=== PATIENT | female | born 1995 | race Caucasian/White ===

== ENCOUNTER 2017-05-08 15:54 | Observation (INO) | payer BC, OTHER ==
[2017-05-08] MEDS ORDERED: ONDANSETRON 4 MG/2 ML VIAL IVP STA (16:32)
[2017-05-08] MEDS ORDERED: SODIUM CHLORIDE 0.9% 1,000 ML IV ONE (16:32)
--- NOTE | 2017-05-08 16:36 | ED ---
General Adult HPI - General Chief complaint: Abdominal Pain Stated complaint: Abd pain Time Seen by Provider: 05/08/17 16:20 Source: patient, family, RN notes reviewed Mode of arrival: ambulatory Limitations: no limitations - History of Present Illness Initial comments: Chief complaint and history of present illness this is a 22-year-old female with complaint of upper and lower back pain and left lower abdominal pain. Ongoing for approximate 5 days. Nausea no vomiting no fever. The patient has not received a flu shot. Eating increases discomfort. - Related Data Previous Rx's Medication Instructions Recorded Ondansetron Odt [Zofran Odt] 4 mg PO Q8HR PRN #10 tab 05/08/17 Sulfamethox-Tmp 800-160Mg [Bactrim 1 each PO Q12HR #20 tab 05/08/17 DS 800-160 mg] Allergies Allergy/AdvReac Type Severity Reaction Status Date / Time No Known Allergies Allergy Verified 05/08/17 16:39 Review of Systems ROS Statement: Those systems with pertinent positive or pertinent negative responses have been documented in the HPI. review of systems. No headache or visual acuity changes no sore throat. No stiff neck. She complains discomfort to her upper back and shortness of breath. Nausea but no vomiting. Left lower lateral abdominal discomfort. Denies vaginal discharge. No flank pain. No significant change in urinary habits. No rashes no neuro deficits. All systems are reviewed. Past medical problems none. Surgeries none. Family history no cancers. ALLERGIES none. Patient's nonsmoker, nondrinker. She works at [employer] and does some lifting. ROS Other: All systems not noted in ROS Statement are negative. Past Medical History Past Medical History: No Reported History History of Any Multi-Drug Resistant Organisms: None Reported Past Surgical History: No Surgical Hx Reported Past Psychological History: No Psychological Hx Reported Smoking Status: Never smoker Past Alcohol Use History: None Reported Past Drug Use History: None Reported General Exam - General Exam Comments Initial Comments: General: The patient is awake and alert, complains of 5 days of upper back lower back discomfort and left sided abdominal discomfort. Eye: Pupils are equal, round and reactive to light, extra-ocular movements are intact ; there is normal conjunctiva bilaterally. No signs of icterus. Ears, nose, mouth and throat: There are moist mucous membranes and no oral lesions. Neck: The neck is supple, there is no tenderness , no anterior cervical lymphadenopathy. Thyroid mildly enlarged on swallow test. Patient told discuss this with her family physician. Cardiovascular: There is a regular rate and rhythm. No murmur, rub or gallop is appreciated. Respiratory: Lungs are clear to auscultation, respirations are non-labored, breath sounds are equal. No wheezes, stridor, rales, or rhonchi. Gastrointestinal: Soft, non-distended, non-tender abdomen without masses or organomegaly noted. There is no rebound or guarding present. No CVA tenderness. Bowel sounds are unremarkable.patient states her discomfort is to the left lower to lateral abdomen. Back: There is no tenderness to palpation in the midline. There is no obvious deformity. No rashes noted. Musculoskeletal: Normal ROM, no tenderness, There is no pedal edema. There is no calf tenderness or swelling. Sensation intact. Pulses equal bilaterally 2+. Neurological: no neuro deficits Skin: Skin is warm and dry and no rashes or lesions are noted. Psychiatric: Cooperative, no complaint of depression or anxiety. Limitations: no limitations Course Vital Signs 05/08/17 16:05 Temperature 99.1 F Pulse Rate 102 H Respiratory 18 Rate Blood Pressure 129/82 O2 Sat by Pulse 98 Oximetry Medical Decision Making - Medical Decision Making medical decision making; this is a 22-year-old female scone the emergency room because of back pain for 5 days no fever. Nausea no vomiting. She states eating does increase nausea and pain. labs white count 9 hemoglobin 14 hematocrit 45, d-dimer 0.53, calcium 3.7, BUN 14 creatinine 0.8 with a GFR greater than 60. Glucose 84. Plasma lactic acid normal at 0.8. Influenza AB-. test negative. Amylase lipase normal. Urine shows greater than 180 reds and 180 whites. Patient had x-rays the first of which the chest x-ray done and I reviewed the x- ray no evidence of an acute pneumonic infiltrate. No evidence of pneumothorax. bony architecture within normal limits. Awaiting radiologist's final impression. X-ray of the abdomen was done nonspecific gas pattern. No evidence of free air. awaiting radiologist's final impression. I discussed the patient her urinalysis which shows evidence of urinary tract infection. The patient was placed on Bactrim DS one twice a day 10 days and the patient will be advised to get her urine rechecked in 3-4 days later to make sure infections gone. Patient notes any worsening of her condition she is to return emergency room. - Lab Data Result diagrams: 05/08/17 16:15 05/08/17 16:15 Lab Results 05/08/17 05/08/17 05/08/17 Range/Units 16:15 16:15 16:15 WBC 9.0 (3.8-10.6) k/uL RBC 5.08 (3.80-5.40) m/uL Hgb 14.7 (11.4-16.0) gm/dL Hct 45.1 (34.0-46.0) % MCV 88.7 (80.0-100.0) fL MCH 29.0 (25.0-35.0) pg MCHC 32.7 (31.0-37.0) g/dL RDW 13.6 (11.5-15.5) % Plt Count 297 (150-450) k/uL Neutrophils % 84 % Lymphocytes % 10 % Monocytes % 4 % Eosinophils % 1 % Basophils % 0 % Neutrophils # 7.6 (1.3-7.7) k/uL Lymphocytes # 0.9 L (1.0-4.8) k/uL Monocytes # 0.4 (0-1.0) k/uL Eosinophils # 0.1 (0-0.7) k/uL Basophils # 0.0 (0-0.2) k/uL D-Dimer (<0.60) mg/L FEU Sodium 138 (137-145) mmol/L Potassium 3.7 (3.5-5.1) mmol/L Chloride 102 (98-107) mmol/L Carbon Dioxide 26 (22-30) mmol/L Anion Gap 10 mmol/L BUN 14 (7-17) mg/dL Creatinine 0.80 (0.52-1.04) mg/dL Est GFR (MDRD) Af Amer >60 (>60 ml/min/1.73 sqM) Est GFR (MDRD) Non-Af >60 (>60 ml/min/1.73 sqM) Glucose 84 (74-99) mg/dL Plasma Lactic Acid Zeus (0.7-2.0) mmol/L Calcium 9.3 (8.4-10.2) mg/dL Total Bilirubin 0.8 (0.2-1.3) mg/dL AST 21 (14-36) U/L ALT 21 (9-52) U/L Alkaline Phosphatase 68 (38-126) U/L Total Protein 7.3 (6.3-8.2) g/dL Albumin 4.3 (3.5-5.0) g/dL Amylase 44 (30-110) U/L Lipase 33 (23-300) U/L Urine Color Urine Appearance (Clear) Urine pH (5.0-8.0) Ur Specific [place] (1.001-1.035) Urine Protein (Negative) Urine Glucose (UA) (Negative) Urine Ketones (Negative) Urine Blood (Negative) Urine Nitrite (Negative) Urine Bilirubin (Negative) Urine Urobilinogen (<2.0) mg/dL Ur Leukocyte Esterase (Negative) Urine RBC (0-5) /hpf Urine WBC (0-5) /hpf Ur Squamous Epith Cells (0-4) /hpf Urine Mucus (None) /hpf Urine HCG, Qual Not Detected (Not Detectd) Influenza Type A RNA (Not Detectd) Influenza Type B (PCR) (Not Detectd) 05/08/17 05/08/17 05/08/17 Range/Units 16:15 16:15 16:50 WBC (3.8-10.6) k/uL RBC (3.80-5.40) m/uL Hgb (11.4-16.0) gm/dL Hct (34.0-46.0) % MCV (80.0-100.0) fL MCH (25.0-35.0) pg MCHC (31.0-37.0) g/dL RDW (11.5-15.5) % Plt Count (150-450) k/uL Neutrophils % % Lymphocytes % % Monocytes % % Eosinophils % % Basophils % % Neutrophils # (1.3-7.7) k/uL Lymphocytes # (1.0-4.8) k/uL Monocytes # (0-1.0) k/uL Eosinophils # (0-0.7) k/uL Basophils # (0-0.2) k/uL D-Dimer 0.53 (<0.60) mg/L FEU Sodium (137-145) mmol/L Potassium (3.5-5.1) mmol/L Chloride (98-107) mmol/L Carbon Dioxide (22-30) mmol/L Anion Gap mmol/L BUN (7-17) mg/dL Creatinine (0.52-1.04) mg/dL Est GFR (MDRD) Af Amer (>60 ml/min/1.73 sqM) Est GFR (MDRD) Non-Af (>60 ml/min/1.73 sqM) Glucose (74-99) mg/dL Plasma Lactic Acid Zeus 0.8 (0.7-2.0) mmol/L Calcium (8.4-10.2) mg/dL Total Bilirubin (0.2-1.3) mg/dL AST (14-36) U/L ALT (9-52) U/L Alkaline Phosphatase (38-126) U/L Total Protein (6.3-8.2) g/dL Albumin (3.5-5.0) g/dL Amylase (30-110) U/L Lipase (23-300) U/L Urine Color Red Urine Appearance Cloudy H (Clear) Urine pH 5.5 (5.0-8.0) Ur Specific [place] 1.022 (1.001-1.035) Urine Protein 1+ H (Negative) Urine Glucose (UA) Negative (Negative) Urine Ketones Negative (Negative) Urine Blood Large H (Negative) Urine Nitrite Negative (Negative) Urine Bilirubin Negative (Negative) Urine Urobilinogen <2.0 (<2.0) mg/dL Ur Leukocyte Esterase Small H (Negative) Urine RBC >182 H (0-5) /hpf Urine WBC >182 H (0-5) /hpf Ur Squamous Epith Cells 6 H (0-4) /hpf Urine Mucus Occasional H (None) /hpf Urine HCG, Qual (Not Detectd) Influenza Type A RNA (Not Detectd) Influenza Type B (PCR) (Not Detectd) 05/08/17 Range/Units 16:50 WBC (3.8-10.6) k/uL RBC (3.80-5.40) m/uL Hgb (11.4-16.0) gm/dL Hct (34.0-46.0) % MCV (80.0-100.0) fL MCH (25.0-35.0) pg MCHC (31.0-37.0) g/dL RDW (11.5-15.5) % Plt Count (150-450) k/uL Neutrophils % % Lymphocytes % % Monocytes % % Eosinophils % % Basophils % % Neutrophils # (1.3-7.7) k/uL Lymphocytes # (1.0-4.8) k/uL Monocytes # (0-1.0) k/uL Eosinophils # (0-0.7) k/uL Basophils # (0-0.2) k/uL D-Dimer (<0.60) mg/L FEU Sodium (137-145) mmol/L Potassium (3.5-5.1) mmol/L Chloride (98-107) mmol/L Carbon Dioxide (22-30) mmol/L Anion Gap mmol/L BUN (7-17) mg/dL Creatinine (0.52-1.04) mg/dL Est GFR (MDRD) Af Amer (>60 ml/min/1.73 sqM) Est GFR (MDRD) Non-Af (>60 ml/min/1.73 sqM) Glucose (74-99) mg/dL Plasma Lactic Acid Zeus (0.7-2.0) mmol/L Calcium (8.4-10.2) mg/dL Total Bilirubin (0.2-1.3) mg/dL AST (14-36) U/L ALT (9-52) U/L Alkaline Phosphatase (38-126) U/L Total Protein (6.3-8.2) g/dL Albumin (3.5-5.0) g/dL Amylase (30-110) U/L Lipase (23-300) U/L Urine Color Urine Appearance (Clear) Urine pH (5.0-8.0) Ur Specific [place] (1.001-1.035) Urine Protein (Negative) Urine Glucose (UA) (Negative) Urine Ketones (Negative) Urine Blood (Negative) Urine Nitrite (Negative) Urine Bilirubin (Negative) Urine Urobilinogen (<2.0) mg/dL Ur Leukocyte Esterase (Negative) Urine RBC (0-5) /hpf Urine WBC (0-5) /hpf Ur Squamous Epith Cells (0-4) /hpf Urine Mucus (None) /hpf Urine HCG, Qual (Not Detectd) Influenza Type A RNA Not Detected (Not Detectd) Influenza Type B (PCR) Not Detected (Not Detectd) Disposition Clinical Impression: Urinary tract infection Disposition: HOME SELF-CARE Condition: Fair Instructions: Urinary Tract Infection in Women (ED) Additional Instructions: Increase fluids. Take Bactrim twice a day for 10 days, get urine rechecked several days later. Use Zofran for nausea. Increase fluid intake. Return emergency room if he have any difficulties. Prescriptions: Ondansetron Odt [Zofran Odt] 4 mg PO Q8HR PRN #10 tab PRN Reason: Nausea Sulfamethox-Tmp 800-160Mg [Bactrim DS 800-160 mg] 1 each PO Q12HR #20 tab Referrals: None,Stated [Primary Care Provider] - 1-2 days Time of Disposition: 18:05
[2017-05-08 16:47] LABS: Basophils % (A) 0 %; Eosinophils # (A) 0.1 k/uL (0-0.7); Eosinophils % (A) 1 %; HCT 45.1 % (34.0-46.0); HGB 14.7 gm/dL (11.4-16.0); Lymphocytes # (A) 0.9 k/uL (1.0-4.8); Lymphocytes % (A) 10 %; MCHC 32.7 g/dL (31.0-37.0); MCV 88.7 fL (80.0-100.0); Mean Platelet Volume 7.1; Monocytes # (A) 0.4 k/uL (0-1.0); Monocytes % (A) 4 %; Neutrophils # (A) 7.6 k/uL (1.3-7.7); Neutrophils % (A) 84 %; Platelet Count 297 k/uL (150-450); RBC 5.08 m/uL (3.80-5.40); RDW 13.6 % (11.5-15.5)
[2017-05-08 16:56] LABS: ALT 21 U/L (9-52); AST 21 U/L (14-36); Albumin 4.3 g/dL (3.5-5.0); Alkaline Phosphatase 68 U/L (38-126); Amylase 44 U/L (30-110); Anion Gap 10 mmol/L; Blood Urea Nitrogen 14 mg/dL (7-17); Calcium 9.3 mg/dL (8.4-10.2); Carbon Dioxide 26 mmol/L (22-30); Chloride 102 mmol/L (98-107); Glucose 84 mg/dL (74-99); Lipase 33 U/L (23-300); Sodium 138 mmol/L (137-145); Total Bilirubin 0.8 mg/dL (0.2-1.3); Total Protein 7.3 g/dL (6.3-8.2)
[2017-05-08 16:58] LABS: Appearance,Urine Cloudy (Clear); Bilirubin,Urine Negative (Negative); Blood,Urine Large (Negative); Color,Urine Red; Glucose,Urine (UA) Negative (Negative); Ketones,Urine Negative (Negative); Leukocyte Esterase,Urine Small (Negative); Mucus,Urine Occasional /hpf; Nitrite,Urine Negative (Negative); PH, Urine 5.5 (5.0-8.0); Protein,Urine 1+ (Negative); RBC,Urine >182 /hpf (0-5); Specific Gravity,Urine 1.022 (1.001-1.035); Squamous Epithelial Cell,Urine 6 /hpf (0-4); Urobilinogen,Urine <2.0 mg/dL (<2.0); WBC,Urine >182 /hpf (0-5)
[2017-05-08 17:07] LABS: Potassium 3.7 mmol/L (3.5-5.1)
[2017-05-08] MEDS ORDERED: ONDANSETRON 4 MG ODT STARTER PACK 2 TAB BTL PO STA (18:03)
[2017-05-08] MEDS ORDERED: SULFAMETH-TMP DS STARTER PACK 2 TAB BTL PO STA (18:03)
--- NOTE | 2017-05-08 18:05 | XR ---
EXAMINATION: XR chest 2V DATE AND TIME: 05/08/2017 5:21 PM ORDERING PROVIDER: Catracho Rodriguez MD CLINICAL INDICATION: Short of breath left-sided abdominal pain TECHNIQUE: PA and lateral COMPARISON: None. DESCRIPTION: The lungs are clear. The pleural spaces are negative. The cardiac silhouette is not enlarged. The mediastinal and pleural silhouettes are unremarkable. The skeletal structures are intact without focal findings. The soft tissues are unremarkable. IMPRESSION: NO ACUTE PROCESS.
--- NOTE | 2017-05-08 18:07 | XR ---
EXAMINATION TYPE: XR abdomen 3V DATE OF EXAM: 05/08/2017 COMPARISON: 12/07/2014 HISTORY: Left-sided abdominal pain and shortness of breath TECHNIQUE: 2 supine and 1 upright view FINDINGS: There is no pneumatosis and no pneumoperitoneum. No bowel obstruction. The skeletal structu res and soft tissues are unremarkable. IMPRESSION: No acute process.
[2017-05-08] MEDS ORDERED: NALOXONE 0.4 MG/ML 1 ML VIAL IV PRN (18:21)
[2017-05-08] MEDS ORDERED: ACETAMINOPHEN TAB 325 MG TAB PO PRN (18:21)
[2017-05-08] MEDS ORDERED: ONDANSETRON 4 MG/2 ML VIAL IVP PRN (18:21)
[2017-05-08] MEDS ORDERED: SODIUM CHLORIDE 0.9% 1,000 ML IV SCH (18:30)
[2017-05-08] MEDS: cefTRIAXone IN SWFI 1,000 MG/10 ML SYRINGE IVP SCH (19:03)
[2017-05-08] MEDS: SODIUM CHLORIDE 0.9% 1,000 ML IV SCH (19:03)
[2017-05-08] MEDS: FAMOTIDINE 20 MG TAB PO SCH (19:50)
[2017-05-08] MEDS: KETOROLAC 30 MG/ML 1 ML VIAL IVP SCH (20:11)
--- NOTE | 2017-05-08 20:58 | P.HPIM ---
History of Present Illness H&P Date: 05/08/17 Chief Complaint: right flank pain 22 year old female with no singificant past medical history ,, presented with 5 day history of lower back pain radiating to the right flank. She reports sudden onset pain 10/10 in severity, throbbing in nature, that improves with laying still, and worsens with movement , no other associated symptoms, she denies any dysuria, frequency , hematuria, nausea or vomiting, denies any fever or chills. SHe also noticed lower abd pain in the suprapubic region radiating to the right lower quadrant of the abdomen. denies any diarrhea or constipation. She denies any similar events in the past or any history of renal stones. she denies any history of UTI. SHe is sexually active but uses protection, test in the ED was negative. Patient initially was supposed to be sent home from the ED on bactrim, but upon reevaluation prior to discharge she was found in severe pain therefore she was admitted under observation for IV ABx. She denies any recent physical strain, like moving furniture or new workout regimen , she basically reports no changes in her routine life for the past few months, she works at [employer] Upon interviewing the patient , she still reports severe debilitating pain when she moves around, therefore she is trying to lay still . Patient also reported that her period has started today Review of Systems Constitutional: Patient denies fever, denies chills, denies night sweating, denies significant weight changes Eyes: Patient denies visual changes, denies eye pain ENT: Patient denies ear pain, denies rhinorrhea, denies sore throat Cardiovascular: Patient denies chest pain, denies exertional dyspnea, denies peripheral leg edema, denies orthopnea, denies paroxysmal nocturnal dyspnea Respiratory:Patient denies cough, denies wheezing, denies shortness of breath Gastrointestinal: Patient denies diarrhea, denies constipation, denies nausea , denies vomiting Genitourinary: Patient denies dysuria, denies hematuria, denies changes in urinary habits, denies genital lesions Musculoskeletal: Patient denies muscle pain, denies joint pain Psychiatric: Patient denies changes in mood or memory, denies suicidal ideation, denies anxiety Endocrine: Patient denies heat intolerance, denies cold intolerance, denies excessive thirst, denies polyuria Neurological: Patient denies focal neurologic deficits, denies weakness, denies numbness, denies tingling Hem/Lymphatic: Patient denies bleeding tendency, denies bruising, denies swollen lymph glands Allergic/Immun: Patient denies recent allergic reactions Skin: Patient denies rashes, denies pruritis, denies ulcers Past Medical History Past Medical History: No Reported History History of Any Multi-Drug Resistant Organisms: None Reported Past Surgical History: No Surgical Hx Reported Past Anesthesia/Blood Transfusion Reactions: No Reported Reaction Smoking Status: Never smoker - Past Family History Father History Unknown: Yes Mother Family Medical History: Fibromyalgia Additional Family Medical History / Comment(s): emphysema Medications and Allergies Home Medications and Allergies Comment(s): patient takes over the counter aleve occasionally for headaches Home Medications Medication Instructions Recorded Confirmed Type Ondansetron Odt [Zofran Odt] 4 mg PO Q8HR PRN #10 tab 05/08/17 Rx Sulfamethox-Tmp 800-160Mg [Bactrim 1 each PO Q12HR #20 tab 05/08/17 Rx DS 800-160 mg] Allergies Allergy/AdvReac Type Severity Reaction Status Date / Time No Known Allergies Allergy Verified 05/08/17 16:39 Physical Exam Vitals: Vital Signs Temp Pulse Pulse Resp BP BP Pulse Ox 05/08/17 19:42 98.7 F 98 18 115/58 98 05/08/17 18:18 98.7 F 90 16 125/76 98 05/08/17 16:05 99.1 F 102 H 18 129/82 98 Intake and Output 05/08/17 05/08/17 05/08/17 06:59 14:59 22:59 Intake Total 360 Balance 360 Intake: Oral 360 Other: Weight 56.1 kg Patient Weight 05/09/17 06:59 Weight 56.1 kg Constitutional: No acute distress, conversant, pleasant Eyes: Anicteric sclerae, moist conjunctiva, no lid-lag Pupils equal round reactive to light ENMT: NC/AT Oropharynx clear, no erythema, exudates Neck: Supple, FROM, no masses, or JVD No carotid bruits No thyromegaly Lungs: Clear to auscultation Clear to percussion Normal respiratory effort, no accessory muscle use Cardiovascular: Heart regular in rate and rhythm, No murmurs, gallops, or rubs No peripheral edema Abdominal: Soft,, tender to deep palpation over the suprapubic region, no guarding, rebound or rigidity tenderness to palpation of the left CVA Abdomen moving with respiration Normoactive bowel sounds No hepatomegaly, No splenomegaly No palpable mass No abdominal wall hernia noted Skin: Normal temperature, tone, texture, turgor No induration No subcutaneous nodules No rash, lesions No ulcers Extremities: No digital cyanosis No clubbing Pedal pulses intact and symmetrical Radial pulses intact and symmetrical No calf tenderness Psychiatric: Alert and oriented to person, place and time Appropriate affect fair judgement Neuro Muscles Strength 5/5 in all 4 extremities Sensation to light touch grossly present throughout Cranial nerves II-XII grossly intact No focal sensory deficits Lymphatics: no palpable cervical or supraclavicular , or inguinal lymph nodes Results CBC & Chem 7: 05/08/17 16:15 05/08/17 16:15 Labs: Abnormal Lab Results - Last 24 Hours (Table) 05/08/17 05/08/17 Range/Units 16:15 16:15 Lymphocytes # 0.9 L (1.0-4.8) k/uL Urine Appearance Cloudy H (Clear) Urine Protein 1+ H (Negative) Urine Blood Large H (Negative) Ur Leukocyte Esterase Small H (Negative) Urine RBC >182 H (0-5) /hpf Urine WBC >182 H (0-5) /hpf Ur Squamous Epith Cells 6 H (0-4) /hpf Urine Mucus Occasional H (None) /hpf Assessment and Plan Assessment: 22 year old female with no significant history , presented with symptoms of left flank pain, UA was positive, which raised suspicion for acute pyelonephritis (1) Acute pyelonephritis Narrative/Plan: rocephine IV urine culture pain control with toradol symptoms are not typical for kidney stones Current Visit: Yes Status: Acute Code(s): N10 - ACUTE PYELONEPHRITIS SNOMED Code(s): 31100494 (2) DVT prophylaxis Narrative/Plan: heparin sc Current Visit: Yes Status: Acute Code(s): QWK4272 - SNOMED Code(s): 289558879 Plan: Surrogate decision-maker: Colt (sumeet) CODE STATUS:full code DVT prophylaxis: heparin Discussed with: Patient, ER, RN Anticipated discharge: <48 hours observation status Anticipated discharge place: home A total of 42 minutes were spent on the care of this complex patient more than 50% of the time was spent in counseling and care coordination.
[2017-05-09] MEDS: KETOROLAC 30 MG/ML 1 ML VIAL IVP SCH ×4 (02:11→20:14)
[2017-05-09 06:57] LABS: Basophils % (A) 0 %; Eosinophils % (A) 1 %; HCT 41.4 % (34.0-46.0); HGB 13.8 gm/dL (11.4-16.0); Lymphocytes # (A) 0.9 k/uL (1.0-4.8); Lymphocytes % (A) 21 %; MCH 29.2 pg (25.0-35.0); MCHC 33.2 g/dL (31.0-37.0); MCV 87.9 fL (80.0-100.0); Mean Platelet Volume 6.7; Monocytes # (A) 0.3 k/uL (0-1.0); Monocytes % (A) 6 %; Neutrophils # (A) 2.9 k/uL (1.3-7.7); Neutrophils % (A) 69 %; Platelet Count 237 k/uL (150-450); RBC 4.72 m/uL (3.80-5.40); RDW 12.3 % (11.5-15.5); WBC 4.1 k/uL (3.8-10.6)
[2017-05-09 07:14] LABS: Anion Gap 8 mmol/L; Blood Urea Nitrogen 14 mg/dL (7-17); Calcium 8.4 mg/dL (8.4-10.2); Carbon Dioxide 23 mmol/L (22-30); Chloride 107 mmol/L (98-107); Glucose 84 mg/dL (74-99); Potassium 3.8 mmol/L (3.5-5.1); Sodium 138 mmol/L (137-145)
[2017-05-09] MEDS: SODIUM CHLORIDE 0.9% 1,000 ML IV SCH ×3 (09:17→18:30)
[2017-05-09] MEDS: FAMOTIDINE 20 MG TAB PO SCH ×2 (09:18→22:18)
--- NOTE | 2017-05-09 10:40 | P.PN ---
Subjective Progress Note Date: 05/09/17 Principal diagnosis: pyelonephritis 22 y/o female that comes with sxs of fever and flank pain. Today she continues to have pain /10, she denies chill, no dysuria. Objective - Vital Signs Vital signs: Vital Signs Temp 97.4 F L 05/09/17 08:05 Pulse 72 05/09/17 08:05 Resp 16 05/09/17 08:05 BP 114/74 05/09/17 08:05 Pulse Ox 98 05/09/17 08:05 Intake & Output 05/08/17 05/09/17 05/09/17 18:59 06:59 18:59 Intake Total 360 Balance 360 Weight 79.379 kg 56.1 kg Intake: Oral 360 Other: Voiding Method Toilet # Voids 2 - Exam gen:alert and oriented lungs:clear to auscultation heart:s1s2 abdomen:soft and depressible,non tender Lt cva tenderness ext:no edema - Labs CBC & Chem 7: 05/09/17 06:28 05/09/17 06:28 Labs: Abnormal Lab Results - Last 24 Hours (Table) 05/08/17 05/08/17 05/09/17 Range/Units 16:15 16:15 06:28 Lymphocytes # 0.9 L 0.9 L (1.0-4.8) k/uL Urine Appearance Cloudy H (Clear) Urine Protein 1+ H (Negative) Urine Blood Large H (Negative) Ur Leukocyte Esterase Small H (Negative) Urine RBC >182 H (0-5) /hpf Urine WBC >182 H (0-5) /hpf Ur Squamous Epith Cells 6 H (0-4) /hpf Urine Mucus Occasional H (None) /hpf Microbiology - Last 24 Hours (Table) 05/08/17 16:15 Urine Culture - Preliminary Urine,Voided Assessment and Plan (1) Acute pyelonephritis Narrative/Plan: Pain 7 out of 10 at this time UA showing hematuria We'll order CT abdomen and pelvis rule out stone Current Visit: Yes Status: Acute Code(s): N10 - ACUTE PYELONEPHRITIS SNOMED Code(s): 29076471 (2) DVT prophylaxis Current Visit: Yes Status: Acute Code(s): [id number] - SNOMED Code(s): 338882805
--- NOTE | 2017-05-09 11:22 | CT ---
EXAMINATION TYPE: CT abdomen pelvis wo con DATE OF EXAM: 05/09/2017 COMPARISON: NONE HISTORY: Lt flank pain CT DLP: 671.5 mGycm Automated exposure control for dose reduction was used. FINDINGS: Visualized portions of the lungs are clear. There is no pleural or pericardial fluid. The h eart is not enlarged. Within the abdomen, the liver and gallbladder are normal. The spleen is mildly prominent measuring 14 cm. Both adrenal glands are normal. There is no evidence of nephrolithiasis or hydronephrosis. Limited views of the pancreas are normal. There is no significant retroperitoneal, iliac or inguinal adenopathy. The bladder is unremarkable. The uterus is unremarkable. There is follicular change in both ovaries. There is mucosal thickening involving the descending and sigmoid colons. The appendix is normal. Small bowel loops are normal in caliber. No free air and no free fluid is seen. No osseous lesion is seen. IMPRESSION: 1. SPLENOMEGALY. 2. THICKENING OF THE SIGMOID AND DESCENDING COLONS. PLEASE CORRELATE FOR COLITIS. 3. NO EVIDENCE OF HYDRONEPHROSIS OR NEPHROLITHIASIS.
[2017-05-09] MEDS: cefTRIAXone IN SWFI 1,000 MG/10 ML SYRINGE IVP SCH (20:16)
[2017-05-10] MEDS: KETOROLAC 30 MG/ML 1 ML VIAL IVP SCH (01:37)
[2017-05-10 01:50] VITALS: PULSE 74
[2017-05-10 06:36] VITALS: BP 92/58; TEMP 97.9
[2017-05-10 06:38] LABS: HCT 41.6 % (34.0-46.0); HGB 13.4 gm/dL (11.4-16.0); MCH 29.3 pg (25.0-35.0); MCHC 32.1 g/dL (31.0-37.0); MCV 91.3 fL (80.0-100.0); Platelet Count 262 k/uL (150-450); RBC 4.56 m/uL (3.80-5.40); RDW 13.8 % (11.5-15.5); WBC 5.7 k/uL (3.8-10.6)
[2017-05-10 06:56] LABS: Anion Gap 6 mmol/L; Blood Urea Nitrogen 10 mg/dL (7-17); Calcium 8.2 mg/dL (8.4-10.2); Carbon Dioxide 24 mmol/L (22-30); Chloride 109 mmol/L (98-107); Glucose 86 mg/dL (74-99); Potassium 4.1 mmol/L (3.5-5.1); Sodium 139 mmol/L (137-145)
--- NOTE | 2017-05-10 08:38 | P.PN ---
Subjective Progress Note Date: 05/10/17 Principal diagnosis: Flank pain Flank pain better today. No hematuria no dysuria. No fever no chills Objective - Vital Signs Vital signs: Vital Signs Temp 97.9 F 05/10/17 04:00 Pulse 74 05/10/17 04:00 Resp 18 05/10/17 04:00 BP 92/58 05/10/17 04:00 Pulse Ox 96 05/10/17 04:00 Intake & Output 05/09/17 05/10/17 05/10/17 18:59 06:59 18:59 Intake Total 300 Balance 300 Intake: Oral 300 Other: Voiding Method Toilet # Voids 1 1 # Bowel Movements 0 0 - Exam gen:alert and oriented lungs:clear to auscultation heart:s1s2 abdomen:soft and depressible,non tender ext:no edema - Labs CBC & Chem 7: 05/10/17 06:20 05/10/17 06:20 Labs: Abnormal Lab Results - Last 24 Hours (Table) 05/10/17 Range/Units 06:20 Chloride 109 H (98-107) mmol/L Calcium 8.2 L (8.4-10.2) mg/dL Microbiology - Last 24 Hours (Table) 05/08/17 16:15 Urine Culture - Final Urine,Voided Assessment and Plan (1) Urinary tract infection Narrative/Plan: Continue Bactrim for 3 more days Current Visit: Yes Status: Acute Code(s): N39.0 - URINARY TRACT INFECTION, SITE NOT SPECIFIED SNOMED Code(s): 45688847 (2) Flank pain Narrative/Plan: No signs of pyelonephritis CT Current Visit: Yes Status: Acute Code(s): R10.9 - UNSPECIFIED ABDOMINAL PAIN SNOMED Code(s): 541049686 (3) DVT prophylaxis Current Visit: Yes Status: Acute Code(s): JON1789 - SNOMED Code(s): 601525994 Plan: Discharge home today Follow up with Dr. Bee
--- NOTE | 2017-05-10 08:44 | P.DS ---
Providers Date of admission: 05/08/17 18:21 Expected date of discharge: 05/10/17 Attending physician: Melva Curran MD Primary care physician: Stated None - Discharge Diagnosis(es) (1) Urinary tract infection Current Visit: Yes Status: Acute (2) Flank pain Current Visit: Yes Status: Acute (3) DVT prophylaxis Current Visit: Yes Status: Acute Hospital Course: This is a 22-year-old female that presented with symptoms of flank pain. Patient was evaluated in the ER showed some blood in the urine. CT of the abdomen was done was negative. Patient did have bacteria in the urine. At this point patient will be discharged home continue Bactrim for 3 more days then we'll need to follow-up with her primary care physician. Patient was given name of Dr. Alvarez follow-up with her. Condition at discharge stable Discharge time 32 minutes Patient Condition at Discharge: Stable Plan - Discharge Summary Discharge Rx Participant: No New Discharge Prescriptions: New Ondansetron Odt [Zofran Odt] 4 mg PO Q8HR PRN #10 tab PRN Reason: Nausea Sulfamethox-Tmp 800-160Mg [Bactrim DS 800-160 mg] 1 tab PO Q12HR #6 tab Discharge Medication List Ondansetron Odt [Zofran Odt] 4 mg PO Q8HR PRN #10 tab 05/08/17 [Rx] Sulfamethox-Tmp 800-160Mg [Bactrim DS 800-160 mg] 1 tab PO Q12HR #6 tab [Rx] Follow up Appointment(s)/Referral(s): Suzan Bee MD [STAFF PHYSICIAN] - 1 Week Patient Instructions/Handouts: Urinary Tract Infection in Women (ED) Activity/Diet/Wound Care/Special Instructions: Increase fluids. Take Bactrim twice a day for 10 days, get urine rechecked several days later. Use Zofran for nausea. Increase fluid intake. Return emergency room if he have any difficulties.
[2017-05-10 08:51] VITALS: RESP 16
== END 2017-05-10 09:26 | disposition home or self-care (01) ==
LOC: EC 15:54 → 3OBS 18:21 → 6PED 05-09 07:36
PROVIDERS: ADMIT Internal Medicine; ATTEND Internal Medicine
DX: N39.0 Urinary tract infection, site not specified (principal); Z82.5 Family history of asthma and other chronic lower respiratory diseases; Z82.69 Family history of other diseases of the musculoskeletal system and connective tissue
CPT/HCPCS: 96375 ×2; 96376 ×2; 96361; 96374; 99285; 36415; 85379; 80053; 80048 ×2; 82150; 83605; 83690; 85025 ×2; 85027; 81001; 81025; 87086; 87502; 71046; 74019; 74176; G0378 ×3; J2405 ×2; J0696 ×2; J1885 ×3

== ENCOUNTER 2017-08-10 16:39 | Emergency (ER) | payer BC, OTHER ==
--- NOTE | 2017-08-10 17:25 | ED ---
General Adult HPI - General Chief complaint: Extremity Injury, Lower Stated complaint: Knee injury-[facility] Time Seen by Provider: 08/10/17 17:16 Source: patient, RN notes reviewed Mode of arrival: wheelchair Limitations: no limitations - History of Present Illness Initial comments: Patient 22-year-old female presented to the emergency room today with a chief complaint of injury to the left knee that occurred approximately 2 and half hours ago. She does admit that she was at work when she ran into a piece of equipment when she was walking. She states she felt like something popped in the left knee. She states that since that time she had a difficult time ambulating and with flexion at the left knee due to pain. Patient states she did take some ibuprofen after the accident but states it is not made much of an improvement. She denies any other injury or complaint. Patient denies any recent fever, chills, shortness of breath, chest pain, back pain, abdominal pain , nausea or vomiting, numbness or tingling, headaches or visual changes, or any other complaints. - Related Data Home Medications Medication Instructions Recorded Confirmed No Known Home Medications [No 08/10/17 08/10/17 Known Home Medications] Allergies Allergy/AdvReac Type Severity Reaction Status Date / Time No Known Allergies Allergy Verified 08/10/17 18:05 Review of Systems ROS Statement: Those systems with pertinent positive or pertinent negative responses have been documented in the HPI. ROS Other: All systems not noted in ROS Statement are negative. Past Medical History Past Medical History: No Reported History History of Any Multi-Drug Resistant Organisms: None Reported Past Surgical History: No Surgical Hx Reported Past Anesthesia/Blood Transfusion Reactions: No Reported Reaction Past Psychological History: No Psychological Hx Reported Smoking Status: Never smoker Past Alcohol Use History: None Reported Past Drug Use History: None Reported - Past Family History Father History Unknown: Yes Mother Family Medical History: Fibromyalgia Additional Family Medical History / Comment(s): emphysema General Exam - General Exam Comments Initial Comments: General: The patient is awake and alert, in no distress, and does not appear acutely ill. Neck: The neck is supple, there is no tenderness or JVD. Cardiovascular: There is a regular rate and rhythm. No murmur, rub or gallop is appreciated. Respiratory: Lungs are clear to auscultation, respirations are non-labored, breath sounds are equal. No wheezes, stridor, rales, or rhonchi. Musculoskeletal: Normal appearance of the left knee no obvious deformity. Patient shows limited range of motion of flexion at the left knee due to pain. She is tender over the anterior aspect. Tender over the patella. No other bony tenderness on exam. Sensation intact. Neurological: A&O x 3. CN II-XII intact, There are no obvious motor or sensory deficits. Coordination appears grossly intact. Speech is normal. Skin: Skin is warm and dry and no rashes or lesions are noted. Psychiatric: Normal mood and affect. Limitations: no limitations Course Vital Signs 08/10/17 17:15 Temperature 98 F Pulse Rate 85 Respiratory 16 Rate Blood Pressure 130/77 O2 Sat by Pulse 99 Oximetry Medical Decision Making - Medical Decision Making Patient's x-rays reviewed are negative for any acute fracture dislocation. Patient will be placed in knee immobilizer given prescription for crutches and advised follow-up with employee health orthopedics for further evaluation. Advised ice elevate the affected area and continue with ibuprofen for pain. Disposition Clinical Impression: Knee injury Disposition: HOME SELF-CARE Condition: Good Instructions: Knee Pain (ED) Additional Instructions: Please line when up and moving around. Please do not sleep with it on. Please use crutches with weightbearing as tolerated and follow-up with employee health or orthopedics over the next 2 days. Please continue ibuprofen for pain. Please return to emergency room if the symptoms increase or worsen or for any other concerns. Is patient prescribed a controlled substance at d/c from ED?: No Referrals: None,Stated [Primary Care Provider] - 1-2 days Christopher Salazar MD [STAFF PHYSICIAN] - 1-2 days Time of Disposition: 18:21
[2017-08-10 17:29] VITALS: BP 130/77; PULSE 85; RESP 16; TEMP 98
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
== END 2017-08-10 18:50 | disposition home or self-care (01) ==
LOC: EC 16:39
DX: S89.92XA Unspecified injury of left lower leg, initial encounter (principal); Z02.9 Encounter for administrative examinations, unspecified; Y99.0 Civilian activity done for income or pay; Y93.01 Activity, walking, marching and hiking; W22.8XXA Striking against or struck by other objects, initial encounter
CPT/HCPCS: 73564; 99214; 99283; L1830 ×2

== ENCOUNTER 2017-09-20 18:44 | Emergency (ER) | payer BC, OTHER ==
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
[2017-09-20 19:25] LABS: Basophils # (A) 0.1 k/uL (0-0.2); Basophils % (A) 1 %; Eosinophils # (A) 0.2 k/uL (0-0.7); Eosinophils % (A) 2 %; HCT 42.5 % (34.0-46.0); HGB 14.5 gm/dL (11.4-16.0); Lymphocytes # (A) 2.5 k/uL (1.0-4.8); Lymphocytes % (A) 26 %; MCH 29.8 pg (25.0-35.0); MCHC 34.2 g/dL (31.0-37.0); MCV 87.1 fL (80.0-100.0); Mean Platelet Volume 6.5; Monocytes # (A) 0.4 k/uL (0-1.0); Monocytes % (A) 5 %; Neutrophils # (A) 6.4 k/uL (1.3-7.7); Neutrophils % (A) 66 %; Platelet Count 349 k/uL (150-450); RBC 4.88 m/uL (3.80-5.40); RDW 12.7 % (11.5-15.5); WBC 9.6 k/uL (3.8-10.6)
[2017-09-20 19:32] LABS: Partial Thromboplastin Time 25.7 sec (22.0-30.0); Prothrombin Time 10.1 sec (9.0-12.0)
[2017-09-20 19:34] LABS: ALT 25 U/L (9-52); AST 20 U/L (14-36); Albumin 4.3 g/dL (3.5-5.0); Alcohol <10 mg/dL; Alkaline Phosphatase 78 U/L (38-126); Anion Gap 14 mmol/L; Blood Urea Nitrogen 13 mg/dL (7-17); Calcium 9.4 mg/dL (8.4-10.2); Carbon Dioxide 24 mmol/L (22-30); Chloride 106 mmol/L (98-107); Glucose 91 mg/dL (74-99); Potassium 4.1 mmol/L (3.5-5.1); Sodium 144 mmol/L (137-145); Total Bilirubin 0.6 mg/dL (0.2-1.3); Total Protein 7.3 g/dL (6.3-8.2)
[2017-09-20 19:37] LABS: Creatine Kinase 71 U/L (30-135)
[2017-09-20 19:38] LABS: Alcohol <10 mg/dL; Amylase 51 U/L (30-110); Lipase 62 U/L (23-300)
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
[2017-09-20 19:50] LABS: Creatine Kinase MB 0.3 ng/mL (0.0-2.4); HCG,Quantitative Serum <2.4 mIU/mL; Troponin I <0.012 ng/mL (0.000-0.034)
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
[2017-09-20 20:55] LABS: Appearance,Urine Clear (Clear); Bacteria,Urine Rare /hpf; Bilirubin,Urine Negative (Negative); Blood,Urine Large (Negative); Color,Urine Yellow; Glucose,Urine (UA) Negative (Negative); Ketones,Urine Trace (Negative); Leukocyte Esterase,Urine Trace (Negative); Mucus,Urine Occasional /hpf; Nitrite,Urine Negative (Negative); PH, Urine 6.5 (5.0-8.0); Protein,Urine 1+ (Negative); RBC,Urine >182 /hpf (0-5); Specific Gravity,Urine 1.026 (1.001-1.035); Squamous Epithelial Cell,Urine 3 /hpf (0-4); WBC,Urine 9 /hpf (0-5)
[2017-09-20 21:03] LABS: Amphetamine Screen,Urine Not Detected (NotDetected); Barbiturate Screen,Urine Not Detected (NotDetected); Benzodiazepines Screen,Urine Not Detected (NotDetected); Cocaine Screen,Urine Not Detected (NotDetected); Methadone Screen, Urine Not Detected (NotDetected); Opiate Screen,Urine Not Detected (NotDetected); Oxycodone Screen, Urine Not Detected (NotDetected); Phencyclidine Screen,Urine Not Detected (NotDetected); Tricyclic Antidepressant,Urine Not Detected (NotDetected); Urn Cannabinoid Scrn Not Detected (NotDetected)
[2017-09-20 22:45] VITALS: BP 123/63; PULSE 72; RESP 17; TEMP 98.1
== END 2017-09-20 22:35 | disposition home or self-care (01) ==
LOC: EC 18:44
DX: S06.0X0A Concussion without loss of consciousness, initial encounter (principal); M54.2 Cervicalgia; V86.09XA Driver of other special all-terrain or other off-road motor vehicle injured in traffic accident, initial encounter; Y92.410 Unspecified street and highway as the place of occurrence of the external cause
CPT/HCPCS: 99285; 36415; 93005; 86900; 86901; 80053; 82150; 82550; 82553; 83605; 83690; 84484; 85025; 85610; 85730; 86850; 81001; 81025; 84702; 80306; 80320; 72170; 71045; 72125; 70450; L0120

== ENCOUNTER → 2017-12-03 | Outpatient (CLI) | payer BC ==
--- NOTE | 2017-12-03 09:54 | XR ---
EXAMINATION TYPE: XR foot complete LT DATE OF EXAM: 12/03/2017 COMPARISON: NONE HISTORY: Pain and swelling TECHNIQUE: Three views are submitted. FINDINGS: The osseous structures are intact. There is no acute fracture or dislocation. Joint spaces are p reserved. IMPRESSION: 1. No acute fracture or dislocation. If symptoms persist, follow-up exam in 7 to 10 days could be ob tained.
== END | disposition home or self-care (01) ==
LOC: RADXRMAIN 08:52
PROVIDERS: ATTEND Physician Assistant
DX: M79.672 Pain in left foot (principal)

== ENCOUNTER → 2017-12-04 | Outpatient (CLI) | payer BC ==
--- NOTE | 2017-12-04 13:15 | XR ---
Left ankle HISTORY: Pain 3 views of the left ankle There is soft tissue swelling present. Bone mineralization, joint spaces and alignment are maintained . No fracture or dislocation. IMPRESSION: Soft tissue swelling.
== END | disposition home or self-care (01) ==
LOC: RADXRMAIN 10:03
PROVIDERS: ATTEND Physician Assistant
DX: M79.89 Other specified soft tissue disorders (principal); M25.572 Pain in left ankle and joints of left foot

== ENCOUNTER 2018-10-29 19:14 | Emergency (ER) | payer BC, OTHER ==
[2018-10-29] MEDS ORDERED: METOCLOPRAMIDE 5 MG/ML 2 ML VIAL IVP STA (21:37)
[2018-10-29] MEDS ORDERED: DEXTROSE 5%-0.45% NACL 1,000 ML IV ONE (21:37)
[2018-10-29] MEDS ORDERED: ACETAMINOPHEN TAB 325 MG TAB PO STA (22:00)
--- NOTE | 2018-10-29 22:15 | ED ---
Nausea/Vomiting/Diarrhea HPI - General Chief complaint: Abdominal Pain Stated complaint: 11 weeks , vomiting, back pain Time Seen by Provider: 10/29/18 21:36 Source: patient, family Mode of arrival: EMS Limitations: no limitations - History of Present Illness Initial comments: This patient is 23-year-old woman who presents with complaint of having several days of epigastric discomfort and also multiple episodes of vomiting and continuous nausea. The patient relates this to being . She states she found out at the end of September that she was using a home test, and that she has had more or less continuous nausea since that time. She states she had been able to keep down some food and fluids until the last several days when she is not keeping much of anything down. She describes the epigastric feeling as a discomfort, that gets worse a little with eating. It is moderate intensity. No relieving factors. No change in urination or bowel movements. She states she has vomiting which tries to eat most things and sometimes with drinking fluids as well. No vaginal discharge or bleeding. Patient is MD complaint: nausea, vomiting, abdominal pain -: days(s) Description of Vomiting: food contents Associated Abdominal Pain: Yes Location: epigastric Radiation: none Severity: moderate Quality: dull Consistency: intermittent Improves with: none Worsens with: vomiting - Related Data Home Medications Medication Instructions Recorded Confirmed Acetaminophen [Tylenol] 325 mg PO DAILY PRN 10/29/18 10/29/18 Xtr-Dlca-Quiin Acid 1 cap PO DAILY 10/29/18 10/29/18 [-U Capsule (formulary)] Allergies Allergy/AdvReac Type Severity Reaction Status Date / Time No Known Allergies Allergy Verified 10/29/18 22:24 Review of Systems ROS Statement: Those systems with pertinent positive or pertinent negative responses have been documented in the HPI. ROS Other: All systems not noted in ROS Statement are negative. Constitutional: Denies: fever, chills Respiratory: Denies: cough, dyspnea Cardiovascular: Denies: chest pain, palpitations, edema Gastrointestinal: Reports: as per HPI, abdominal pain, nausea, vomiting. Denies: diarrhea, constipation, hematemesis, melena, hematochezia Genitourinary: Denies: dysuria, frequency, hematuria, discharge, abnormal menses Musculoskeletal: Denies: back pain Skin: Denies: rash Neurological: Denies: headache, weakness, numbness Past Medical History Past Medical History: No Reported History History of Any Multi-Drug Resistant Organisms: None Reported Past Surgical History: No Surgical Hx Reported Past Anesthesia/Blood Transfusion Reactions: No Reported Reaction Past Psychological History: No Psychological Hx Reported Smoking Status: Never smoker Past Alcohol Use History: None Reported Past Drug Use History: None Reported - Past Family History Father History Unknown: Yes Mother Family Medical History: Fibromyalgia Additional Family Medical History / Comment(s): emphysema General Exam Limitations: no limitations General appearance: alert, in no apparent distress Head exam: Present: atraumatic, normocephalic Eye exam: Present: normal appearance. Absent: scleral icterus, conjunctival injection ENT exam: Present: mucous membranes dry Respiratory exam: Present: normal lung sounds bilaterally. Absent: respiratory distress, wheezes, rales, rhonchi, stridor Cardiovascular Exam: Present: regular rate, normal rhythm, normal heart sounds. Absent: systolic murmur, diastolic murmur, rubs, gallop GI/Abdominal exam: Present: soft, normal bowel sounds. Absent: distended, tenderness, guarding, rebound, rigid, mass, hernia Extremities exam: Present: normal inspection, normal capillary refill. Absent: pedal edema, calf tenderness Back exam: Present: normal inspection. Absent: CVA tenderness (R), CVA tenderness (L) Neurological exam: Present: alert Skin exam: Present: warm, dry, intact, normal color. Absent: rash Course Vital Signs 10/29/18 10/30/18 20:06 01:17 Temperature 98.7 F 98.4 F Pulse Rate 80 62 Respiratory 18 16 Rate Blood Pressure 124/81 118/57 O2 Sat by Pulse 100 98 Oximetry Medical Decision Making - Lab Data Result diagrams: 10/29/18 22:45 10/29/18 22:45 Lab Results 10/29/18 10/29/18 10/29/18 Range/Units 22:26 22:45 22:45 WBC 10.0 (3.8-10.6) k/uL RBC 4.82 (3.80-5.40) m/uL Hgb 14.0 (11.4-16.0) gm/dL Hct 41.5 (34.0-46.0) % MCV 86.1 (80.0-100.0) fL MCH 29.0 (25.0-35.0) pg MCHC 33.7 (31.0-37.0) g/dL RDW 12.5 (11.5-15.5) % Plt Count 293 (150-450) k/uL Neutrophils % 70 % Lymphocytes % 25 % Monocytes % 3 % Eosinophils % 1 % Basophils % 0 % Neutrophils # 7.0 (1.3-7.7) k/uL Lymphocytes # 2.5 (1.0-4.8) k/uL Monocytes # 0.3 (0-1.0) k/uL Eosinophils # 0.1 (0-0.7) k/uL Basophils # 0.0 (0-0.2) k/uL Sodium 137 (137-145) mmol/L Potassium 3.8 (3.5-5.1) mmol/L Chloride 103 (98-107) mmol/L Carbon Dioxide 22 (22-30) mmol/L Anion Gap 12 mmol/L BUN 4 L (7-17) mg/dL Creatinine 0.49 L (0.52-1.04) mg/dL Est GFR (CKD-EPI)AfAm >90 (>60 ml/min/1.73 sqM) Est GFR (CKD-EPI)NonAf >90 (>60 ml/min/1.73 sqM) Glucose 73 L (74-99) mg/dL Calcium 10.0 (8.4-10.2) mg/dL Total Bilirubin 1.4 H (0.2-1.3) mg/dL AST 23 (14-36) U/L ALT 21 (9-52) U/L Alkaline Phosphatase 43 (38-126) U/L Total Protein 7.3 (6.3-8.2) g/dL Albumin 4.5 (3.5-5.0) g/dL Amylase 54 (30-110) U/L Lipase 34 (23-300) U/L HCG, Quant 98741.1 mIU/mL Urine Color Yellow Urine Appearance Cloudy H (Clear) Urine pH 5.5 (5.0-8.0) Ur Specific [place] 1.025 (1.001-1.035) Urine Protein Trace H (Negative) Urine Glucose (UA) Negative (Negative) Urine Ketones 2+ H (Negative) Urine Blood Negative (Negative) Urine Nitrite Negative (Negative) Urine Bilirubin Negative (Negative) Urine Urobilinogen 2.0 (<2.0) mg/dL Ur Leukocyte Esterase Moderate H (Negative) Urine RBC 5 (0-5) /hpf Urine WBC 5 (0-5) /hpf Ur Squamous Epith Cells 14 H (0-4) /hpf Urine Mucus Many H (None) /hpf Disposition Clinical Impression: Hyperemesis Disposition: HOME SELF-CARE Condition: Good Instructions (If sedation given, give patient instructions): Hyperemesis Gravi darum (ED) Is patient prescribed a controlled substance at d/c from ED?: No Referrals: None,Stated [Primary Care Provider] - 1-2 days
[2018-10-29 22:59] LABS: Basophils % (A) 0 %; Eosinophils # (A) 0.1 k/uL (0-0.7); Eosinophils % (A) 1 %; HCT 41.5 % (34.0-46.0); Lymphocytes # (A) 2.5 k/uL (1.0-4.8); Lymphocytes % (A) 25 %; MCHC 33.7 g/dL (31.0-37.0); MCV 86.1 fL (80.0-100.0); Mean Platelet Volume 6.7; Monocytes # (A) 0.3 k/uL (0-1.0); Monocytes % (A) 3 %; Neutrophils % (A) 70 %; Platelet Count 293 k/uL (150-450); RBC 4.82 m/uL (3.80-5.40); RDW 12.5 % (11.5-15.5)
[2018-10-29 23:10] LABS: ALT 21 U/L (9-52); AST 23 U/L (14-36); African American GFR (CKD) >90 (>60 ml/min/1.73 sqM); Albumin 4.5 g/dL (3.5-5.0); Alkaline Phosphatase 43 U/L (38-126); Amylase 54 U/L (30-110); Anion Gap 12 mmol/L; Blood Urea Nitrogen 4 mg/dL (7-17); Carbon Dioxide 22 mmol/L (22-30); Chloride 103 mmol/L (98-107); Glucose 73 mg/dL (74-99); Lipase 34 U/L (23-300); Potassium 3.8 mmol/L (3.5-5.1); Sodium 137 mmol/L (137-145); Total Bilirubin 1.4 mg/dL (0.2-1.3); Total Protein 7.3 g/dL (6.3-8.2)
[2018-10-30 00:09] LABS: HCG,Quantitative Serum 53271.1 mIU/mL
[2018-10-30 00:09] LABS: Appearance,Urine Cloudy (Clear); Bilirubin,Urine Negative (Negative); Blood,Urine Negative (Negative); Color,Urine Yellow; Glucose,Urine (UA) Negative (Negative); Ketones,Urine 2+ (Negative); Leukocyte Esterase,Urine Moderate (Negative); Mucus,Urine Many /hpf; Nitrite,Urine Negative (Negative); PH, Urine 5.5 (5.0-8.0); Protein,Urine Trace (Negative); RBC,Urine 5 /hpf (0-5); Specific Gravity,Urine 1.025 (1.001-1.035); Squamous Epithelial Cell,Urine 14 /hpf (0-4); WBC,Urine 5 /hpf (0-5)
[2018-10-30] MEDS ORDERED: DEXTROSE 5%-0.45% NACL 1,000 ML IV ONE (01:05)
[2018-10-30 03:51] VITALS: BP 96/55; PULSE 67; RESP 18; TEMP 98
== END 2018-10-30 03:54 | disposition home or self-care (01) ==
LOC: EC 19:14
DX: O21.0 Mild hyperemesis gravidarum (principal); Z3A.11 11 weeks gestation of pregnancy
CPT/HCPCS: 36415; 80053; 82150; 83690; 85025; 81001; 84702; 99284; 96374; 96361 ×4; J2765

== ENCOUNTER 2019-04-15 13:15 | Emergency (ER) | payer BC, OTHER ==
[2019-04-15 14:03] VITALS: RESP 18; TEMP 97.7
[2019-04-15] MEDS ORDERED: SODIUM CHLORIDE 0.9% 1,000 ML IV STA ×2 (14:52)
--- NOTE | 2019-04-15 15:31 | ED ---
Dizziness HPI - General Chief Complaint: Dizziness Stated Complaint: Near syncope Time Seen by Provider: 04/15/19 14:43 Source: patient, family, RN notes reviewed, old records reviewed Mode of arrival: ambulatory - History of Present Illness Initial Comments: 24-year-old female presents today for evaluation for dizziness and lightheadedness. She reports that she's been having these symptoms off and on for the past week. She states it occurred salicylates afterward. She reports that she followed with her CUSTOMER ENGAGEMENT MANAGER yesterday, started return. She is 36 weeks . She was told at that time is likely orthostatic blood pressure changes. States that she's been trying to stay hydrated. Patient states that she has had no chest pain, headaches or shortness of breath. She denies any abdominal pain or vaginal bleeding or discharge. - Related Data Home Medications Medication Instructions Recorded Confirmed Acetaminophen [Tylenol] 325 mg PO DAILY PRN 10/29/18 10/29/18 Vhz-Pijg-Inhgl Acid 1 cap PO DAILY 10/29/18 10/29/18 [-U Capsule (formulary)] Allergies Allergy/AdvReac Type Severity Reaction Status Date / Time No Known Allergies Allergy Verified 10/29/18 22:24 Review of Systems ROS Statement: Those systems with pertinent positive or pertinent negative responses have been documented in the HPI. ROS Other: All systems not noted in ROS Statement are negative. Past Medical History Past Medical History: No Reported History History of Any Multi-Drug Resistant Organisms: None Reported Past Surgical History: No Surgical Hx Reported Past Anesthesia/Blood Transfusion Reactions: No Reported Reaction Past Psychological History: No Psychological Hx Reported Smoking Status: Never smoker Past Alcohol Use History: None Reported Past Drug Use History: None Reported - Past Family History Father History Unknown: Yes Mother Family Medical History: Fibromyalgia Additional Family Medical History / Comment(s): emphysema General Exam - General Exam Comments Initial Comments: 24-year-old female. Alert and oriented 3. No distress.General: Well appearing, well nourished, in no distress. Oriented x 3, normal mood and affect . Ambulating without difficulty. Skin: Good turgor, no rash, unusual bruising or prominent lesions Hair: Normal texture and distribution. HEENT: Head: Normocephalic, atraumatic, no visible or palpable masses, depressions, or scaring. Eyes: Visual acuity intact, conjunctiva clear, sclera non-icteric, EOM intact, PERRL. Ears: EACs clear, TMs translucent & cone of light visualized. hearing intact. Nose: No external lesions, mucosa non-inflamed, septum and turbinates normal Mouth: Mucous membranes moist, no mucosal lesions. Teeth/Gums: No obvious caries or periodontal disease. No gingival inflammation or significant resorption. Pharynx: Mucosa non-inflamed, no tonsillar hypertrophy or exudate Neck: Supple, without lesions, bruits, or adenopathy, thyroid non-enlarged and non-tender Heart: No cardiomegaly or thrills; regular rate and rhythm, no murmur or gallop Lungs: Clear to auscultation and percussion Abdomen: Bowel sounds normal, no tenderness, organomegaly, masses, or hernia Back: Spine normal without deformity or tenderness, no CVA tenderness Extremities: No amputations or deformities, cyanosis, edema or varicosities, peripheral pulses intact Musculoskeletal: Normal gait and station. No misalignment, asymmetry, crepitation, defects, tenderness, masses, effusions, decreased range of motion, instability, atrophy or abnormal strength or tone in the head, neck, spine, ribs, pelvis or extremities. Neurologic: CN 2-12 normal. Sensation to pain, touch, and proprioception normal. DTRs normal in upper and lower extremities. No pathologic reflexes. Course Vital Signs 04/15/19 13:58 Temperature 97.7 F Pulse Rate 90 Respiratory 18 Rate Blood Pressure 121/81 O2 Sat by Pulse 99 Oximetry Medical Decision Making - Medical Decision Making 24-year-old female. Alert and oriented 3. Since today for concerns for dizziness. Patient has had no symptoms related to the dizziness vomiting headache or chest pain. Patient given IV fluids labwork obtained. Orthostatic blood pressures did show some changes, standing her blood pressure was 130/64. We'll laying down on . Heart rate jumped from 73 beats were minute while laying down to 93 bpm standing up. Discusses likely related to dehydration as well as she did have a mildly low blood sugar at 63. Discussed she needs to eat frequent sex was given 1 emergency department. Able to tolerate eating and drinking well. I discussed Patient to follow-up with her primary care doctor and CUSTOMER ENGAGEMENT MANAGER. Discussed resting and will write the Patient note for work. - Lab Data Result diagrams: 04/15/19 15:35 04/15/19 15:35 Lab Results 04/15/19 04/15/19 04/15/19 Range/Units 15:35 15:35 15:35 WBC 11.6 H (3.8-10.6) k/uL RBC 4.77 (3.80-5.40) m/uL Hgb 14.3 (11.4-16.0) gm/dL Hct 43.2 (34.0-46.0) % MCV 90.7 (80.0-100.0) fL MCH 30.0 (25.0-35.0) pg MCHC 33.1 (31.0-37.0) g/dL RDW 12.4 (11.5-15.5) % Plt Count 273 (150-450) k/uL Neutrophils % 74 % Lymphocytes % 19 % Monocytes % 4 % Eosinophils % 1 % Basophils % 0 % Neutrophils # 8.7 H (1.3-7.7) k/uL Lymphocytes # 2.2 (1.0-4.8) k/uL Monocytes # 0.5 (0-1.0) k/uL Eosinophils # 0.1 (0-0.7) k/uL Basophils # 0.0 (0-0.2) k/uL PT 9.4 (9.0-12.0) sec INR 0.9 (<1.2) Sodium 136 L (137-145) mmol/L Potassium 4.2 (3.5-5.1) mmol/L Chloride 102 (98-107) mmol/L Carbon Dioxide 25 (22-30) mmol/L Anion Gap 9 mmol/L BUN 5 L (7-17) mg/dL Creatinine 0.48 L (0.52-1.04) mg/dL Est GFR (CKD-EPI)AfAm >90 (>60 ml/min/1.73 sqM) Est GFR (CKD-EPI)NonAf >90 (>60 ml/min/1.73 sqM) Glucose 68 L (74-99) mg/dL Calcium 10.0 (8.4-10.2) mg/dL Magnesium 1.5 L (1.6-2.3) mg/dL Total Bilirubin 1.1 (0.2-1.3) mg/dL AST 23 (14-36) U/L ALT 10 (4-34) U/L Alkaline Phosphatase 173 H (38-126) U/L Total Protein 7.3 (6.3-8.2) g/dL Albumin 4.0 (3.5-5.0) g/dL Urine Color Urine Appearance (Clear) Urine pH (5.0-8.0) Ur Specific [place] (1.001-1.035) Urine Protein (Negative) Urine Glucose (UA) (Negative) Urine Ketones (Negative) Urine Blood (Negative) Urine Nitrite (Negative) Urine Bilirubin (Negative) Urine Urobilinogen (<2.0) mg/dL Ur Leukocyte Esterase (Negative) Urine RBC (0-5) /hpf Urine WBC (0-5) /hpf Ur Squamous Epith Cells (0-4) /hpf Urine Bacteria (None) /hpf Urine Mucus (None) /hpf Influenza Type A RNA (Not Detectd) Influenza Type B (PCR) (Not Detectd) 04/15/19 04/15/19 Range/Units 15:35 15:35 WBC (3.8-10.6) k/uL RBC (3.80-5.40) m/uL Hgb (11.4-16.0) gm/dL Hct (34.0-46.0) % MCV (80.0-100.0) fL MCH (25.0-35.0) pg MCHC (31.0-37.0) g/dL RDW (11.5-15.5) % Plt Count (150-450) k/uL Neutrophils % % Lymphocytes % % Monocytes % % Eosinophils % % Basophils % % Neutrophils # (1.3-7.7) k/uL Lymphocytes # (1.0-4.8) k/uL Monocytes # (0-1.0) k/uL Eosinophils # (0-0.7) k/uL Basophils # (0-0.2) k/uL PT (9.0-12.0) sec INR (<1.2) Sodium (137-145) mmol/L Potassium (3.5-5.1) mmol/L Chloride (98-107) mmol/L Carbon Dioxide (22-30) mmol/L Anion Gap mmol/L BUN (7-17) mg/dL Creatinine (0.52-1.04) mg/dL Est GFR (CKD-EPI)AfAm (>60 ml/min/1.73 sqM) Est GFR (CKD-EPI)NonAf (>60 ml/min/1.73 sqM) Glucose (74-99) mg/dL Calcium (8.4-10.2) mg/dL Magnesium (1.6-2.3) mg/dL Total Bilirubin (0.2-1.3) mg/dL AST (14-36) U/L ALT (4-34) U/L Alkaline Phosphatase (38-126) U/L Total Protein (6.3-8.2) g/dL Albumin (3.5-5.0) g/dL Urine Color Yellow Urine Appearance Cloudy H (Clear) Urine pH 6.0 (5.0-8.0) Ur Specific [place] 1.017 (1.001-1.035) Urine Protein Trace H (Negative) Urine Glucose (UA) Negative (Negative) Urine Ketones Negative (Negative) Urine Blood Negative (Negative) Urine Nitrite Negative (Negative) Urine Bilirubin Negative (Negative) Urine Urobilinogen 2.0 (<2.0) mg/dL Ur Leukocyte Esterase Moderate H (Negative) Urine RBC 2 (0-5) /hpf Urine WBC 3 (0-5) /hpf Ur Squamous Epith Cells 67 H (0-4) /hpf Urine Bacteria Occasional H (None) /hpf Urine Mucus Few H (None) /hpf Influenza Type A RNA Not Detected (Not Detectd) Influenza Type B (PCR) Not Detected (Not Detectd) 04/15/19 17:17 EKG performed at 1536 shows normal sinus rhythm and voltage for LVH may be a normal variant. T wave at O'Sri considering for ischemia. Ventricular rate 93 bpm. Intervals 112 ms. QRS ration 70 ms. QT QTc 350/420 ms. - Radiology Data Radiology results: report reviewed Disposition Clinical Impression: Orthostatic dizziness Disposition: HOME SELF-CARE Condition: Good Instructions (If sedation given, give patient instructions): Dizziness (ED) Additional Instructions: Patient advised to rest, remain hydrated. Drink plenty of fluids any frequent snacks. Follow-up with CUSTOMER ENGAGEMENT MANAGER and PCP. Is patient prescribed a controlled substance at d/c from ED?: No Referrals: None,Stated [Primary Care Provider] - 1-2 days Time of Disposition: 17:15
[2019-04-15 16:00] LABS: Basophils % (A) 0 %; Eosinophils # (A) 0.1 k/uL (0-0.7); Eosinophils % (A) 1 %; HCT 43.2 % (34.0-46.0); HGB 14.3 gm/dL (11.4-16.0); Lymphocytes # (A) 2.2 k/uL (1.0-4.8); Lymphocytes % (A) 19 %; MCHC 33.1 g/dL (31.0-37.0); MCV 90.7 fL (80.0-100.0); Mean Platelet Volume 8.7; Monocytes # (A) 0.5 k/uL (0-1.0); Monocytes % (A) 4 %; Neutrophils # (A) 8.7 k/uL (1.3-7.7); Neutrophils % (A) 74 %; Platelet Count 273 k/uL (150-450); RBC 4.77 m/uL (3.80-5.40); RDW 12.4 % (11.5-15.5); WBC 11.6 k/uL (3.8-10.6)
[2019-04-15 16:09] LABS: ALT 10 U/L (4-34); AST 23 U/L (14-36); African American GFR (CKD) >90 (>60 ml/min/1.73 sqM); Alkaline Phosphatase 173 U/L (38-126); Anion Gap 9 mmol/L; Blood Urea Nitrogen 5 mg/dL (7-17); Carbon Dioxide 25 mmol/L (22-30); Chloride 102 mmol/L (98-107); Glucose 68 mg/dL (74-99); Magnesium 1.5 mg/dL (1.6-2.3); Non-African American GFR(CKD) >90 (>60 ml/min/1.73 sqM); Potassium 4.2 mmol/L (3.5-5.1); Sodium 136 mmol/L (137-145); Total Bilirubin 1.1 mg/dL (0.2-1.3); Total Protein 7.3 g/dL (6.3-8.2)
[2019-04-15 16:10] LABS: Appearance,Urine Cloudy (Clear); Bacteria,Urine Occasional /hpf; Bilirubin,Urine Negative (Negative); Blood,Urine Negative (Negative); Color,Urine Yellow; Glucose,Urine (UA) Negative (Negative); Ketones,Urine Negative (Negative); Leukocyte Esterase,Urine Moderate (Negative); Mucus,Urine Few /hpf; Nitrite,Urine Negative (Negative); Protein,Urine Trace (Negative); RBC,Urine 2 /hpf (0-5); Specific Gravity,Urine 1.017 (1.001-1.035); Squamous Epithelial Cell,Urine 67 /hpf (0-4); WBC,Urine 3 /hpf (0-5)
[2019-04-15 16:16] LABS: INR 0.9 (<1.2); Prothrombin Time 9.4 sec (9.0-12.0)
--- NOTE | 2019-04-15 16:48 | US ---
EXAMINATION TYPE: US OB limited DATE OF EXAM: 04/15/2019 COMPARISON: NONE CLINICAL HISTORY: heart tones. Patient stated in EC for nausea, near syncope EXAM PERFORMED: Transabdominal (TA) GESTATIONAL AGE / DATING Physician Established: (35 weeks/5 days) EDC: 05/15/19 No growth performed on today?s study per ordering physician SURVEY PLACENTA: Anterior PREVIA: No Previa CERVICAL LENGTH (transabdominal: norm > 3.0cm): 3.05 cm PRESENTATION: cephalic LIE: Longitudinal HEART RATE: 132 bpm RHYTHM: Normal IMPRESSION: 1. Single intrauterine gestation in a cephalic presentation with cardiac activity measuring 132 bpm.
[2019-04-15 17:55] VITALS: BP 103/74; PULSE 76
== END 2019-04-15 18:01 | disposition home or self-care (01) ==
LOC: EC 13:15
DX: O26.893 Other specified pregnancy related conditions, third trimester (principal); R42 Dizziness and giddiness; Z3A.36 36 weeks gestation of pregnancy
CPT/HCPCS: 36415; 76815; 80053; 81001; 83735; 85025; 85610; 87502; 93005; 96360; 96361; 99285

== ENCOUNTER 2019-04-22 10:17 | Outpatient (CLI) | payer BC, OTHER ==
[2019-04-22] MEDS ORDERED: ONDANSETRON 4 MG/2 ML VIAL IVP STA (10:35)
[2019-04-22] MEDS ORDERED: LACTATED RINGERS 1,000 ML IV SCH (10:45)
[2019-04-22 11:44] LABS: Appearance,Urine Cloudy (Clear); Bacteria,Urine Rare /hpf; Bilirubin,Urine 1+ (Negative); Blood,Urine Negative (Negative); Color,Urine Orange; Glucose,Urine (UA) Trace (Negative); Ketones,Urine 4+ (Negative); Leukocyte Esterase,Urine Small (Negative); Mucus,Urine Many /hpf; Nitrite,Urine Negative (Negative); PH, Urine 5.5 (5.0-8.0); Protein,Urine 1+ (Negative); RBC,Urine 2 /hpf (0-5); Specific Gravity,Urine 1.036 (1.001-1.035); Squamous Epithelial Cell,Urine 29 /hpf (0-4); WBC,Urine 3 /hpf (0-5)
[2019-04-22 13:43] VITALS: BP 126/77; PULSE 100; RESP 16; TEMP 98.1
--- NOTE | 2019-04-25 09:59 | P.MSEPDOC ---
Presenting Problems - Arrival Data Date of Arrival on Unit: 04/22/19 Time of Arrival on Unit: 10:10 Mode of Transport: Ambulatory - Complaint OB-Reason for Admission/Chief Complaint: Acute Nausea/Vomiting Medical History - Information : 1 Para: 0 Term: 0 : 0 Abortions: Spontaneous or Elective: 0 Number of Living Children: 0 - Gestational Age Gestational Age by ANNIE (wks/days): 36 Weeks and 5 Days Review of Systems - Review of Systems Constitutional: No problems Breast: No problems ENT: No problems Cardiovascular: No problems Respiratory: No problems Gastrointestinal: Diarrhea Genitourinary: No problems Musculoskeletal: No problems Neurological: No problems Skin: No problems Vital Signs - Temperature Temperature: 98.1 F Temperature Source: Oral - Pulse Right Brachial Pulse Rate: 100 Pulse Assessment Method: Automatic Cuff - Respirations Respiratory Rate: 16 Oxygen Delivery Method: Room Air - Blood Pressure Right Arm Blood Pressure: 126/77 Blood Pressure Mean: 93 Blood Pressure Source: Automatic Cuff Medical Screen Scoring (Pre) - Cervical Exam Dilation: Exam Deferred Effacement: Exam Deferred Membranes: Intact - Uterine Contractions Frequency: N/A Duration: N/A Intensity: N/A - Maternal Vital Signs Maternal Temperature: N/A Maternal Blood Pressure: N/A Signs of Preeclampsia: N/A Maternal Respirations: N/A - Maternal Trauma Maternal Trauma: N/A - Assessment - Baby A Baseline FHR: 145 Heart Rate - NICHD Category: Category I (Normal) = 0 NST: Reactive Position: N/A Station: N/A - Total Score - Baby A Total Score - Baby A: 0 - Total Score - Baby B Total Score - Baby B: 0 - Total Score - Baby C Total Score - Baby C: 0 - Level of Risk - Baby A Level of Risk - Baby A: Low (0-5) - Level of Risk - Baby B Level of Risk - Baby B: Low (0-5) - Level of Risk - Baby C Level of Risk - Baby C: Low (0-5) Physician Notification (Pre) - Physician Notified Physician Notified Date: 04/22/19 Physician Notified Time: 11:50 New Order Received: Yes - Notification Comment Comment: d/c home Disposition - Disposition OB Disposition: Discharge to home Discharge Date: 04/22/19 Discharge Time: 11:55 I agree with the RN Medical Screening Exam: Yes Risk & Benefit of care provided described in d/c instruction: Yes Diagnosis: VOMITING OF , UNSPECIFIED
== END 2019-04-22 11:55 | disposition home or self-care (01) ==
LOC: FBPOP 10:17
PROVIDERS: ATTEND Obstetrics & Gynecology Obstetrics
DX: O21.2 Late vomiting of pregnancy (principal); Z3A.36 36 weeks gestation of pregnancy
CPT/HCPCS: 59025; 99214; 96360; 81001; J2405

== ENCOUNTER 2019-05-17 12:09 | Inpatient (IN) | payer BC, OTHER ==
[2019-05-17] MEDS ORDERED: METHYLERGONOVINE 0.2 MG/ML 1 ML AMP IM PRN (13:10)
[2019-05-17] MEDS ORDERED: CARBOPROST TROMETHAMINE 250 MCG/ML 1 ML AMP IM PRN (13:10)
[2019-05-17] MEDS ORDERED: LIDOCAINE 0.5% (PF) 5 MG/ML (50 ML SDV) SQ PRN (13:10)
[2019-05-17] MEDS ORDERED: TERBUTALINE 1 MG/ML VIAL SQ PRN (13:10)
[2019-05-17] MEDS ORDERED: OXYTOCIN 10 UNIT/ML 1 ML VIAL IM PRN (13:10)
--- NOTE | 2019-05-17 13:10 | P.HPOB ---
History of Present Illness H&P Date: 05/17/19 Chief Complaint: IUP at 40 and 2/sevenths weeks, labor This is a pleasant 24-year-old 1 para 0 at 40-2/7 weeks that presented to the office today for routine visit. Patient stated she had been dinora but they were not regular at this time. She denied vaginal bleeding or loss of fluid. She notes good movement. She has been receiving routine care since the first trimester which has been essentially uncomplicated. NST was performed and found to be nonreactive, reassuring with moderate variability. On bloodwork should a blood type of O+, rubella status immune, RPR is nonreactive, HIV negative, group beta strep was negative in addition. Review of Systems Constitutional: Denies chills, Denies fatigue, Denies fever Ears, nose, mouth and throat: Denies headache Cardiovascular: Reports leg edema Gastrointestinal: Denies constipation, Denies diarrhea, Denies nausea, Denies vomiting Genitourinary: Reports Past Medical History Past Medical History: No Reported History History of Any Multi-Drug Resistant Organisms: None Reported Past Surgical History: No Surgical Hx Reported Past Anesthesia/Blood Transfusion Reactions: No Reported Reaction Smoking Status: Never smoker - Past Family History Father History Unknown: Yes Mother Family Medical History: Fibromyalgia Additional Family Medical History / Comment(s): emphysema Medications and Allergies Home Medications Medication Instructions Recorded Confirmed Type Acetaminophen [Tylenol] 325 mg PO DAILY PRN 10/29/18 10/29/18 History Tty-Jqjw-Srwbb Acid 1 cap PO DAILY 10/29/18 10/29/18 History [-U Capsule (formulary)] Allergies Allergy/AdvReac Type Severity Reaction Status Date / Time No Known Allergies Allergy Verified 04/22/19 10:34 Exam Osteopathic Statement: *. No significant issues noted on an osteopathic structural exam other than those noted in the History and Physical/Consult. Targeted physical exam is performed and the state in general this is a well nourished well developed female in no acute distress, heart has regular rate and rhythm, breathing is noted to be nonlabored, abdomen is gravid and appropriate for gestational age, on cervical exam she is 3-4/70/-2 amniotomy is performed and clear fluid was obtained. Assessment and Plan (1) Term Current Visit: Yes Status: Acute Code(s): Z34.90 - ENCNTR FOR SUPRVSN OF NORMAL , UNSP, UNSP TRIMESTER SNOMED Code(s): 20218535 (2) Prolonged latent phase of labor Current Visit: Yes Status: Acute Code(s): O63.0 - PROLONGED FIRST STAGE (OF LABOR) SNOMED Code(s): 650074793 Plan: Patient is admitted to labor and delivery for augmentation of labor. Pitocin augmentation will be begun per hospital protocol. Patient is counseled on her options for analgesia, Stadol versus epidural. If she decides she would like an epidural and cervical change is noted anesthesia will be notified.
[2019-05-17] MEDS ORDERED: OXYTOCIN 30 UNITS/500 ML NS 30 UNIT in SALINE 1 500ML.BAG IV SCH (13:15)
[2019-05-17] MEDS: LACTATED RINGERS 1,000 ML IV SCH ×3 (13:42→20:15)
[2019-05-17 13:44] LABS: Basophils # (A) 0.1 k/uL (0-0.2); Basophils % (A) 1 %; Eosinophils # (A) 0.1 k/uL (0-0.7); Eosinophils % (A) 1 %; HCT 46.7 % (34.0-46.0); HGB 15.2 gm/dL (11.4-16.0); Lymphocytes % (A) 18 %; MCH 29.9 pg (25.0-35.0); MCHC 32.5 g/dL (31.0-37.0); MCV 91.8 fL (80.0-100.0); Mean Platelet Volume 8.4; Monocytes # (A) 0.4 k/uL (0-1.0); Monocytes % (A) 4 %; Neutrophils # (A) 8.4 k/uL (1.3-7.7); Neutrophils % (A) 76 %; Platelet Count 317 k/uL (150-450); RBC 5.09 m/uL (3.80-5.40)
[2019-05-17] MEDS ORDERED: SODIUM CHLORIDE 0.9% 100 ML BAG ONE (17:10)
[2019-05-17] MEDS ORDERED: ROPIVACAINE 5MG/ML 20ML VIAL ONE (17:10)
[2019-05-17] MEDS ORDERED: fentaNYL (PF) 50 MCG/ML 5 ML AMP ONE (17:10)
[2019-05-17] MEDS ORDERED: LANOLIN CREAM 5 GM TUBE TOPICAL PRN (21:55)
[2019-05-17] MEDS ORDERED: ZOLPIDEM 5 MG TAB PO PRN (21:55)
[2019-05-17] MEDS ORDERED: BENZOCAINE/MENTHOL SPRAY 1 GM/SPRAY AEROSOL TOPICAL PRN (21:55)
[2019-05-17] MEDS ORDERED: ACETAMINOPHEN TAB 325 MG TAB PO PRN (21:55)
[2019-05-17] MEDS ORDERED: WITCH HAZEL 1 EACH MED..PAD TOPICAL PRN (21:55)
[2019-05-17] MEDS ORDERED: HYDROcodone/APAP 5-325MG 1 EACH TAB PO PRN (21:55)
[2019-05-17] MEDS ORDERED: diphenhydrAMINE 50 MG/ML 1 ML VIAL IVP PRN ×2 (21:55)
[2019-05-17] MEDS ORDERED: diphenhydrAMINE 25 MG CAP PO PRN (21:55)
[2019-05-17] MEDS ORDERED: SIMETHICONE 80 MG CHEWABLE PO PRN (21:55)
[2019-05-17] MEDS ORDERED: HYDROCORTISONE 2.5% RECTAL CREAM 30 GM TUBE RECTAL PRN (21:55)
[2019-05-17] MEDS ORDERED: diphenhydrAMINE 50 MG CAP PO PRN (21:55)
[2019-05-17] MEDS ORDERED: OXYTOCIN 20 UNITS/1000 ML NS 1,000 ML IV SCH (22:00)
--- NOTE | 2019-05-17 22:00 | P.PROBDLV ---
Vaginal Delivery Note - . Vaginal Delivery Note: This is a 24-year-old 1 para 0 at 40-2/7 weeks that was sent from the office when she was noted to be 4 cm and having irregular contractions. Patient in addition had a nonreactive NST moderate variability no D cells but not deemed reactive. Patient was admitted Pitocin augmentation of labor was begun. Amniotomy was performed and clear fluid was obtained. Patient became uncomfortable and requested epidural placement. Epidural was placed by the anesthesia without difficulty. Patient progressed to complete began pushing and had a normal spontaneous vaginal delivery of a viable male with a loose nuchal cord that was delivered through at 2137, weight of 8 lbs. 4 oz. Apgars of 8 and 8 at one and 5 minutes respectively. After two-minute delayed the umbilical cord was doubly clamped and cut and the placenta was delivered spontaneously intact with three-vessel cord being noted. Inspection the patient's vaginal vault a secondary midline laceration was noted this was repaired in usual fashion with 3-0 Rapide. Afterwards hemostasis was appreciated. Dissection of the patient's vaginal vault revealed no other lacerations and the repaired laceration was noted to be hemostatic once again. The uterus is noted be firm and below the umbilicus. estimated blood loss 300 mL. Patient and infant tolerated delivery well and are resting comfortably.
[2019-05-17] MEDS: IBUPROFEN 600 MG TAB PO PRN (23:42)
[2019-05-18 07:02] LABS: Basophils % (A) 0 %; Eosinophils % (A) 0 %; HCT 37.2 % (34.0-46.0); HGB 12.4 gm/dL (11.4-16.0); Lymphocytes # (A) 2.5 k/uL (1.0-4.8); Lymphocytes % (A) 17 %; MCH 30.5 pg (25.0-35.0); MCHC 33.4 g/dL (31.0-37.0); MCV 91.1 fL (80.0-100.0); Mean Platelet Volume 8.5; Monocytes # (A) 0.7 k/uL (0-1.0); Monocytes % (A) 5 %; Neutrophils # (A) 11.1 k/uL (1.3-7.7); Neutrophils % (A) 76 %; Platelet Count 256 k/uL (150-450); RBC 4.08 m/uL (3.80-5.40); RDW 12.9 % (11.5-15.5); WBC 14.6 k/uL (3.8-10.6)
--- NOTE | 2019-05-18 07:07 | P.PNOBGVD ---
Subjective - Subjective Principal diagnosis: PPD 1 Interval history: Patient is doing well . She is ambulating and voiding without difficulty. She is bottle feeding. She states her lochia is moderate. She denies concerns. Patient reports: Reports appetite normal, Reports voiding normally, Reports pain well controlled, Reports ambulating normally [place]: doing well, bottle feeding Objective - Latest Vital Signs Latest vital signs: Vital Signs Temp Pulse Resp BP Pulse Ox 05/18/19 03:35 98.6 F 81 16 91/54 98 05/17/19 23:56 97.5 F L 104 H 16 132/57 05/17/19 23:26 97.5 F L 100 16 129/64 05/17/19 22:56 97.6 F 100 16 129/70 05/17/19 22:41 97.6 F 111 H 16 123/62 05/17/19 22:26 98.3 F 100 16 125/63 05/17/19 22:11 97.1 F L 97 16 131/72 05/17/19 21:56 97.7 F 111 H 16 148/68 05/17/19 13:06 97.9 F 90 16 132/75 100 Intake and Output 05/17/19 05/18/19 05/18/19 22:59 06:59 14:59 Other: # Voids 500 - Exam Extremities: Present: normal, edema Abdomen: Present: normal appearance, soft Uterus: Present: normal, firm - Labs Labs: Abnormal Lab Results - Last 24 Hours (Table) 05/17/19 05/18/19 Range/Units 13:10 06:20 WBC 11.0 H 14.6 H (3.8-10.6) k/uL Hct 46.7 H (34.0-46.0) % Neutrophils # 8.4 H 11.1 H (1.3-7.7) k/uL Assessment and Plan (1) Term Current Visit: Yes Status: Acute Code(s): Z34.90 - ENCNTR FOR SUPRVSN OF NORMAL , UNSP, UNSP TRIMESTER SNOMED Code(s): 51981719 (2) Prolonged latent phase of labor Current Visit: Yes Status: Acute Code(s): O63.0 - PROLONGED FIRST STAGE (OF LABOR) SNOMED Code(s): 153076660 (3) Status post vaginal delivery Current Visit: Yes Status: Acute Code(s): [id number] - SNOMED Code(s): 077177329 Plan: We'll continue routine care and anticipate discharge home tomorrow.
[2019-05-18] MEDS: IBUPROFEN 600 MG TAB PO PRN (08:22)
[2019-05-18] MEDS: SENNOSIDES-DOCUSATE SODIUM 1 EACH TAB PO SCH ×2 (08:22→08:35)
[2019-05-18] MEDS: PRENATAL VIT-IRON-FOLIC ACID 1 EACH CAP PO SCH (08:34)
[2019-05-19 02:22] VITALS: RESP 16
[2019-05-19] MEDS: PRENATAL VIT-IRON-FOLIC ACID 1 EACH CAP PO SCH (07:59)
[2019-05-19] MEDS: SENNOSIDES-DOCUSATE SODIUM 1 EACH TAB PO SCH (07:59)
--- NOTE | 2019-05-19 08:44 | P.DS ---
Providers Date of admission: 05/17/19 12:09 Expected date of discharge: 05/19/19 Attending physician: Antonette Arora Primary care physician: Stated None - Discharge Diagnosis(es) (1) Term Current Visit: Yes Status: Acute (2) Prolonged latent phase of labor Current Visit: Yes Status: Acute (3) Status post vaginal delivery Current Visit: Yes Status: Acute Hospital Course: This pleasant 24-year-old 1 para 0 at 40-2/7 weeks presented to labor and delivery for augmentation of labor on 05/17/2019. Patient presented for routine visit noting contractions. Patient was noted to be 4 cm dilated. Patient's care has been uncomplicated. For complete details on this patient please see the dictated history and physical. Patient was admitted to labor and delivery Pitocin augmentation of labor was begun. Amniotomy was performed in addition and clear fluid was obtained. Patient progressed through labor eventually becoming uncomfortable and requesting epidural placement. Epidural was placed without difficulty by the anesthesia department. Patient progressed to complete began pushing and had a normal spontaneous vaginal delivery of a viable female infant at 2137, weight of 8 lbs. 4 oz. with Apgars of 8 and 8 at one and 5 minutes respectively. Patient's course has been uneventful. On this day #2 she is ambulating and voiding without difficulty. She is breast-feeding without difficulty. She is tolerating a regular diet without nausea or vomiting. She does wish discharge home. Patient Condition at Discharge: Good Plan - Discharge Summary New Discharge Prescriptions: No Action Acetaminophen [Tylenol] 325 mg PO DAILY PRN PRN Reason: Headache Pcw-Elem-Ycmis Acid [-U Capsule (formulary)] 1 cap PO DAILY Discharge Medication List Acetaminophen [Tylenol] 325 mg PO DAILY PRN 10/29/18 [History] Npt-Zdjb-Tpovo Acid [-U Capsule (formulary)] 1 cap PO DAILY 10/29/18 [History] Follow up Appointment(s)/Referral(s): Antonette Arora DO [Doctor of Osteopathic Medicine] - 4 Weeks Patient Instructions/Handouts: Vaginal Delivery (DC), Vaginal Delivery (GEN) Discharge Disposition: HOME SELF-CARE
[2019-05-19 09:06] VITALS: BP 115/69; PULSE 83; TEMP 97.6
== END 2019-05-19 11:50 | disposition home or self-care (01) | DRG 807 ==
LOC: 4FBP 12:09
PROVIDERS: ADMIT Obstetrics & Gynecology Obstetrics; ATTEND Obstetrics & Gynecology Obstetrics
PROC: 10E0XZZ Delivery of Products of Conception, External Approach (ICD-10-PCS; principal; 2019-05-17)
PROC: 0KQM0ZZ Repair Perineum Muscle, Open Approach (ICD-10-PCS; 2019-05-17)
PROC: 10907ZC Drainage of Amniotic Fluid, Therapeutic from Products of Conception, Via Natural or Artificial Opening (ICD-10-PCS; 2019-05-17)
PROC: 3E0R3BZ Introduction of Anesthetic Agent into Spinal Canal, Percutaneous Approach (ICD-10-PCS; 2019-05-17)
DX: O63.0 Prolonged first stage (of labor) (principal); Z37.0 Single live birth; O69.81X0 Labor and delivery complicated by cord around neck, without compression, not applicable or unspecified; O70.1 Second degree perineal laceration during delivery; Z3A.40 40 weeks gestation of pregnancy; Z79.899 Other long term (current) drug therapy; Z82.69 Family history of other diseases of the musculoskeletal system and connective tissue; Z82.5 Family history of asthma and other chronic lower respiratory diseases
CPT/HCPCS: 85025; 86850; 86900; 86901

== ENCOUNTER 2019-08-15 04:06 | Observation (INO) | payer BC ==
[2019-08-15] MEDS ORDERED: HYDROmorphone 1 MG/ML 1 ML SYRINGE IVP STA ×2 (04:31→06:51)
[2019-08-15] MEDS ORDERED: SODIUM CHLORIDE 0.9% 500 ML 500 ML IV STA (04:31)
--- NOTE | 2019-08-15 04:33 | ED ---
Chest Pain HPI - General Source: patient Mode of arrival: ambulatory Limitations: no limitations - History of Present Illness MD Complaint: chest pain -: month(s) Pain Location: right chest Pain Radiation: back Severity: severe Quality: sharp Consistency: intermittent Improves With: movement Worsens With: nothing Treatments Prior to Arrival: none - Related Data On Oral Contraceptives: No <Alex Clements - Last Filed: 08/15/19 07:28> <Aureliano Hayden - Last Filed: 08/15/19 08:57> - General Chief Complaint: Chest Pain Stated Complaint: flank pain Time Seen by Provider: 08/15/19 04:23 - History of Present Illness Initial Comments: This patient is a 24-year-old woman who presents for right-sided pain at the costal margin. She states that it has been present going back almost couple of months intermittently now. She states that it will come on once every few days and last a few hours. The pain radiates to the back. It is a sharp sensation, tonight it is severe. She has not noted worsening or relieving factors, no coming symptoms. (Alex Clements) - Related Data Home Medications Medication Instructions Recorded Confirmed Acetaminophen [Tylenol] 325 mg PO Q6H PRN 10/29/18 08/15/19 Allergies Allergy/AdvReac Type Severity Reaction Status Date / Time No Known Allergies Allergy Verified 08/15/19 08:25 Review of Systems ROS Other: All systems not noted in ROS Statement are negative. Constitutional: Denies: fever Respiratory: Denies: cough, dyspnea Cardiovascular: Denies: chest pain, palpitations Gastrointestinal: Denies: abdominal pain, nausea, vomiting, diarrhea, constipation Genitourinary: Denies: dysuria, hematuria Musculoskeletal: Denies: back pain Skin: Denies: rash Neurological: Denies: headache <Alex Clements - Last Filed: 08/15/19 07:28> ROS Other: All systems not noted in ROS Statement are negative. <Aureliano Hayden - Last Filed: 08/15/19 08:57> ROS Statement: Those systems with pertinent positive or pertinent negative responses have been documented in the HPI. EKG Findings - EKG Results: EKG: interpreted by ERMD, sinus rhythm (Rate 77 bpm), normal axis, normal QRS, normal ST/T, no acute changes - Blocks, [place], Hypertrophy, ST Abn: Chamber hypertrophy or enlargement: only voltage criteria for left ventricular hypertrophy <Alex Clements - Last Filed: 08/15/19 07:28> Past Medical History Past Medical History: No Reported History History of Any Multi-Drug Resistant Organisms: None Reported Past Surgical History: No Surgical Hx Reported Past Anesthesia/Blood Transfusion Reactions: No Reported Reaction Past Psychological History: No Psychological Hx Reported Smoking Status: Never smoker Past Alcohol Use History: None Reported Past Drug Use History: None Reported - Past Family History Father History Unknown: Yes Mother Family Medical History: Fibromyalgia Additional Family Medical History / Comment(s): emphysema <Alex Clements - Last Filed: 08/15/19 07:28> General Exam Limitations: no limitations General appearance: alert, in no apparent distress Head exam: Present: atraumatic, normocephalic Eye exam: Present: normal appearance. Absent: scleral icterus, conjunctival injection Respiratory exam: Present: normal lung sounds bilaterally. Absent: respiratory distress, wheezes, rales, rhonchi, stridor Cardiovascular Exam: Present: regular rate, normal rhythm, normal heart sounds. Absent: systolic murmur, diastolic murmur, rubs, gallop GI/Abdominal exam: Present: soft, tenderness (Right upper quadrant), normal bowel sounds. Absent: distended, guarding, rebound, rigid, mass, pulsatile mass, hernia Extremities exam: Present: normal inspection, normal capillary refill. Absent: pedal edema, calf tenderness Back exam: Present: normal inspection. Absent: CVA tenderness (R), CVA tenderness (L) Neurological exam: Present: alert Skin exam: Present: warm, dry, intact, normal color. Absent: rash <Alex Clements - Last Filed: 08/15/19 07:28> Course Vital Signs 08/15/19 08/15/19 08/15/19 04:11 04:22 05:16 Temperature 97.3 F L Pulse Rate 92 66 Respiratory 18 16 16 Rate Blood Pressure 134/70 128/75 O2 Sat by Pulse 100 Oximetry 08/15/19 08/15/19 08/15/19 06:00 06:42 07:26 Temperature Pulse Rate 83 84 95 Respiratory 16 16 16 Rate Blood Pressure 124/75 124/74 128/56 O2 Sat by Pulse 100 98 98 Oximetry Chest Pain MDM <Aureliano Hayden - Last Filed: 08/15/19 08:57> - [facility] Patient still has a right upper quadrant pain and a positive Salazar sign on examination. CAT scan was negative for evidence of PE over the ultrasound did show evidence of cholelithiasis with common bile duct was within normal limits as was the gallbladder wall. I did discuss the case the patient and with Dr. Coats the patient will be admitted for evaluation of cholelithiasis and biliary colic. Early cholecystitis is suspected (Aureliano Hayden) Disposition <Alex Clements - Last Filed: 08/15/19 07:28> <Aureliano Hayden - Last Filed: 08/15/19 08:57> Clinical Impression: Cholelithiasis, Biliary colic symptom, Cholecystitis, acute with cholelithiasis Disposition: ADMITTED IP TO THIS [facility] Condition: Fair Referrals: None,Stated [Primary Care Provider] - 1-2 days
[2019-08-15 04:39] LABS: Basophils % (A) 0 %; Eosinophils # (A) 0.2 k/uL (0-0.7); Eosinophils % (A) 2 %; HCT 44.4 % (34.0-46.0); HGB 15.1 gm/dL (11.4-16.0); Lymphocytes # (A) 2.5 k/uL (1.0-4.8); Lymphocytes % (A) 31 %; Mean Platelet Volume 7.6; Monocytes # (A) 0.4 k/uL (0-1.0); Monocytes % (A) 5 %; Neutrophils # (A) 4.8 k/uL (1.3-7.7); Neutrophils % (A) 59 %; Platelet Count 328 k/uL (150-450); RBC 5.04 m/uL (3.80-5.40); WBC 8.1 k/uL (3.8-10.6)
[2019-08-15 04:48] LABS: Appearance,Urine Clear (Clear); Bilirubin,Urine Negative (Negative); Blood,Urine Negative (Negative); Color,Urine Yellow; Glucose,Urine (UA) Negative (Negative); Ketones,Urine Negative (Negative); Leukocyte Esterase,Urine Negative (Negative); Nitrite,Urine Negative (Negative); PH, Urine 5.5 (5.0-8.0); Protein,Urine Negative (Negative); Specific Gravity,Urine 1.026 (1.001-1.035); Urobilinogen,Urine <2.0 mg/dL (<2.0)
[2019-08-15 04:55] LABS: ALT 30 U/L (4-34); AST 27 U/L (14-36); African American GFR (CKD) >90 (>60 ml/min/1.73 sqM); Albumin 4.3 g/dL (3.5-5.0); Alkaline Phosphatase 93 U/L (38-126); Amylase 40 U/L (30-110); Anion Gap 9 mmol/L; Blood Urea Nitrogen 17 mg/dL (7-17); Calcium 9.7 mg/dL (8.4-10.2); Carbon Dioxide 23 mmol/L (22-30); Chloride 106 mmol/L (98-107); Glucose 103 mg/dL (74-99); Non-African American GFR(CKD) >90 (>60 ml/min/1.73 sqM); Potassium 4.2 mmol/L (3.5-5.1); Sodium 138 mmol/L (137-145); Total Protein 7.5 g/dL (6.3-8.2)
--- NOTE | 2019-08-15 07:20 | CT ---
EXAM: CT Angiography Chest With Intravenous Contrast CLINICAL HISTORY: ITS.REASON CT Reason: Pleuritic pain/elevated d-dimer TECHNIQUE: Axial computed tomographic angiography images of the chest with intravenous contrast. CTDI is 9 mGy and DLP is 350.4 mGy-cm. This CT exam was performed using one or more of the following dose reduction techniques: automated exposure control, adjustment of the mA and/or kV according to patient size, and/or use of iterative reconstruction technique. MIP reconstructed images were created and reviewed. COMPARISON: CT abdomen pelvis from 05/09/17 FINDINGS: Pulmonary arteries: Breathing motion artifact limits evaluation of the peripheral arteries. No pulmonary embolism visualized. Aorta: No acute findings. No thoracic aortic aneurysm. Lungs: Minimal dependent atelectasis, otherwise lungs clear. No mass. Pleural space: Unremarkable. No significant effusion. No pneumothorax. Heart: Unremarkable. No cardiomegaly. No significant pericardial effusion. No evidence of RV dysfunction. Bones/joints: No acute fracture. No dislocation. Soft tissues: Unremarkable. Lymph nodes: Unremarkable. No enlarged lymph nodes. Spleen: Mild splenomegaly, stable IMPRESSION: Breathing motion artifact limits evaluation of the peripheral arteries. No pulmonary embolism visualized.
--- NOTE | 2019-08-15 08:35 | US ---
EXAMINATION TYPE: US abdomen limited DATE OF EXAM: 08/15/2019 COMPARISON: CT 2018, US 2016 CLINICAL HISTORY: attention RUQ. Intermittent right flank and back pain x couple weeks, gotten worse recently EXAM MEASUREMENTS: Liver Length: 14.6 cm Gallbladder Wall: 0.2 cm CBD: 0.3 cm Right Kidney: 10.3 x 4.8 x 4.5 cm Pancreas: visualized portions wnl, limited by overlying midline bowel gas Liver: wnl Gallbladder: cholelithiasis, wall measures wnl Evidence for sonographic Salazar's sign: yes CBD: visualized portions wnl, limited by overlying bowel gas Right Kidney: wnl IMPRESSION: Cholelithiasis without other sonographic evidence of acute cholecystitis. However a posit fernando sonographic Salazar sign is noted by the director operating and correlation with serum laboratory values is recommended.
[2019-08-15] MEDS ORDERED: KETOROLAC 30 MG/ML 1 ML VIAL IVP STA (08:45)
[2019-08-15] MEDS ORDERED: NALOXONE 0.4 MG/ML 1 ML VIAL IV PRN (08:57)
[2019-08-15] MEDS ORDERED: ONDANSETRON 4 MG/2 ML VIAL IVP PRN (08:57)
[2019-08-15] MEDS ORDERED: PIPERACILLIN-TAZOBACTAM 3.375 GM in SODIUM CHLORIDE 0.9% 100 ML IVPB STA (09:01)
[2019-08-15] MEDS: SODIUM CHLORIDE 0.9% 1,000 ML IV SCH (09:09)
[2019-08-15] MEDS ORDERED: HYDROmorphone 0.5 MG/0.5 ML SYRINGE IVP PRN (12:23)
--- NOTE | 2019-08-15 12:25 | P.GSHP ---
History of Present Illness H&P Date: 08/15/19 Chief Complaint: abdominal pain CHIEF COMPLAINT: abdominal pain HISTORY OF PRESENT ILLNESS: 24 year old female who presented to the ER with a chief complaint of abdominal pain. Patient examined this morning at the bedside. She reports having pain intermittently for the last two weeks. Pain is in her back and right upper quadrant. Not affected by certain foods. Denies nausea or vomiting. Denies fever or chills. PAST MEDICAL HISTORY: See list. PAST SURGICAL HISTORY: See list. SOCIAL HISTORY: No illicit drug use. REVIEW OF SYSTEMS: CONSTITUTIONAL: Denies fever or chills. HEENT: Denies blurred vision, vision changes, or eye pain. Denies hemoptysis CARDIOVASCULAR: Denies chest pain or pressure. RESPIRATORY: No shortness of breath. GASTROINTESTINAL: Refer to HPI for pertinent findings HEMATOLOGIC: Denies bleeding disorders. GENITOURINARY: Denies any blood in urine. SKIN: Denies pruitis. Denies rash. PHYSICAL EXAM: VITAL SIGNS: Reviewed. GENERAL: Well-developed in no acute distress. HEENT: No sclera icterus. Extraocular movements grossly intact. Moist buccal mucosa. Head is atraumatic, normocephalic. ABDOMEN: Soft. Nondistended. Mild tenderness with palpation of right upper quadrant. NEUROLOGIC: Alert and oriented. Cranial nerves II through XII grossly intact. LABORATORY DATA: WBC 8.1. Hemoglobin 15.1. Platelet count 328. IMAGING: Abdominal ultrasound: Cholelithiasis. ASSESSMENT: 1. Abdominal pain 2. Cholelithiasis PLAN: Clear liquid diet. NPO at midnight Patient to undergo lap analy tomorrow with Dr. Coats Nurse practitioner note has been reviewed by physician. Signing provider agrees with the documented findings, assessment, and plan of care. Past Medical History Past Medical History: No Reported History History of Any Multi-Drug Resistant Organisms: None Reported Past Surgical History: No Surgical Hx Reported Past Anesthesia/Blood Transfusion Reactions: No Reported Reaction Past Psychological History: No Psychological Hx Reported Smoking Status: Never smoker Past Alcohol Use History: None Reported Past Drug Use History: None Reported - Past Family History Father History Unknown: Yes Mother Family Medical History: Fibromyalgia Additional Family Medical History / Comment(s): emphysema Medications and Allergies Home Medications Medication Instructions Recorded Confirmed Type Acetaminophen [Tylenol] 325 mg PO Q6H PRN 10/29/18 08/15/19 History Allergies Allergy/AdvReac Type Severity Reaction Status Date / Time No Known Allergies Allergy Verified 08/15/19 08:25 Surgical - Exam Vital Signs Temp Pulse Resp BP Pulse Ox 97.3 F L 92 18 134/70 100 08/15/19 04:11 08/15/19 04:11 08/15/19 04:11 08/15/19 04:11 08/15/19 04:11 Results - Labs 08/15/19 04:33 08/15/19 04:33 Abnormal Lab Results - Last 24 Hours (Table) 08/15/19 08/15/19 Range/Units 04:33 04:33 D-Dimer 1.03 H (<0.60) mg/L FEU Glucose 103 H (74-99) mg/dL Diabetes panel 08/15/19 Range/Units 04:33 Sodium 138 (137-145) mmol/L Potassium 4.2 (3.5-5.1) mmol/L Chloride 106 (98-107) mmol/L Carbon Dioxide 23 (22-30) mmol/L BUN 17 (7-17) mg/dL Creatinine 0.56 (0.52-1.04) mg/dL Glucose 103 H (74-99) mg/dL Calcium 9.7 (8.4-10.2) mg/dL AST 27 (14-36) U/L ALT 30 (4-34) U/L Alkaline Phosphatase 93 (38-126) U/L Total Protein 7.5 (6.3-8.2) g/dL Albumin 4.3 (3.5-5.0) g/dL Calcium panel 08/15/19 Range/Units 04:33 Calcium 9.7 (8.4-10.2) mg/dL Albumin 4.3 (3.5-5.0) g/dL Pituitary panel 08/15/19 Range/Units 04:33 Sodium 138 (137-145) mmol/L Potassium 4.2 (3.5-5.1) mmol/L Chloride 106 (98-107) mmol/L Carbon Dioxide 23 (22-30) mmol/L BUN 17 (7-17) mg/dL Creatinine 0.56 (0.52-1.04) mg/dL Glucose 103 H (74-99) mg/dL Calcium 9.7 (8.4-10.2) mg/dL Adrenal panel 08/15/19 Range/Units 04:33 Sodium 138 (137-145) mmol/L Potassium 4.2 (3.5-5.1) mmol/L Chloride 106 (98-107) mmol/L Carbon Dioxide 23 (22-30) mmol/L BUN 17 (7-17) mg/dL Creatinine 0.56 (0.52-1.04) mg/dL Glucose 103 H (74-99) mg/dL Calcium 9.7 (8.4-10.2) mg/dL Total Bilirubin 1.0 (0.2-1.3) mg/dL AST 27 (14-36) U/L ALT 30 (4-34) U/L Alkaline Phosphatase 93 (38-126) U/L Total Protein 7.5 (6.3-8.2) g/dL Albumin 4.3 (3.5-5.0) g/dL
[2019-08-15] MEDS ORDERED: TEMAZEPAM 15 MG CAP PO PRN (15:16)
[2019-08-15] MEDS ORDERED: ALPRAZolam 0.25 MG TAB PO PRN (15:16)
[2019-08-15] MEDS: KETOROLAC 30 MG/ML 1 ML VIAL IVP PRN ×2 (15:26→21:44)
[2019-08-15] MEDS: PIPERACILLIN-TAZOBACTAM 3.375 GM in SODIUM CHLORIDE 0.9% 100 ML IVPB SCH ×2 (15:29→23:18)
--- NOTE | 2019-08-15 17:17 | CONS ---
CONSULTATION DATE OF SERVICE: 08/15/2019. REASON FOR CONSULTATION: Advice regarding elevated D-dimer and other medical issues requested by Dr. Coats. HISTORY OF PRESENT ILLNESS: This is a 24-year-old woman with a past medical history of no significant medical issues, not being followed by any primary physician in the outpatient setting complaining of abdominal pain for the last several weeks. The pain is mostly in the right upper quadrant. It is also radiating to the back sometimes. The patient came to [facility] and the patient had a chest CTA which showed breathing motion artifact and no acute abnormality. The patient also had abdominal ultrasound which was suggestive of cholelithiasis. The patient admitted for further evaluation and treatment. There is no history of fever, rigors. No history of headache, loss of consciousness, or seizures. PAST MEDICAL HISTORY: No history of cardiovascular illness. MEDICATIONS: Tylenol. ALLERGIES: None. FAMILY HISTORY: History of fibromyalgia, emphysema. SOCIAL HISTORY: No history of smoking. No alcohol. REVIEW OF SYSTEMS: ENT: No diminished hearing or diminished vision. CARDIOVASCULAR: No angina. RESPIRATION: No cough, fever. GI: As mentioned earlier. : No dysuria. NERVOUS SYSTEM: No numbness or weakness. ALLERGY/IMMUNOLOGY: No asthma or hayfever. MUSCULOSKELETAL: As mentioned earlier. HEMATOLOGY/ONCOLOGY: No history of anemia. ENDOCRINE: No history of diabetes or hypothyroidism. CONSTITUTIONAL: As mentioned earlier. DERMATOLOGY: Negative. RHEUMATOLOGY: Negative. PSYCHIATRY: As mentioned earlier. PHYSICAL EXAMINATION: Alert and oriented x3. Pulse is 60, blood pressure 95/57, respiration 17, temperature 98.4, pulse ox 98% on room air. HEENT: Conjunctivae normal. NECK: No jugular venous distension. CARDIOVASCULAR SYSTEM: S1, S2, muffled. RESPIRATION: Breath sounds diminished at the bases, no rhonchi, no crackles. ABDOMEN: Soft, mild diffuse tenderness in the right upper quadrant. No mass palpable. LEGS: No edema, no swelling. NERVOUS SYSTEM: No focal deficits. LABS: CBC within normal. D-dimer is 1.013. Glucose 103. ASSESSMENT: 1. Abdominal pain with possible acute cholecystitis and cholelithiasis. 2. Increased D-dimer with no evidence of pulmonary embolism. 3. Increased random blood sugar glucose. 4. Obesity with body mass of 33.2. RECOMMENDATION: Recommend to continue current management and symptomatic treatment. The patient is clinically stable, cleared for surgery. Will follow the patient closely with incentive spirometry. DVT prophylaxis. Patient will be asked to follow with primary physician closely. Thank you Dr. Coats for letting us participate in the care of this patient. Patient started on broad-spectrum IV antibiotics, also. DILEEPL / OTONIELN: [id number] /
[2019-08-15] MEDS: HEPARIN SODIUM,PORCINE 5,000 UNIT/ML 1 ML VIAL SQ SCH (20:01)
[2019-08-16] MEDS ORDERED: DEXAMETHASONE SOD PHOSPHATE 10 MG/ML 1 ML VIAL IV ONE (01:33)
[2019-08-16] MEDS ORDERED: MIDAZOLAM 2 MG/2 ML VIAL IV PRN (01:33)
[2019-08-16] MEDS ORDERED: LACTATED RINGERS 1,000 ML IV SCH (01:33)
[2019-08-16] MEDS ORDERED: ONDANSETRON 4 MG/2 ML VIAL IVP ONE (01:33)
[2019-08-16] MEDS ORDERED: LIDOCAINE 1% (10MG/ML) FOR IV START INTRADERMA PRN (01:33)
[2019-08-16] MEDS: SODIUM CHLORIDE 0.9% 1,000 ML IV SCH ×3 (01:44→08:14)
[2019-08-16] MEDS ORDERED: IV FLUID CONTINUATION 1,000 ML IV ONE (07:20)
[2019-08-16] MEDS ORDERED: SUCCINYLCHOLINE CHLORIDE 100 MG/5 ML SYR IV ONE (07:35)
[2019-08-16] MEDS ORDERED: PROPOFOL 10 MG/ML 20 ML VIAL IV ONE (07:35)
[2019-08-16] MEDS ORDERED: fentaNYL (PF) 50 MCG/ML 2 ML AMP ONE (07:35)
[2019-08-16] MEDS ORDERED: NEOSTIGMINE 1 MG/ML 10 ML VIAL ONE (07:35)
[2019-08-16] MEDS ORDERED: MIDAZOLAM 2 MG/2 ML VIAL ONE (07:35)
[2019-08-16] MEDS ORDERED: GLYCOPYRROLATE 0.2 MG/ML 2 ML VIAL ONE (07:35)
[2019-08-16] MEDS ORDERED: KETOROLAC 30 MG/ML 1 ML VIAL ONE (07:35)
[2019-08-16] MEDS: HEPARIN SODIUM,PORCINE 5,000 UNIT/ML 1 ML VIAL SQ SCH (07:49)
[2019-08-16] MEDS: PIPERACILLIN-TAZOBACTAM 3.375 GM in SODIUM CHLORIDE 0.9% 100 ML IVPB SCH (08:10)
[2019-08-16] MEDS ORDERED: BUPIVACAIN-EPI 0.25%-1:200,000 30 ML VIAL SQ ONE (08:35)
[2019-08-16] MEDS ORDERED: PANTOPRAZOLE 40 MG/10 ML VIAL IVP SCH (09:00)
[2019-08-16] MEDS ORDERED: LACTATED RINGERS 1,000 ML IV ONE (09:15)
[2019-08-16 09:35] VITALS: TEMP 98.2
[2019-08-16] MEDS: HYDROmorphone 0.5 MG/0.5 ML SYRINGE IVP PRN ×2 (09:37→09:42)
--- NOTE | 2019-08-16 09:45 | P.OP ---
Date of Procedure: 08/16/19 Preoperative Diagnosis: Cholecystitis Postoperative Diagnosis: Cholecystitis Procedure(s) Performed: Laparoscopic cholecystectomy Anesthesia: LUIS ANGEL Surgeon: Aj Coats Estimated Blood Loss (ml): 5 Pathology: other (Gallbladder) Condition: stable Disposition: PACU Description of Procedure: The patient was placed on the operating table. The patient received a general endotracheal tube anesthesia. The patients abdomen was prepped and draped in the usual sterile fashion. Through an infraumbilical stab incision, the fascia of the anterior abdominal wall was grasped with a pair of Kochers and then the Veress needle was placed in the peritoneal cavity. Position of the Veress needle was confirmed with positive drop test. The abdomen was then insufflated. After adequate insufflation, the 10 mm trocar was placed in the peritoneal cavity. Following this the laparoscope was placed in the peritoneal cavity. The patient was placed in the head-up, right side up position and then a 5 mm trocar was placed in the right lateral and right subcostal position under direct visualization. A 8 mm trocar was placed in the epigastric position. The gallbladder was grasped in the fundus and infundibulum. Traction on the gallbladder was placed in the lateral and the cephalad positions. The triangle of Calot was visualized.. The cystic duct was bluntly dissected until the union of the cystic duct and common bile duct was seen. A critical view of safety was achieved. The cystic duct was then divided and sealed with the Harmonic scissors. A PDS Endoloop was then placed throughout the cystic duct stump. The cystic artery divided and sealed with the Harmonic scissors. The gallbladder was then removed from the liver bed using Harmonic scissors. The gallbladder was then extracted through the epigastric port site. Operative field was checked for any bleeding spots and Harmonic scissors was used to coagulate the liver bed. The abdomen was irrigated. The trocars were removed. The skin was closed using interrupted 3-0 Vicryl suture. Dermabond dressing were applied. The patient tolerated the procedure well.
[2019-08-16 10:01] VITALS: BP 118/58; PULSE 60; RESP 16
--- NOTE | 2019-08-16 11:20 | P.DS ---
Providers Date of admission: 08/15/19 09:06 Expected date of discharge: 08/16/19 Attending physician: Aj Coats Consults: 08/15/19 12:24 Consult Physician Routine Consulting Provider: Orlando Ramos Consult Reason/Comments: medical management Do you want consulting provider notified?: Yes Primary care physician: Stated None Hospital Course: 24 year old female who presented to the ER with a chief complaint of abdominal pain. She reports having pain intermittently for the last two weeks. Pain is in her back and right upper quadrant. Not affected by certain foods. Denies nausea or vomiting. Denies fever or chills. Patient underwent laparoscopic cholecystectomy with Dr. Coats on 08/16/2019. Patient is doing well postoperatively without any immediate complications. She was deemed stable for discharge home today per Dr. Coats. Please see EMR for further hospital course details. Discharge Diagnosis: 1. Abdominal pain 2. Cholelithiasis 3. Cholecystitis Nurse practitioner note has been reviewed by physician. Signing provider agrees with the documented findings, assessment, and plan of care. Patient Condition at Discharge: Stable Plan - Discharge Summary Discharge Rx Participant: Yes New Discharge Prescriptions: New Docusate [Colace] 100 mg PO BID #20 capsule HYDROcodone/APAP 5-325MG [Grant 5-325] 1 tab PO Q6HR PRN #10 tab PRN Reason: Pain No Action Acetaminophen [Tylenol] 325 mg PO Q6H PRN PRN Reason: Pain Discharge Medication List Acetaminophen [Tylenol] 325 mg PO Q6H PRN 10/29/18 [History] Docusate [Colace] 100 mg PO BID #20 capsule 08/16/19 [Rx] HYDROcodone/APAP 5-325MG [Grant 5-325] 1 tab PO Q6HR PRN #10 tab 08/16/19 [Rx] Follow up Appointment(s)/Referral(s): None,Stated [Primary Care Provider] - 1-2 days Aj Coats MD [STAFF PHYSICIAN] - 1 Week Activity/Diet/Wound Care/Special Instructions: No driving while taking Grant No lifting over 10 pounds You may shower. No soaking or tub baths Very light activity until you are reevaluated at your follow up appointment with your surgeon
--- NOTE | 2019-08-16 13:27 | P.PN ---
Subjective patient is admitted for cholecystitis underwent cholecystectomy, patient is clinically doing well is being discharged today. Constitutional: Denied any fatigue denied any fever. Cardio vascular: denied any chest pain, palpitations Gastrointestinal denied any nausea vomiting Pulmonary: Denied any shortness of breath cough Neurologic denied any new focal deficits All inpatient medications were reviewed and appropriate changes in these medications as dictated in the interval history and assessment and plan. Objective - Vital Signs Vital signs: Vital Signs Temp 98.2 F 08/16/19 09:21 Pulse 60 08/16/19 10:00 Resp 16 08/16/19 10:00 BP 118/58 08/16/19 10:00 Pulse Ox 94 L 08/16/19 10:00 Intake & Output 08/15/19 08/16/19 08/16/19 18:59 06:59 18:59 Intake Total 260 780 800 Output Total 5 Balance 260 780 795 Weight 90.718 kg Intake: IV 800 Intake, IV Titration 260 780 Amount Sodium Chloride 0.9% 1, 260 780 000 ml @ 130 mls/hr IV . [facility]M [facility] Rx#:[id number] Output: Estimated Blood Loss 5 Other: Voiding Method Toilet # Voids 1 1 - Exam PHYSICAL EXAMINATION: GENERAL: The patient is alert and oriented x3, not in any acute distress. obese HEENT: Pupils are round and equally reacting to light. EOMI. No scleral icterus. No conjunctival pallor. Normocephalic, atraumatic. No pharyngeal erythema. No thyromegaly. CARDIOVASCULAR: S1 and S2 present. No murmurs, rubs, or gallops. PULMONARY: Chest is clear to auscultation, no wheezing or crackles. ABDOMEN: Soft, nontender,surgical site areas appear to be clean MUSCULOSKELETAL: No joint swelling or deformity. EXTREMITIES: No cyanosis, clubbing, or pedal edema. NEUROLOGICAL: Gross neurological examination did not reveal any focal deficits. SKIN: No rashes. - Labs CBC & Chem 7: 08/15/19 04:33 08/15/19 04:33 Assessment and Plan Plan: -acute cholecystitis status post cholecystectomy patient is being discharged today. -Elevated d-dimer secondary to sepsis. No evidence of PE -obesity. Patient can be discharged from medical perspective
== END 2019-08-16 13:57 | disposition home or self-care (01) ==
LOC: EC 04:06 → 5NMEDONC 09:06
PROVIDERS: ADMIT Surgery; ATTEND Surgery
DX: K80.62 Calculus of gallbladder and bile duct with acute cholecystitis without obstruction (principal); R79.89 Other specified abnormal findings of blood chemistry; R73.09 Other abnormal glucose; E66.9 Obesity, unspecified; Z68.33 Body mass index [BMI] 33.0-33.9, adult; Z79.899 Other long term (current) drug therapy; Z82.5 Family history of asthma and other chronic lower respiratory diseases; Z82.69 Family history of other diseases of the musculoskeletal system and connective tissue; Z11.59 Encounter for screening for other viral diseases
CPT/HCPCS: 47562; 96376; 96365; 96375; 99285; 36415; 93005; 85379; 88304; 80053; 82150; 83690; 85025; 81003; 81025; 87635; 76705; 71275; G0378 ×2; J2543 ×2; J1644 ×2; J1100; J2405; J1885; J1170 ×2; C9113; Q9967

== ENCOUNTER 2020-08-03 19:55 | Outpatient (CLI) | payer BC, OTHER ==
[2020-08-03] MEDS ORDERED: LACTATED RINGERS 1,000 ML IV SCH (20:30)
[2020-08-03 20:50] LABS: Appearance,Urine Cloudy (Clear); Bilirubin,Urine Negative (Negative); Blood,Urine Negative (Negative); Color,Urine Yellow; Glucose,Urine (UA) Trace (Negative); Ketones,Urine Negative (Negative); Leukocyte Esterase,Urine Trace (Negative); Mucus,Urine Moderate /hpf; Nitrite,Urine Negative (Negative); Protein,Urine Trace (Negative); RBC,Urine 1 /hpf (0-5); Specific Gravity,Urine 1.029 (1.001-1.035); Squamous Epithelial Cell,Urine 10 /hpf (0-4); WBC,Urine 2 /hpf (0-5)
[2020-08-03 21:34] VITALS: BP 126/70; PULSE 93; RESP 15; TEMP 97.8
--- NOTE | 2020-09-03 07:42 | P.MSEPDOC ---
Presenting Problems - Arrival Data Date of Arrival on Unit: 08/03/20 Time of Arrival on Unit: 19:55 Mode of Transport: Ambulatory - Complaint OB-Reason for Admission/Chief Complaint: Pain Comment: Patient complains of suprapubic pain Medical History - Information : 2 Para: 1 Term: 1 : 0 Abortions: Spontaneous or Elective: 0 Number of Living Children: 1 - Gestational Age Gestational Age by ANNIE (wks/days): 32 Weeks and 1 Days Review of Systems - Review of Systems Constitutional: No problems Breast: No problems ENT: No problems Cardiovascular: No problems Respiratory: No problems Gastrointestinal: No problems Genitourinary: No problems Musculoskeletal: No problems Neurological: No problems Skin: No problems Vital Signs - Temperature Temperature: 97.8 F Temperature Source: Temporal Artery Scan - Pulse Pulse Oximetery Pulse Rate: 93 Pulse Assessment Method: Automatic Cuff - Respirations Respiratory Rate: 15 Oxygen Delivery Method: Room Air O2 Sat by Pulse Oximetry: 100 - Blood Pressure Right Arm Blood Pressure: 126/70 Blood Pressure Mean: 88 Blood Pressure Source: Automatic Cuff Medical Screen Scoring (Pre) - Cervical Exam Dilation: 0 cm = 0 Membranes: Intact - Uterine Contractions Frequency: N/A Duration: N/A Intensity: N/A - Maternal Vital Signs Maternal Temperature: N/A Maternal Blood Pressure: N/A Signs of Preeclampsia: N/A Maternal Respirations: N/A - Maternal Trauma Maternal Trauma: N/A - Assessment - Baby A Baseline FHR: 140 Heart Rate - NICHD Category: Category I (Normal) = 0 NST: Reactive Position: N/A Station: N/A - Total Score - Baby A Total Score - Baby A: 0 - Total Score - Baby B Total Score - Baby B: 0 - Total Score - Baby C Total Score - Baby C: 0 - Level of Risk - Baby A Level of Risk - Baby A: Low (0-5) - Level of Risk - Baby B Level of Risk - Baby B: Low (0-5) - Level of Risk - Baby C Level of Risk - Baby C: Low (0-5) Physician Notification (Pre) - Physician Notified Physician Notified Date: 08/03/20 Physician Notified Time: 20:19 New Order Received: Yes Medical Screen Scoring (Post) - Uterine Contractions Frequency: N/A Duration: N/A Intensity: N/A - Maternal Vital Signs Maternal Temperature: N/A Maternal Blood Pressure: N/A Signs of Preeclampsia: N/A Maternal Respirations: N/A - Maternal Trauma Maternal Trauma: N/A - Assessment - Baby A Heart Rate: 140 Heart Rate - NICHD Category: Category I (Normal) = 0 NST: Reactive Position: N/A Station: N/A - Total Score Total Score - Baby A: 0 Total Score - Baby B: 0 Total Score - Baby C: 0 - Post Treatment Level of Risk Post Treatment Level of Risk - Baby A: Low (0-5) Post Treatment Level of Risk - Baby B: Low (0-5) Post Treatment Level of Risk - Baby C: Low (0-5) Disposition - Disposition OB Disposition: Physician follow up in office, Discharge to home Discharge Date: 08/03/20 Discharge Time: 21:20 I agree with the RN Medical Screening Exam: Yes Case reviewed; plan agreed upon as documented in EMR&OBIX.: Yes Comments: Patient is neither seen nor examined by me Diagnosis: RELATED CONDITIONS, UNSPECIFIED, THIRD TRIMESTER
== END 2020-08-03 21:20 | disposition home or self-care (01) ==
LOC: FBPOP 19:55
PROVIDERS: ATTEND Obstetrics & Gynecology
DX: O26.93 Pregnancy related conditions, unspecified, third trimester (principal); Z3A.32 32 weeks gestation of pregnancy
CPT/HCPCS: 59025; 81001; 87086; 96360; 99214

== ENCOUNTER 2020-09-02 19:13 | Outpatient (CLI) | payer BC, OTHER ==
[2020-09-02 20:01] VITALS: BP 136/69; PULSE 90; RESP 16; TEMP 96.5
--- NOTE | 2020-10-03 15:16 | P.MSEPDOC ---
Presenting Problems - Arrival Data Date of Arrival on Unit: 09/02/20 Time of Arrival on Unit: 19:51 Mode of Transport: Ambulatory - Complaint OB-Reason for Admission/Chief Complaint: Possible Onset of Labor Comment: Patient presents to triage with complaints of back pain since yesterday that is constant in nature. States she has been having "strong" contractions since around 1800 this evening and noted an increase in mucus discharge. Patient states she did have intercourse today. Medical History - Information : 2 Para: 1 Term: 1 : 0 Abortions: Spontaneous or Elective: 0 Number of Living Children: 1 - Gestational Age Gestational Age by ANNIE (wks/days): 36 Weeks and 5 Days Review of Systems - Review of Systems Constitutional: No problems Breast: No problems ENT: No problems Cardiovascular: No problems Respiratory: No problems Gastrointestinal: No problems Genitourinary: No problems Musculoskeletal: No problems Neurological: No problems Skin: No problems Vital Signs - Temperature Temperature: 96.5 F Temperature Source: Temporal Artery Scan - Pulse Pulse Oximetery Pulse Rate: 90 Pulse Assessment Method: Pulse Oximetry - Respirations Respiratory Rate: 16 Oxygen Delivery Method: Room Air - Blood Pressure Sitting Blood Pressure: 136/69 Blood Pressure Mean: 91 Blood Pressure Source: Automatic Cuff Medical Screen Scoring - Assessment - Baby A Baseline FHR: 145 Physician Notification - Physician Notified Physician Notified Date: 09/02/20 Physician Notified Time: 19:35 Physician: Antonette Arora New Order Received: Yes - Notification Comment Comment: Orders given to give patient the choice to stay for one hour and be rechecked or to be discharged home now with instructions since she was the same dilation in the office last week. Physician states for patient to increase hydration and to remain on pelvic rest until regularly scheduled appt on 09/04 Disposition - Disposition OB Disposition: Discharge to home, Written follow up instructions reviewed Discharge Date: 09/02/20 Discharge Time: 19:51 I agree with the RN Medical Screening Exam: Yes Case reviewed; plan agreed upon as documented in EMR&OBIX.: Yes Diagnosis: FALSE LABOR BEFORE 37 COMPLETED WEEKS OF GEST, THIRD TRI
== END 2020-09-02 19:51 | disposition home or self-care (01) ==
LOC: FBPOP 19:13
PROVIDERS: ATTEND Obstetrics & Gynecology Obstetrics
DX: O47.03 False labor before 37 completed weeks of gestation, third trimester (principal); Z3A.36 36 weeks gestation of pregnancy
CPT/HCPCS: 59025; 99213

== ENCOUNTER 2020-09-20 06:02 | Inpatient (IN) | payer BC, OTHER ==
[2020-09-20] MEDS ORDERED: METHYLERGONOVINE 0.2 MG/ML 1 ML AMP IM PRN (06:12)
[2020-09-20] MEDS ORDERED: LIDOCAINE 0.5% (PF) 5 MG/ML (50 ML SDV) SQ PRN (06:12)
[2020-09-20] MEDS ORDERED: TERBUTALINE 1 MG/ML VIAL SQ PRN (06:12)
[2020-09-20] MEDS ORDERED: OXYTOCIN 10 UNIT/ML 1 ML VIAL IM PRN (06:12)
[2020-09-20] MEDS ORDERED: CARBOPROST TROMETHAMINE 250 MCG/ML 1 ML AMP IM PRN (06:12)
[2020-09-20] MEDS ORDERED: OXYTOCIN 30 UNITS/500 ML NS 30 UNIT in SALINE 1 500ML.BAG IV SCH (06:15)
[2020-09-20] MEDS ORDERED: AMPICILLIN 2,000 MG in SODIUM CHLORIDE 0.9% 100 ML IVPB STA (06:16)
[2020-09-20] MEDS: LACTATED RINGERS 1,000 ML IV SCH ×3 (06:24→15:42)
[2020-09-20 06:37] VITALS: RESP 16
[2020-09-20 06:41] LABS: Basophils % (A) 0 %; Eosinophils # (A) 0.1 k/uL (0-0.7); Eosinophils % (A) 1 %; HGB 14.9 gm/dL (11.4-16.0); Lymphocytes # (A) 2.9 k/uL (1.0-4.8); Lymphocytes % (A) 29 %; MCH 32.1 pg (25.0-35.0); MCHC 35.5 g/dL (31.0-37.0); MCV 90.5 fL (80.0-100.0); Mean Platelet Volume 7.9; Monocytes # (A) 0.4 k/uL (0-1.0); Monocytes % (A) 4 %; Neutrophils # (A) 6.7 k/uL (1.3-7.7); Neutrophils % (A) 65 %; Platelet Count 349 k/uL (150-450); RBC 4.64 m/uL (3.80-5.40); RDW 12.3 % (11.5-15.5); WBC 10.3 k/uL (3.8-10.6)
[2020-09-20] MEDS ORDERED: SODIUM CHLORIDE 0.9% 100 ML BAG ONE (10:06)
[2020-09-20] MEDS ORDERED: ROPIVACAINE 5MG/ML 20ML VIAL ONE (10:06)
[2020-09-20] MEDS ORDERED: fentaNYL (PF) 50 MCG/ML 5 ML AMP ONE (10:06)
[2020-09-20] MEDS: AMPICILLIN 1,000 MG in SODIUM CHLORIDE 0.9% 50 ML IVPB SCH ×2 (10:43→15:42)
[2020-09-20] MEDS ORDERED: ACETAMINOPHEN TAB 325 MG TAB PO STA (12:33)
[2020-09-20] MEDS ORDERED: diphenhydrAMINE 25 MG CAP PO PRN (15:43)
[2020-09-20] MEDS ORDERED: HYDROCORTISONE 2.5% RECTAL CREAM 30 GM TUBE RECTAL PRN (15:43)
[2020-09-20] MEDS ORDERED: LANOLIN CREAM 5 GM TUBE TOPICAL PRN (15:43)
[2020-09-20] MEDS ORDERED: diphenhydrAMINE 50 MG CAP PO PRN (15:43)
[2020-09-20] MEDS ORDERED: ZOLPIDEM 5 MG TAB PO PRN (15:43)
[2020-09-20] MEDS ORDERED: BENZOCAINE/MENTHOL SPRAY 1 GM/SPRAY AEROSOL TOPICAL PRN (15:43)
[2020-09-20] MEDS ORDERED: ACETAMINOPHEN TAB 325 MG TAB PO PRN (15:43)
[2020-09-20] MEDS ORDERED: SIMETHICONE 80 MG CHEWABLE PO PRN (15:43)
[2020-09-20] MEDS ORDERED: diphenhydrAMINE 50 MG/ML 1 ML VIAL IVP PRN ×2 (15:43)
[2020-09-20] MEDS: IBUPROFEN 600 MG TAB PO SCH ×2 (15:52→22:29)
--- NOTE | 2020-09-20 17:10 | P.PROBDLV ---
Vaginal Delivery Note - . Vaginal Delivery Note: This is a 25-year-old at 39-0/7 weeks that presented to labor and delivery for induction of labor. Patient was admitted to labor and delivery and Pitocin induction of labor was begun. Amniotomy was performed and clear fluid was obtained. Patient soon became uncomfortable and did request epidural placement. Epidural was placed without difficulty by the anesthesia department. Patient progressed to complete began pushing and had a normal spontaneous vaginal delivery of a viable male infant at 1527, weight of 8 pounds 6.2 ounces. Apgars of 9 and 9 were noted at one and 5 minutes respectfully. After two-minute delay the umbilical cord was doubly clamped and cut and the infant was handed off to the maternal abdomen. The placenta was then delivered spontaneously intact with a three-vessel cord being noted. On inspection the patient's vaginal vault a first-degree vaginal laceration was appreciated. This was repaired in the usual fashion with 3-0 Rapide. Hemostasis was appreciated after repair. The uterus was noted to be firm and below the umbilicus after delivery. Estimated blood loss 100 mL. Patient and tolerated delivery well and are resting comfortably . All counts were noted to be correct 2 at the end of the delivery.
--- NOTE | 2020-09-20 17:12 | P.HPOB ---
History of Present Illness H&P Date: 09/20/20 Chief Complaint: IUP at 39-0/7 weeks This is a 25 showed at 39-0/7 weeks that presents to labor and delivery for elective induction of labor. Patient has been receiving routine care which has been essentially uncomplicated. Patient notes good movement denies vaginal bleeding or loss of fluid. On bloodwork this patient has a blood type of O+, rubella status immune, B surface antigen negative, HIV negative, RPR is nonreactive. Group beta strep is noted to be positive. Review of Systems Constitutional: Denies chills, Denies fatigue, Denies fever Ears, nose, mouth and throat: Denies headache Cardiovascular: Reports leg edema Respiratory: Denies dyspnea Gastrointestinal: Denies constipation, Denies diarrhea, Denies nausea, Denies vomiting Genitourinary: Reports Past Medical History Past Medical History: No Reported History History of Any Multi-Drug Resistant Organisms: None Reported Past Surgical History: No Surgical Hx Reported Additional Past Surgical History / Comment(s): august 2019 gallbladder removed Past Anesthesia/Blood Transfusion Reactions: No Reported Reaction Past Psychological History: No Psychological Hx Reported Smoking Status: Never smoker Past Alcohol Use History: None Reported Past Drug Use History: None Reported - Past Family History Father History Unknown: Yes Mother Family Medical History: Fibromyalgia Additional Family Medical History / Comment(s): emphysema Medications and Allergies Home Medications Medication Instructions Recorded Confirmed Type Pnv,Calcium 72/Iron/Folic Acid 1 tab PO DAILY 08/03/20 09/20/20 History [ Plus Tablet] Allergies Allergy/AdvReac Type Severity Reaction Status Date / Time No Known Allergies Allergy Verified 09/02/20 19:15 Exam Osteopathic Statement: *. No significant issues noted on an osteopathic stru ctural exam other than those noted in the History and Physical/Consult. Vital Signs Temp Pulse Resp BP Pulse Ox 09/20/20 06:10 96.6 F L 86 16 130/65 97 Intake and Output 09/19/20 09/20/20 09/20/20 22:59 06:59 14:59 Other: Weight 98.883 kg Targeted physical exam is performed and state in general this a well-nourished well-developed female in no acute distress, breathing is noted to be nonlabored, heart has regular rhythm, abdomen is gravid and appropriate for gestational age. On cervical exam she is 3-450-2 station. Amniotomy is performed and copious clear fluid is appreciated. heart tones are noted to be category 1 and she is dinora every 4 minutes. Results Result Diagrams: 09/20/20 06:20 Assessment and Plan (1) Term Current Visit: No Status: Acute Code(s): Z34.90 - ENCNTR FOR SUPRVSN OF NORMAL , UNSP, UNSP TRIMESTER SNOMED Code(s): 62523322 (2) GBS (group B Streptococcus carrier), +RV culture, currently Current Visit: Yes Status: Acute Code(s): O99.820 - STREPTOCOCCUS B CARRIER STATE COMPLICATING SNOMED Code(s): 2385004369187 Plan: 35-year-old at 39 0/7 weeks is admitted for elective induction of labor. Pitocin induction of labor is begun per hospital protocol. IV ampicillin is begun for GBS prophylaxis. Options for analgesia are discussed including Stadol and epidural. Patient will consider. Anticipate spontaneous vaginal delivery later today.
[2020-09-20] MEDS: SENNOSIDES-DOCUSATE SODIUM 1 EACH TAB PO SCH (19:55)
[2020-09-21] MEDS: IBUPROFEN 600 MG TAB PO SCH ×2 (04:09→12:24)
[2020-09-21] MEDS: SENNOSIDES-DOCUSATE SODIUM 1 EACH TAB PO SCH (07:54)
[2020-09-21 08:25] VITALS: BP 94/59; PULSE 67; TEMP 97.9
--- NOTE | 2020-09-21 08:46 | P.DS ---
Providers Date of admission: 09/20/20 06:02 Expected date of discharge: 09/21/20 Attending physician: Antonette Arora Primary care physician: Stated None - Discharge Diagnosis(es) (1) Term Current Visit: No Status: Acute (2) GBS (group B Streptococcus carrier), +RV culture, currently Current Visit: Yes Status: Acute (3) Status post vaginal delivery Current Visit: No Status: Acute Hospital Course: This is a 25-year-old 2 now para 2 that presented to labor and delivery at 39-0/7 weeks for elective induction of labor. Patient had been receiving routine care which has been essentially uncomplicated. For full details on this patient please see the dictated history and physical. Patient was admitted and Pitocin induction of labor was begun per hospital protocol. Patient underwent amniotomy and clear fluid was obtained. Patient progressed through labor eventually requesting epidural. Epidural was placed without difficulty by the anesthesia department. Patient progressed to complete began pushing and had a normal spontaneous vaginal delivery of a viable male infant at 1527, weight of 8 pounds 6.2 ounces. Patient did sustain a first-degree vaginal laceration which was repaired in the usual fashion with 3-0 Rapide. Patient's course has been uneventful. On this day #1 she is ambulating and voiding without difficulty. She is tolerating a regular diet without nausea or vomiting. She states her pain is well-controlled. She does desire discharge home at 24 hours. Patient Condition at Discharge: Good Plan - Discharge Summary New Discharge Prescriptions: No Action Pnv,Calcium 72/Iron/Folic Acid [ Plus Tablet] 1 tab PO DAILY Discharge Medication List Pnv,Calcium 72/Iron/Folic Acid [ Plus Tablet] 1 tab PO DAILY 08/03/20 [History] Follow up Appointment(s)/Referral(s): Antonette Arora DO [Doctor of Osteopathic Medicine] - 4 Weeks Patient Instructions/Handouts: Vaginal Delivery (GEN), Vaginal Delivery (DC) Discharge Disposition: HOME SELF-CARE
== END 2020-09-21 16:15 | disposition home or self-care (01) | DRG 807 ==
LOC: 4FBP 06:02
PROVIDERS: ADMIT Obstetrics & Gynecology Obstetrics; ATTEND Obstetrics & Gynecology Obstetrics
PROC: 10E0XZZ Delivery of Products of Conception, External Approach (ICD-10-PCS; principal; 2020-09-20)
PROC: 0HQ9XZZ Repair Perineum Skin, External Approach (ICD-10-PCS; 2020-09-20)
DX: O99.824 Streptococcus B carrier state complicating childbirth (principal); Z37.0 Single live birth; O70.0 First degree perineal laceration during delivery; Z3A.39 39 weeks gestation of pregnancy; Z82.5 Family history of asthma and other chronic lower respiratory diseases
CPT/HCPCS: 85025; 86850; 86900; 86901

== ENCOUNTER 2022-02-28 09:17 | Outpatient (CLI) | payer BC ==
[2022-02-28 09:57] LABS: Appearance,Urine Cloudy (Clear); Bacteria,Urine Occasional /hpf; Bilirubin,Urine Negative (Negative); Blood,Urine Negative (Negative); Calcium Oxalate Crystals,Urine Occasional /hpf; Color,Urine Yellow; Glucose,Urine (UA) 2+ (Negative); Ketones,Urine Negative (Negative); Leukocyte Esterase,Urine Moderate (Negative); Mucus,Urine Many /hpf; Nitrite,Urine Negative (Negative); PH, Urine 5.5 (5.0-8.0); Protein,Urine Trace (Negative); Specific Gravity,Urine 1.023 (1.001-1.035); Squamous Epithelial Cell,Urine 6 /hpf (0-4); WBC,Urine 6 /hpf (0-5)
[2022-02-28 10:28] VITALS: BP 132/69; PULSE 90; RESP 17; TEMP 96
--- NOTE | 2022-04-02 19:35 | P.MSEPDOC ---
Presenting Problems - Arrival Data Date of Arrival on Unit: 02/28/22 Time of Arrival on Unit: 09:17 Mode of Transport: Ambulatory - Complaint OB-Reason for Admission/Chief Complaint: Acute Nausea/Vomiting, Headache Comment: pt presents to triage for headache for the last 5 days, and nausea that started 2 days ago, pt having some visual differences, but states she recently obtained new glasses Medical History - Information : 3 Para: 2 Term: 2 : 0 Abortions: Spontaneous or Elective: 0 Number of Living Children: 2 - Gestational Age Gestational Age by ANNIE (wks/days): 34 Weeks and 5 Days Review of Systems - Review of Systems Constitutional: No problems Breast: No problems ENT: No problems Cardiovascular: No problems Respiratory: No problems Gastrointestinal: No problems Genitourinary: No problems Musculoskeletal: No problems Neurological: No problems Skin: No problems Vital Signs - Temperature Temperature: 96.0 F Temperature Source: Axillary - Pulse Right Brachial Pulse Rate: 90 Pulse Assessment Method: Automatic Cuff - Respirations Respiratory Rate: 17 Oxygen Delivery Method: Room Air O2 Sat by Pulse Oximetry: 97 - Blood Pressure Right Arm Blood Pressure: 132/69 Blood Pressure Mean: 90 Blood Pressure Source: Automatic Cuff Medical Screen Scoring - Assessment - Baby A Baseline FHR: 135 Heart Rate - NICHD Category: Category I (Normal) NST: Reactive Physician Notification - Physician Notified Physician Notified Date: 02/28/22 Physician Notified Time: :41 Physician: Antonette Arora New Order Received: Yes - Notification Comment Comment: UA was sent, oral hydration given, nst reactive, bp's wnl, next appt in office is Mar 10, instructed to drink fluids until urine is clear and recommened 25 mg po benadryl to help with sleep as pt as not slept well in the last week Maternal Triage Index - Maternal Triage Index Presenting for scheduled procedure w/no complaint: No - Stat/Priority 1 Stat Priority 1: No - Urgent/Priority 2 Urgent Priority 2: Yes Provider Notified: Antonette Arora Provider Notified Time: 09:41 Criteria Met for Priority 2: pt presents to triage for headache for the last 5 days, and nausea that started 2 days ago, pt having some visual differences, but states she recently obtained new glasses Disposition - Disposition OB Disposition: Triage, Discharge to home, Written follow up instructions reviewed Discharge Date: 02/28/22 Discharge Time: 10:10 I agree with the RN Medical Screening Exam: Yes Case reviewed; plan agreed upon as documented in EMR&OBIX.: Yes Diagnosis: RELATED CONDITIONS, UNSPECIFIED, THIRD TRIMESTER
== END 2022-02-28 10:10 | disposition home or self-care (01) ==
LOC: FBPOP 09:17
PROVIDERS: ATTEND Obstetrics & Gynecology Obstetrics
DX: O26.893 Other specified pregnancy related conditions, third trimester (principal); Z3A.34 34 weeks gestation of pregnancy; R11.0 Nausea; R51.9 Headache, unspecified
CPT/HCPCS: 59025; 81001; 99213

== ENCOUNTER 2022-04-01 06:00 | Inpatient (IN) | payer BC, OTHER ==
[2022-04-02] MEDS ORDERED: LIDOCAINE 0.5% (PF) 5 MG/ML (50 ML SDV) SQ PRN (06:03)
[2022-04-02] MEDS ORDERED: TERBUTALINE 1 MG/ML VIAL SQ PRN (06:03)
[2022-04-02] MEDS: LACTATED RINGERS 1,000 ML IV SCH ×3 (06:14→13:01)
[2022-04-02] MEDS ORDERED: OXYTOCIN 30 UNITS/500 ML NS 30 UNIT in SALINE 1 500ML.BAG IV SCH ×2 (06:15→14:45)
[2022-04-02 06:53] LABS: Basophils % (A) 0 %; Eosinophils # (A) 0.1 k/uL (0-0.7); Eosinophils % (A) 1 %; HCT 41.3 % (34.0-46.0); HGB 13.9 gm/dL (11.4-16.0); Lymphocytes # (A) 2.3 k/uL (1.0-4.8); Lymphocytes % (A) 25 %; MCH 31.1 pg (25.0-35.0); MCHC 33.7 g/dL (31.0-37.0); MCV 92.4 fL (80.0-100.0); Mean Platelet Volume 8.6; Monocytes # (A) 0.3 k/uL (0-1.0); Monocytes % (A) 4 %; Neutrophils # (A) 6.3 k/uL (1.3-7.7); Neutrophils % (A) 68 %; Platelet Count 247 k/uL (150-450); RBC 4.47 m/uL (3.80-5.40); RDW 12.4 % (11.5-15.5); WBC 9.3 k/uL (3.8-10.6)
--- NOTE | 2022-04-02 09:00 | P.HPOB ---
History of Present Illness H&P Date: 04/02/22 Chief Complaint: IUP at 39-3/7 weeks This is a 26-year-old at 39-3/7 weeks, estimated due date of 1224 that presents for elective induction of labor. Patient has been receiving routine care which is been essentially uncomplicated. Today patient notes good movement and occasional contractions denies loss of fluid or vaginal bleeding. On bloodwork this patient is a blood type of O+, rubella status immune, hepatitis B surface antigen negative, HIV negative, RPR nonreactive, group beta strep cultures are negative. Review of Systems Constitutional: Denies chills, Denies fatigue, Denies fever Ears, nose, mouth and throat: Denies headache Cardiovascular: Reports leg edema Respiratory: Denies dyspnea Gastrointestinal: Denies constipation, Denies diarrhea, Denies nausea, Denies vomiting Genitourinary: Reports Past Medical History Past Medical History: No Reported History History of Any Multi-Drug Resistant Organisms: None Reported Past Surgical History: No Surgical Hx Reported Additional Past Surgical History / Comment(s): august 2019 gallbladder removed Past Anesthesia/Blood Transfusion Reactions: No Reported Reaction Past Psychological History: No Psychological Hx Reported Smoking Status: Never smoker Past Alcohol Use History: None Reported Past Drug Use History: None Reported - Past Family History Father History Unknown: Yes Mother Family Medical History: Fibromyalgia Additional Family Medical History / Comment(s): emphysema Medications and Allergies Home Medications Medication Instructions Recorded Confirmed Type Vit No.180/Iron/Folic 1 tab PO DAILY 08/03/20 04/02/22 History [ Plus Tablet] Allergies Allergy/AdvReac Type Severity Reaction Status Date / Time No Known Allergies Allergy Verified 04/02/22 06:02 Exam Osteopathic Statement: *. No significant issues noted on an osteopathic structural exam other than those noted in the History and Physical/Consult. 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 heart tones returned be category 1 contractions are not graphing well. Results Result Diagrams: 04/02/22 06:05 Assessment and Plan (1) Term Current Visit: No Status: Acute Code(s): Z34.90 - ENCNTR FOR SUPRVSN OF NORMAL , UNSP, UNSP TRIMESTER SNOMED Code(s): 11574595 Plan: 26-year-old at 39-3/7 weeks presents for elective induction of labor. P atient is admitted to labor and delivery and Pitocin induction of labor is begun. Amniotomy is performed. Options for pain management are discussed including Stadol, nitrous, epidural. Patient will consider, anticipate spontaneous vaginal delivery
[2022-04-02] MEDS ORDERED: SODIUM CHLORIDE 0.9% 100 ML BAG ONE (13:20)
[2022-04-02] MEDS ORDERED: ROPIVACAINE 5 MG/ML 20 ML AMPULE ONE (13:20)
[2022-04-02] MEDS ORDERED: fentaNYL (PF) 50 MCG/ML 5 ML AMP ONE (13:20)
--- NOTE | 2022-04-02 13:51 | P.ANPRN ---
Procedure Note - Anesthesia - Epidural/Spinal Epidural Time Out Performed: Yes Date of Procedure: 04/02/22 Procedure Start Time: 12:35 Procedure Stop Time: 12:58 Location of Patient: OB Indication: Requested by Surgeon Sedation Type: Sedate with meaningful contact maintained Preparation: Sterile Dressing Position: Sitting Catheter: Indwelling (epidural catheter 10 cm at skin) Needle Guage: Other (see comment) (20 G [place]) Injectate: 3 ml 1% lido with epi-negative Blood Aspirated: No Pain Paresthesia on Injection Noted: No Events: Uneventful and Well Tolerated (see note for ENCAPSULATOR bolus and infusion record)
[2022-04-02] MEDS ORDERED: diphenhydrAMINE 50 MG CAP PO PRN (14:41)
[2022-04-02] MEDS ORDERED: SIMETHICONE 80 MG CHEWABLE PO PRN (14:41)
[2022-04-02] MEDS ORDERED: ZOLPIDEM 5 MG TAB PO PRN (14:41)
[2022-04-02] MEDS ORDERED: ACETAMINOPHEN TAB 325 MG TAB PO PRN (14:41)
[2022-04-02] MEDS ORDERED: LANOLIN CREAM 5 GM TUBE TOPICAL PRN (14:41)
[2022-04-02] MEDS ORDERED: diphenhydrAMINE 50 MG/ML 1 ML VIAL IVP PRN ×2 (14:41)
[2022-04-02] MEDS ORDERED: BENZOCAINE/MENTHOL SPRAY 1 GM/SPRAY AEROSOL TOPICAL PRN (14:41)
[2022-04-02] MEDS ORDERED: HYDROCORTISONE 2.5% RECTAL CREAM 30 GM TUBE RECTAL PRN (14:41)
[2022-04-02] MEDS ORDERED: diphenhydrAMINE 25 MG CAP PO PRN (14:41)
--- NOTE | 2022-04-02 14:44 | P.PROBDLV ---
Vaginal Delivery Note - . Vaginal Delivery Note: Findings viable male delivered at 1428, weight of 7 lbs. 7 oz., Apgars of 9 and 9 at one and 5 minutes respectively. 26-year-old at 39-3/7 weeks that presented to labor and delivery for elective induction of labor. Patient is receiving routine care which essentially encompassed needed. Patient was admitted and Pitocin induction of labor was begun per hospital protocol. Patient underwent amniotomy and clear fluid was obtained. Patient progressed in labor eventually having uncomfortable and requesting epidural placement. Epidural was placed without difficulty by the anesthesia department. Patient made quick progress to complete and began pushing. Patient had a normal spontaneous vaginal delivery of a viable male infant at 1420, weight of 7 lbs. 7 oz. with a compound left hand. No nuchal cord was appreciated. Apgars of 9 and 9 at one and 5 minutes after two-minute delay the umbilical cord was doubly clamped and cut. Infant was handed to the maternal abdomen and a spontaneous cry was appreciated. The placenta was delivered spontaneously intact with a three-vessel cord being appreciated. Uterus is noted be firm and below the umbilicus. A red rubber catheter was used to drain the bladder of 200 mL of clear yellow urine. Estimated blood loss 100 mL. Patient and tolerated delivery well and are resting comfortable he.
[2022-04-02] MEDS: IBUPROFEN 600 MG TAB PO SCH ×2 (17:32→21:43)
[2022-04-02] MEDS: SENNOSIDES-DOCUSATE SODIUM 1 EACH TAB PO SCH (21:43)
[2022-04-02 21:59] VITALS: RESP 16
[2022-04-03] MEDS: IBUPROFEN 600 MG TAB PO SCH ×2 (06:17→13:32)
[2022-04-03] MEDS: SENNOSIDES-DOCUSATE SODIUM 1 EACH TAB PO SCH (08:51)
--- NOTE | 2022-04-03 08:56 | P.DS ---
Providers Date of admission: 04/02/22 05:55 Expected date of discharge: 04/03/22 Attending physician: Antonette Arora Primary care physician: Stated None - Discharge Diagnosis(es) (1) Term Current Visit: No Status: Acute (2) Status post normal vaginal delivery Current Visit: Yes Status: Acute (3) Obstetric vaginal laceration with first degree perineal laceration Current Visit: Yes Status: Acute Hospital Course: 26-year-old G3 now P3 at 39-3/7 weeks that presented to labor and delivery yesterday for elective induction of labor. Patient had been receiving routine preop care with myself which has been essentially uncomplicated. For full details on this patient please see the dictated history and physical. Patient was admitted and Pitocin induction of labor was begun per hospital protocol. Patient progressed through labor eventually becoming uncomfortable and requesting epidural placement. Epidural was placed without difficulty by the anesthesia department. Patient quickly progressed to complete began pushing and had a normal spontaneous vaginal delivery of a viable male at 1428, weight of 7 lbs. 7 oz., Apgars of 9 and 9 at one and 5 minutes respectively. Patient's post course has been uneventful. On this day #1 she is ambulating and voiding without difficulty. She is tolerating regular diet without nausea or vomiting. She states her pain is well-controlled. She denies concerns and would like discharge home later stay possible. Patient Condition at Discharge: Good Plan - Discharge Summary New Discharge Prescriptions: No Action Vit No.180/Iron/Folic [ Plus Tablet] 1 tab PO DAILY Discharge Medication List Vit No.180/Iron/Folic [ Plus Tablet] 1 tab PO DAILY 08/03/20 [History] Follow up Appointment(s)/Referral(s): Antonette Arora DO [Doctor of Osteopathic Medicine] - 4 Weeks Patient Instructions/Handouts: Vaginal Delivery (GEN), Vaginal Delivery (DC) Activity/Diet/Wound Care/Special Instructions: bleeding is reviewed with patient. No tub baths or intercourse until 6 weeks . Patient is to follow-up in the office for routine visit in 4 weeks. Should she have any concerns prior to this visit she is urged to call the office Discharge Disposition: HOME SELF-CARE
[2022-04-03 15:50] VITALS: BP 118/74; PULSE 74; TEMP 98.3
== END 2022-04-03 18:10 | disposition home or self-care (01) | DRG 807 ==
LOC: 4FBP 04-02 05:55
PROVIDERS: ADMIT Obstetrics & Gynecology Obstetrics; ATTEND Obstetrics & Gynecology Obstetrics
PROC: 0HQ9XZZ Repair Perineum Skin, External Approach (ICD-10-PCS; principal; 2022-04-02)
PROC: 10E0XZZ Delivery of Products of Conception, External Approach (ICD-10-PCS; principal; 2022-04-02)
PROC: 10907ZC Drainage of Amniotic Fluid, Therapeutic from Products of Conception, Via Natural or Artificial Opening (ICD-10-PCS; 2022-04-02)
PROC: 3E033VJ Introduction of Other Hormone into Peripheral Vein, Percutaneous Approach (ICD-10-PCS; 2022-04-02)
DX: O70.0 First degree perineal laceration during delivery (principal); Z37.0 Single live birth; O32.6XX0 Maternal care for compound presentation, not applicable or unspecified; Z28.310 Unvaccinated for COVID-19; Z3A.39 39 weeks gestation of pregnancy; Z82.5 Family history of asthma and other chronic lower respiratory diseases
CPT/HCPCS: 85025; 86850; 86900; 86901

== ENCOUNTER 2022-12-13 22:53 | Emergency (ER) | payer BC, OTHER ==
[2022-12-13 23:01] VITALS: RESP 18
[2022-12-13] MEDS ORDERED: DEXAMETHASONE SOD PHOSPHATE 10 MG/ML 1 ML VIAL IVP STA (23:35)
[2022-12-13] MEDS ORDERED: METOCLOPRAMIDE 5 MG/ML 2 ML VIAL IVP STA (23:35)
[2022-12-13] MEDS ORDERED: SODIUM CHLORIDE 0.9% 1,000 ML IV STA (23:35)
[2022-12-13] MEDS ORDERED: KETOROLAC 15 MG/ML 1 ML VIAL IVP STA (23:35)
[2022-12-13] MEDS ORDERED: diphenhydrAMINE 50 MG/ML 1 ML VIAL IVP STA (23:35)
[2022-12-13 23:39] VITALS: TEMP 98.2
[2022-12-14] MEDS ORDERED: HYDROcodone/APAP 7.5-325MG 1 EACH TAB PO ONE (00:37)
--- NOTE | 2022-12-14 00:49 | ED ---
Headache HPI - General Chief Complaint: Headache Stated Complaint: 3 week headache Time Seen by Provider: 12/13/22 23:29 Mode of arrival: ambulatory Limitations: no limitations - History of Present Illness Initial Comments: 7-year-old female presenting with chief complaint of headache. Patient has history of migraine headaches and states that this feels similar to those of the past. She has had a headache on and off for 3 weeks. She admits to some tension in the neck as well. No fevers or chills. Some nausea with no vomiting. She admits to light sensitivity. No vision or hearing changes. No numbness, tingling, weakness. She has been taking Excedrin with little relief - Related Data Home Medications Medication Instructions Recorded Confirmed Vit No.180/Iron/Folic 1 tab PO DAILY 08/03/20 04/02/22 [ Plus Tablet] Allergies Allergy/AdvReac Type Severity Reaction Status Date / Time No Known Allergies Allergy Verified 12/13/22 22:59 Review of Systems ROS Statement: Those systems with pertinent positive or pertinent negative responses have been documented in the HPI. ROS Other: All systems not noted in ROS Statement are negative. Past Medical History Past Medical History: No Reported History History of Any Multi-Drug Resistant Organisms: None Reported Past Surgical History: Cholecystectomy Additional Past Surgical History / Comment(s): august 2019 gallbladder removed Past Anesthesia/Blood Transfusion Reactions: No Reported Reaction Past Psychological History: No Psychological Hx Reported Smoking Status: Never smoker Past Alcohol Use History: None Reported Past Drug Use History: None Reported - Past Family History Father History Unknown: Yes Mother Family Medical History: Fibromyalgia Additional Family Medical History / Comment(s): emphysema General Exam Limitations: no limitations General appearance: alert, in no apparent distress Head exam: Present: atraumatic, normocephalic, normal inspection Eye exam: Present: normal appearance, PERRL, EOMI. Absent: scleral icterus, conjunctival injection, periorbital swelling Neck exam: Present: normal inspection, full ROM. Absent: tenderness Respiratory exam: Present: normal lung sounds bilaterally. Absent: respiratory distress, wheezes, rales, rhonchi, stridor Cardiovascular Exam: Present: regular rate, normal rhythm, normal heart sounds. Absent: systolic murmur, diastolic murmur, rubs, gallop, clicks Neurological exam: Present: alert, oriented X3, CN II-XII intact Expanded Patient oriented to: Present: person, place, time Speech: Present: fluid speech Cranial nerves: EOM's Intact: Normal Eye Response: (4) open spontaneously Motor Response: (6) obeys commands Verbal Response: (5) oriented Zeeshan Total: 15 Psychiatric exam: Present: normal affect, normal mood Skin exam: Present: warm, dry, intact, normal color. Absent: rash Course Vital Signs 12/13/22 12/13/22 12/14/22 22:59 23:01 00:01 Temperature 98.5 F 98.2 F Pulse Rate 83 70 67 Respiratory 18 18 18 Rate Blood Pressure 131/82 129/84 118/69 O2 Sat by Pulse 98 100 100 Oximetry 12/14/22 01:30 Temperature 98.2 F Pulse Rate 67 Respiratory 18 Rate Blood Pressure 118/69 O2 Sat by Pulse 100 Oximetry Medical Decision Making - Medical Decision Making Was pt. sent in by a medical professional or institution (, PA, ACETYLENE OPERATOR, urgent care, hospital, or residential...) When possible be specific @ -[No] Did you speak to anyone other than the patient for history (EMS, parent, family, police, friend...)? What history was obtained from this source @ -[No] Did you review nursing and triage notes (agree or disagree)? Why? @ -[I reviewed and agree with nursing and triage notes] Were old charts reviewed (outside hosp., previous admission, EMS record, old EKG, old radiological studies, urgent care reports/EKG's, residential records)? Report findings @ -[No old charts were reviewed] Differential Diagnosis (chest pain, altered mental status, abdominal pain women, abdominal pain men, vaginal bleeding, weakness, fever, dyspnea, syncope, headache, dizziness, GI bleed, back pain, seizure, CVA, palpatations, mental health, musculoskeletal)? @ -[facility] Differential Headache: Migraine, tension, cluster, carbon monoxide, central venous thrombosis, pension karma temporal arteritis, acute closure glaucoma, intercranial hemorrhage, mastoiditis, sinusitis, head injury this is not meant to be an all-inclusive list. EKG interpreted by me (3pts min.). @ -[As above] X-rays interpreted by me (1pt min.). @ -[None done] CT interpreted by me (1pt min.). @ -[None done] U/S interpreted by me (1pt. min.). @ -[None done] What testing was considered but not performed or refused? (CT, X-rays, U/S, labs)? Why? @ -[None] What meds were considered but not given or refused? Why? @ -[None] Did you discuss the management of the patient with other professionals (professionals i.e. Dr., PA, ACETYLENE OPERATOR, lab, RT, psych nurse, social media strategist, channeling machine operator, teacher, traffic officer, medical case manager)? Give summary @ -[No] Was smoking cessation discussed for >3mins.? @ -[No] Was critical care preformed (if so, how long)? @ -[No] Were there social determinants of health that impacted care today? How? (Homelessness, low income, unemployed, alcoholism, drug addiction, transportation, low edu. Level, literacy, decrease access to med. care, [facility], rehab)? @ -[No] Was there de-escalation of care discussed even if they declined (Discuss DNR or withdrawal of care, Hospice)? DNR status @ -[No] What co-morbidities impacted this encounter? (DM, HTN, Smoking, COPD, CAD, Cancer, CVA, ARF, Chemo, Hep., AIDS, mental health diagnosis, sleep apnea, morbid obesity)? @ -[None] Was patient admitted / discharged? Hospital course, mention meds given and route, prescriptions, significant lab abnormalities, going to OR and other pertinent info. @ -27-year-old female presenting with chief complaint of headache. She has history of migraines. On physical examination there are no focal neurological deficits, GCS is 15. Patient is given a migraine cocktail and on reassessment her symptoms have improved. She is discharged home. Follow-up with PCP. Report back to ER with any new or worsening symptoms. Discussed return parameters and answered all questions. Patient conveyed verbal understanding and agreed to the plan. I discussed this case in detail with my attending Dr. Abraham Undiagnosed new problem with uncertain prognosis? @ -[No] Drug Therapy requiring intensive monitoring for toxicity (Heparin, Nitro, Insulin, Cardizem)? @ -[No] Were any procedures done? @ -[No] Diagnosis/symptom? @ Headache] Acute, or Chronic, or Acute on Chronic? @ Acute] Uncomplicated (without systemic symptoms) or Complicated (systemic symptoms)? @ Uncomplicated] Side effects of treatment? @ -[No] Exacerbation, Progression, or Severe Exacerbation? @ -[No] Poses a threat to life or bodily function? How? (Chest pain, [place], [place], pneumonia, PE, COPD, DKA, ARF, appy, cholecystitis, CVA, Diverticulitis, Homicidal, Suicidal, threat to staff... and all critical care pts) @ -[No] Disposition Clinical Impression: Tension headache Disposition: HOME SELF-CARE Condition: Good Instructions (If sedation given, give patient instructions): Acute Headache (ED) Additional Instructions: Follow-up with PCP. Report back to ER with any new or worsening symptoms. Take Motrin and Tylenol as needed for pain control. Is patient prescribed a controlled substance at d/c from ED?: No Referrals: None,Stated [Primary Care Provider] - 1-2 days Time of Disposition: 00:48
[2022-12-14 01:15] VITALS: BP 118/69; PULSE 67
== END 2022-12-14 01:34 | disposition home or self-care (01) ==
LOC: EC 22:53
DX: G44.209 Tension-type headache, unspecified, not intractable (principal)
CPT/HCPCS: 99283; 96374; 96375 ×3; 96361; J1200; J1100; J2765; J1885

== ENCOUNTER 2023-03-06 10:19 | Emergency (ER) | payer OTHER, BC ==
[2023-03-06] MEDS ORDERED: LIDOCAINE 5% PATCH TOPICAL ONE (12:19)
[2023-03-06] MEDS ORDERED: KETOROLAC 15 MG/ML 1 ML VIAL IM STA (12:19)
[2023-03-06] MEDS ORDERED: ORPHENADRINE 30 MG/ML 2 ML VIAL IM STA (12:19)
--- NOTE | 2023-03-06 12:36 | ED ---
Back Pain HPI - General Chief Complaint: Back Pain/Injury Stated Complaint: lower back pain Time Seen by Provider: 03/06/23 12:05 Source: patient, RN notes reviewed Mode of arrival: ambulatory Limitations: no limitations - History of Present Illness Initial Comments: This is a 27-year-old female who presents to the emergency department for lower back pain. States that when she woke up she was fine, however throughout the day and at work she developed increasing pain to the lower back. Feels like it became severe and she is barely able to walk. Denies any loss of bowel/bladder control or saddle anesthesia. She has not had any injuries, also denies any history of similar symptoms in the past. MD Complaint: back pain - Related Data Home Medications Medication Instructions Recorded Confirmed Vit No.180/Iron/Folic 1 tab PO DAILY 08/03/20 04/02/22 [ Plus Tablet] Previous Rx's Medication Instructions Recorded Lidocaine 5% Patch [Lidoderm 5% 1 patch TOPICAL DAILY PRN #30 patch 03/06/23 Patch] methocarbamoL [Robaxin-750] 1,500 mg PO TID PRN #30 tab 03/06/23 predniSONE 50 mg PO DAILY 5 Days #5 tab 03/06/23 Allergies Allergy/AdvReac Type Severity Reaction Status Date / Time No Known Allergies Allergy Verified 03/06/23 11:18 Review of Systems ROS Statement: Those systems with pertinent positive or pertinent negative responses have been documented in the HPI. ROS Other: All systems not noted in ROS Statement are negative. Past Medical History Past Medical History: No Reported History History of Any Multi-Drug Resistant Organisms: None Reported Past Surgical History: Cholecystectomy Additional Past Surgical History / Comment(s): august 2019 gallbladder removed Past Anesthesia/Blood Transfusion Reactions: No Reported Reaction Past Psychological History: No Psychological Hx Reported Smoking Status: Never smoker Past Alcohol Use History: None Reported Past Drug Use History: None Reported - Past Family History Father History Unknown: Yes Mother Family Medical History: Fibromyalgia Additional Family Medical History / Comment(s): emphysema General Exam Limitations: no limitations General appearance: alert, in distress Head exam: Present: atraumatic, normocephalic, normal inspection Respiratory exam: Present: normal lung sounds bilaterally. Absent: respiratory distress, wheezes, rales, rhonchi, stridor Cardiovascular Exam: Present: regular rate, normal rhythm, normal heart sounds. Absent: systolic murmur, diastolic murmur, rubs, gallop, clicks Back exam: Present: normal inspection, tenderness (lower back) Neurological exam: Present: alert, oriented X3, CN II-XII intact Psychiatric exam: Present: normal affect, normal mood Skin exam: Present: warm, dry, intact, normal color. Absent: rash Course Vital Signs 03/06/23 03/06/23 03/06/23 11:15 14:44 15:15 Temperature 98.1 F 98.5 F Pulse Rate 69 59 L Respiratory 18 14 18 Rate Blood Pressure 126/81 105/68 O2 Sat by Pulse 98 100 Oximetry Medical Decision Making - Medical Decision Making This is a 27-year-old female who presents to the emergency department for lower back pain. Was pt. sent in by a medical professional or institution? @ -No Did you speak to anyone other than the patient for history? @ -No Did you review nursing and triage notes? @ -Yes, and I agree, it is accurate with regards to the patient's symptoms. Were old charts reviewed? @ -No Differential Diagnosis? @ -Differential Back Pain: Strain, zoster, cauda equina syndrome, epidural abscess, vertebral osteomyelitis, discitis, fracture, subluxation, disc herniation, DJD, spinal stenosis, dissection, AAA, pancreatitis, peptic ulcer disease, pyelonephritis, kidney stone, this is not meant to be an all-inclusive list. EKG interpreted by me (3pts min.)? @ -Not obtained X-rays interpreted by me (1pt min.)? @ -X-ray of the lumbar spine obtained. My interpretation identifies no acute fractures. CT interpreted by me (1pt min.)? @ -Not obtained U/S interpreted by me (1pt. min.)? @ -Not obtained What testing was considered but not performed? (CT, X-rays, U/S, labs)? Why? @ -None What meds were considered but not given? Why? @ -None Did you discuss the management of the patient with other professionals? @ -No Did you reconcile home meds? @ -No Was smoking cessation discussed for >3mins.? @ -No Was critical care preformed (if so, how long)? @ -No Were there social determinants of health that impacted care today? How? (Homelessness, low income, unemployed, alcoholism, drug addiction, transportation, low edu. Level, literacy, decrease access to med. care, [facility]dc, rehab)? @ -No Was there de-escalation of care discussed even if they declined? (Discuss DNR or withdrawal of care, Hospice)? @ -No What co-morbidities impacted this encounter? (DM, HTN, Smoking, COPD, CAD, Cancer, CVA, Hep., AIDS, mental health diagnosis, sleep apnea, morbid obesity)? @ -None Was patient admitted / discharged? @ -Discharged. X-ray of the lumbar spine obtained revealing no acute process. Her symptoms were well controlled in the emergency department and she did not have any red flag signs or symptoms. At that point she felt stable for discharge home. Advised that this is likely related to a lumbar strain. Prescription for prednisone, Robaxin, and lidocaine patches provided with dosing instructions reviewed. Otherwise advised follow-up with her primary care provider. Undiagnosed new problem with uncertain prognosis? @ -None Drug Therapy requiring intensive monitoring for toxicity (Heparin, Nitro, Insulin, Cardizem)? @ -None Were any procedures done? @ -None Diagnosis/symptom? @ -Lumbar strain Acute, or Chronic, or Acute on Chronic? @ -Acute Uncomplicated (without systemic symptoms) or Complicated (systemic symptoms)? @ -Uncomplicated Side effects of treatment? @ -None Exacerbation, Progression, or Severe Exacerbation] @ -Not applicable Poses a threat to life or bodily function? @ -This will depend on the severity of her pain. Return precautions reviewed in depth, the patient is instructed to return to the emergency department with any new, worsening, or concerning symptoms. Patient verbalized understanding. This case was discussed in detail with the attending ED physician, Dr. Patrick. Presentation, findings, and treatment plan discussed in detail as well. - Radiology Data Radiology results: report reviewed, image reviewed Disposition Clinical Impression: Strain of lumbar region Disposition: HOME SELF-CARE Instructions (If sedation given, give patient instructions): Low Back Strain (ED), Acute Low Back Pain (ED) Additional Instructions: Return to the emergency department with any new, worsening, or concerning symptoms. Take the prednisone daily for 5 days. You can take the Robaxin as 1- 2 tablets up to 3-4 times daily as needed for pain relief. You can take the [place] up to every 6 hours as needed for pain relief, but try to take this sparingly when your pain is the most severe. Be aware that both the Robaxin and [place] may make you drowsy. You can also apply the lidocaine patches daily. Follow up with your primary care provider in 1-2 days. Prescriptions: Lidocaine 5% Patch [Lidoderm 5% Patch] 1 patch TOPICAL DAILY PRN #30 patch PRN Reason: Pain predniSONE 50 mg PO DAILY 5 Days #5 tab methocarbamoL [Robaxin-750] 1,500 mg PO TID PRN #30 tab PRN Reason: Pain Is patient prescribed a controlled substance at d/c from ED?: No Referrals: Jena Couch MD [Primary Care Provider] - 1-2 days
--- NOTE | 2023-03-06 12:42 | XR ---
EXAMINATION TYPE: XR lumbar spine 2 or 3V DATE OF EXAM: 03/06/2023 CLINICAL HISTORY: pain TECHNIQUE: Three views of the lumbar spine are submitted. COMPARISON: None. FINDINGS: There are 5 lumbar type vertebral bodies identified. Mild curvature convex to the left. The lumbar s pine shows satisfactory alignment without evidence of acute fracture or dislocation. Vertebral body h eights are within normal limits. Disc spaces are within normal limits. The overlying soft tissue a ppears unremarkable. IMPRESSION: No acute fracture or dislocation is seen in the lumbar spine. ICD 10 NO FRACTURE, INITIAL EVALUATION
[2023-03-06] MEDS ORDERED: DEXAMETHASONE SOD PHOSPHATE 10 MG/ML 1 ML VIAL IM STA (13:18)
[2023-03-06] MEDS ORDERED: HYDROmorphone 0.5 MG/0.5 ML SYRINGE IM STA (13:18)
[2023-03-06 14:55] VITALS: BP 105/68; PULSE 59; TEMP 98.5
[2023-03-06 15:21] VITALS: RESP 18
== END 2023-03-06 15:16 | disposition home or self-care (01) ==
LOC: EC 10:19
DX: S39.012A Strain of muscle, fascia and tendon of lower back, initial encounter (principal); X58.XXXA Exposure to other specified factors, initial encounter
CPT/HCPCS: 72100; 99283; 96372 ×4; J1100; J2360; J1885; J1170

== ENCOUNTER 2023-10-07 08:55 | Emergency (ER) | payer BC, OTHER ==
[2023-10-07 09:00] VITALS: TEMP 97.9
[2023-10-07] MEDS: METOCLOPRAMIDE 5 MG/ML 2 ML VIAL IVP STA (09:30)
[2023-10-07] MEDS: SODIUM CHLORIDE 0.9% 2,000 ML IV STA (09:35)
[2023-10-07 09:40] LABS: Basophils % (A) 0 %; Eosinophils % (A) 1 %; HCT 43.8 % (34.0-46.0); HGB 14.6 gm/dL (11.4-16.0); Lymphocytes # (A) 1.4 k/uL (1.0-4.8); Lymphocytes % (A) 21 %; MCH 30.6 pg (25.0-35.0); MCHC 33.4 g/dL (31.0-37.0); MCV 91.5 fL (80.0-100.0); Mean Platelet Volume 7.6; Monocytes # (A) 0.3 k/uL (0-1.0); Monocytes % (A) 4 %; Neutrophils # (A) 4.9 k/uL (1.3-7.7); Neutrophils % (A) 73 %; Platelet Count 275 k/uL (150-450); RBC 4.79 m/uL (3.80-5.40); RDW 11.8 % (11.5-15.5); WBC 6.7 k/uL (3.8-10.6)
[2023-10-07 09:51] LABS: ALT 13 U/L (4-34); AST 23 U/L (14-36); African American GFR (CKD) >90 (>60 ml/min/1.73 sqM); Albumin 4.3 g/dL (3.5-5.0); Alkaline Phosphatase 47 U/L (38-126); Anion Gap 8 mmol/L; Blood Urea Nitrogen 5 mg/dL (7-17); Calcium 9.2 mg/dL (8.4-10.2); Carbon Dioxide 24 mmol/L (22-30); Chloride 105 mmol/L (98-107); Glucose 75 mg/dL (74-99); Lipase 57 U/L (23-300); Non-African American GFR(CKD) >90 (>60 ml/min/1.73 sqM); Potassium 3.9 mmol/L (3.5-5.1); Sodium 137 mmol/L (137-145); Total Bilirubin 1.8 mg/dL (0.2-1.3); Total Protein 7.1 g/dL (6.3-8.2)
[2023-10-07 10:17] LABS: Appearance,Urine Turbid (Clear); Bacteria,Urine Occasional /hpf; Bilirubin,Urine Negative (Negative); Blood,Urine Small (Negative); Color,Urine Yellow; Glucose,Urine (UA) Negative (Negative); Ketones,Urine 2+ (Negative); Leukocyte Esterase,Urine Large (Negative); Mucus,Urine Many /hpf; Nitrite,Urine Negative (Negative); PH, Urine 6.5 (5.0-8.0); Protein,Urine 1+ (Negative); RBC,Urine 6 /hpf (0-5); Specific Gravity,Urine 1.022 (1.001-1.035); Squamous Epithelial Cell,Urine 32 /hpf (0-4); WBC,Urine 55 /hpf (0-5)
--- NOTE | 2023-10-07 10:26 | US ---
EXAMINATION TYPE: Transabdominal DATE OF EXAM: 10/07/2023 9:53 AM COMPARISON: NONE CLINICAL INDICATION: Female, 28 years old with history of pain; nausea and vomiting EXAM PERFORMED: Transabdominal (TA) EXAM MEASUREMENTS: GESTATIONAL AGE / DATING Physician Established: Not yet established Dates by LMP: LMP unknown Dates by First Scan: No previous this is first scan Dates by Current Scan for: (7 weeks/6 days) EDC: 05/18/2024 MATERNAL ANATOMY Uterus: 7.9 x 5.6 x 7.0 cm Right Ovary: 3.4 x 3.3 x 2.0 cm Left Ovary: 2.1 x 1.4 x 2.4 cm Post CDS / Adnexa: wnl Presence of free fluid: no Presence of corpus luteal cyst: no Presence of subchorionic bleed: no GESTATION / SURVEY CRL: 1.46 cm (7 weeks/6 days) Yolk Sac (normal less than 6mm): 5 mm Heart Rate: 161 bpm Rhythm: Normal IUP: Viable IUP Beta HcG (if available): Not available at this time IMPRESSION: Single live intrauterine gestation of 7 weeks 6 days.
--- NOTE | 2023-10-07 11:24 | ED ---
General Adult HPI - General Chief complaint: Nausea/Vomiting/Diarrhea Stated complaint: nvd/6-9wks preg Time Seen by Provider: 10/07/23 09:01 Source: patient, RN notes reviewed Mode of arrival: ambulatory Limitations: no limitations - History of Present Illness Initial comments: 28-year-old female presents emergency department with chief complaints nausea vomiting dehydration abdominal discomfort in . Patient states that she is G4, approximately 8 weeks . Patient states that she sees Dr. Arora Patient called and was advised to come emergency department. She denies any vaginal bleeding vaginal discharge. Patient states she just feels extremely dehydrated, dizzy lightheaded at times. - Related Data Home Medications Medication Instructions Recorded Confirmed Vit No.180/Iron/Folic 1 tab PO DAILY 08/03/20 04/02/22 [ Plus Tablet] Previous Rx's Medication Instructions Recorded Lidocaine 5% Patch [Lidoderm 5% 1 patch TOPICAL DAILY PRN #30 patch 03/06/23 Patch] methocarbamoL [Robaxin-750] 1,500 mg PO TID PRN #30 tab 03/06/23 predniSONE 50 mg PO DAILY 5 Days #5 tab 03/06/23 Cephalexin [Keflex] 500 mg PO Q8HR #21 cap 10/07/23 Metoclopramide [Reglan] 10 mg PO TID PRN #15 tab 10/07/23 Allergies Allergy/AdvReac Type Severity Reaction Status Date / Time No Known Allergies Allergy Verified 10/07/23 08:59 Review of Systems ROS Statement: Those systems with pertinent positive or pertinent negative responses have been documented in the HPI. ROS Other: All systems not noted in ROS Statement are negative. Past Medical History Past Medical History: No Reported History History of Any Multi-Drug Resistant Organisms: None Reported Past Surgical History: Cholecystectomy Additional Past Surgical History / Comment(s): august 2019 gallbladder removed Past Anesthesia/Blood Transfusion Reactions: No Reported Reaction Past Psychological History: No Psychological Hx Reported Smoking Status: Never smoker Past Alcohol Use History: None Reported Past Drug Use History: None Reported - Past Family History Father History Unknown: Yes Mother Family Medical History: Fibromyalgia Additional Family Medical History / Comment(s): emphysema General Exam Limitations: no limitations General appearance: alert, in no apparent distress Head exam: Present: atraumatic, normocephalic, normal inspection Eye exam: Present: normal appearance, PERRL, EOMI. Absent: scleral icterus, conjunctival injection, periorbital swelling ENT exam: Present: normal exam, mucous membranes moist Neck exam: Present: normal inspection, full ROM. Absent: tenderness, meningismus, lymphadenopathy Respiratory exam: Present: normal lung sounds bilaterally. Absent: respiratory distress, wheezes, rales, rhonchi, stridor Cardiovascular Exam: Present: regular rate, normal rhythm, normal heart sounds. Absent: systolic murmur, diastolic murmur, rubs, gallop, clicks GI/Abdominal exam: Present: soft, tenderness, normal bowel sounds. Absent: distended, guarding, rebound, rigid Course Vital Signs 10/07/23 10/07/23 08:57 11:33 Temperature 97.9 F 97.9 F Pulse Rate 63 71 Respiratory 16 18 Rate Blood Pressure 129/84 108/52 O2 Sat by Pulse 100 100 Oximetry Medical Decision Making - Medical Decision Making Was pt. sent in by a medical professional or institution (, PA, INTERNET SYSTEMS ADMINISTRATOR, urgent care, hospital, or detention...) When possible be specific @ -No Did you speak to anyone other than the patient for history (EMS, parent, family, police, friend...)? What history was obtained from this source @ -No Did you review nursing and triage notes (agree or disagree)? Why? @ -I reviewed and agree with nursing and triage notes Were old charts reviewed (outside hosp., previous admission, EMS record, old EKG, old radiological studies, urgent care reports/EKG's, detention records)? Report findings @ -No old charts were reviewed Differential Diagnosis (chest pain, altered mental status, abdominal pain women, abdominal pain men, vaginal bleeding, weakness, fever, dyspnea, syncope, headache, dizziness, GI bleed, back pain, seizure, CVA, palpatations, mental health, musculoskeletal)? @Differential Abdominal Pain Women: Appendicitis, Cholecystitis, diverticulosis, ischemic bowel, pancreatitis, hepatitis, UTI, gastroenteritis, AAA, incarcerated hernia, bowel obstruction, constipation, inflammatory bowel, hepatitis, peptic ulcer disease, splenic infarction, perforated viscus, vulvitis, ovarian torsion, PID, kidney stone, placenta abruption, this is not meant to be an all-inclusive list EKG interpreted by me (3pts min.). @ -None X-rays interpreted by me (1pt min.). @ -None done CT interpreted by me (1pt min.). @ -None done U/S interpreted by me (1pt. min.). @ -Ultrasound OB showed an intrauterine 7 weeks and 6 days no complicating factors What testing was considered but not performed or refused? (CT, X-rays, U/S, l abs)? Why? @ -None What meds were considered but not given or refused? Why? @ -None Did you discuss the management of the patient with other professionals (professionals i.e. , PA, INTERNET SYSTEMS ADMINISTRATOR, lab, RT, psych nurse, protective services social worker, chartered accountant, teacher, head correction officer, case managers)? Give summary @ -No Was smoking cessation discussed for >3mins.? @ -No Was critical care preformed (if so, how long)? @ -No Were there social determinants of health that impacted care today? How? (Homelessness, low income, unemployed, alcoholism, drug addiction, transportation, low edu. Level, literacy, decrease access to med. care, snf, rehab)? @ -No Was there de-escalation of care discussed even if they declined (Discuss DNR or withdrawal of care, Hospice)? DNR status @ -No What co-morbidities impacted this encounter? (DM, HTN, Smoking, COPD, CAD, Cancer, CVA, ARF, Chemo, Hep., AIDS, mental health diagnosis, sleep apnea, morbid obesity)? @ -None Was patient admitted / discharged? Hospital course, mention meds given and route, prescriptions, significant lab abnormalities, going to OR and other pertinent info. @ -Discharge patient feels greatly improved after antiemetics and IV fluids. Patient found to have questionable UTI was started on oral antibiotics after receiving Rocephin. Patient is discharged in stable condition. Undiagnosed new problem with uncertain prognosis? @ -No Drug Therapy requiring intensive monitoring for toxicity (Heparin, Nitro, Insulin, Cardizem)? @ -No Were any procedures done? @ -No Diagnosis/symptom? @ -UTI, dehydration, abdominal pain Acute, or Chronic, or Acute on Chronic? @ -Acute Uncomplicated (without systemic symptoms) or Complicated (systemic symptoms)? @ -Uncomplicated Side effects of treatment? @ -No Exacerbation, Progression, or Severe Exacerbation? @ -No Poses a threat to life or bodily function? How? (Chest pain, [place], [place], pneumonia, PE, COPD, DKA, ARF, appy, cholecystitis, CVA, Diverticulitis, Homicidal, Suicidal, threat to staff... and all critical care pts) @ -No - Lab Data Result diagrams: 10/07/23 09:24 10/07/23 09:24 Lab Results 10/07/23 10/07/23 10/07/23 Range/Units 09:24 09:24 09:24 WBC 6.7 (3.8-10.6) k/uL RBC 4.79 (3.80-5.40) m/uL Hgb 14.6 (11.4-16.0) gm/dL Hct 43.8 (34.0-46.0) % MCV 91.5 (80.0-100.0) fL MCH 30.6 (25.0-35.0) pg MCHC 33.4 (31.0-37.0) g/dL RDW 11.8 (11.5-15.5) % Plt Count 275 (150-450) k/uL MPV 7.6 Neutrophils % 73 % Lymphocytes % 21 % Monocytes % 4 % Eosinophils % 1 % Basophils % 0 % Neutrophils # 4.9 (1.3-7.7) k/uL Lymphocytes # 1.4 (1.0-4.8) k/uL Monocytes # 0.3 (0-1.0) k/uL Eosinophils # 0.0 (0-0.7) k/uL Basophils # 0.0 (0-0.2) k/uL Sodium 137 (137-145) mmol/L Potassium 3.9 (3.5-5.1) mmol/L Chloride 105 (98-107) mmol/L Carbon Dioxide 24 (22-30) mmol/L Anion Gap 8 mmol/L BUN 5 L (7-17) mg/dL Creatinine 0.48 L (0.52-1.04) mg/dL Est GFR (CKD-EPI)AfAm >90 (>60 ml/min/1.73 sqM) Est GFR (CKD-EPI)NonAf >90 (>60 ml/min/1.73 sqM) Glucose 75 (74-99) mg/dL Calcium 9.2 (8.4-10.2) mg/dL Total Bilirubin 1.8 H (0.2-1.3) mg/dL AST 23 (14-36) U/L ALT 13 (4-34) U/L Alkaline Phosphatase 47 (38-126) U/L Total Protein 7.1 (6.3-8.2) g/dL Albumin 4.3 (3.5-5.0) g/dL Lipase 57 (23-300) U/L Urine Color Yellow Urine Appearance Turbid H (Clear) Urine pH 6.5 (5.0-8.0) Ur Specific [place] 1.022 (1.001-1.035) Urine Protein 1+ H (Negative) Urine Glucose (UA) Negative (Negative) Urine Ketones 2+ H (Negative) Urine Blood Small H (Negative) Urine Nitrite Negative (Negative) Urine Bilirubin Negative (Negative) Urine Urobilinogen 3.0 (<2.0) mg/dL Ur Leukocyte Esterase Large H (Negative) Urine RBC 6 H (0-5) /hpf Urine WBC 55 H (0-5) /hpf Ur Squamous Epith Cells 32 H (0-4) /hpf Urine Bacteria Occasional H (None) /hpf Urine Mucus Many H (None) /hpf Disposition Clinical Impression: Urinary tract infection, Nausea/vomiting in Disposition: HOME SELF-CARE Condition: Stable Instructions (If sedation given, give patient instructions): Nausea and Vomiting in (ED) Additional Instructions: Please return to the Emergency Department if symptoms worsen or any other concerns. Prescriptions: Cephalexin [Keflex] 500 mg PO Q8HR #21 cap Metoclopramide [Reglan] 10 mg PO TID PRN #15 tab PRN Reason: Nausea Is patient prescribed a controlled substance at d/c from ED?: No Referrals: Jena Couch MD [Primary Care Provider] - 1-2 days Time of Disposition: 11:24
[2023-10-07] MEDS: cefTRIAXone IN SWFI 1,000 MG/10 ML SYRINGE IVP STA (11:28)
[2023-10-07 11:35] VITALS: BP 108/52; PULSE 71; RESP 18
== END 2023-10-07 11:35 | disposition home or self-care (01) ==
LOC: EC 08:55
DX: O23.41 Unspecified infection of urinary tract in pregnancy, first trimester (principal); N39.0 Urinary tract infection, site not specified; Z3A.01 Less than 8 weeks gestation of pregnancy
CPT/HCPCS: 36415; 80053; 83690; 85025; 81001; 76801; 99284; 96374; 96375; 96361 ×2; J2765; J0696

== ENCOUNTER 2023-10-18 19:56 | Emergency (ER) | payer BC, OTHER ==
[2023-10-18 20:40] VITALS: TEMP 97.9
[2023-10-18 21:42] LABS: Appearance,Urine Cloudy (Clear); Bacteria,Urine Occasional /hpf; Bilirubin,Urine Negative (Negative); Blood,Urine Trace (Negative); Calcium Oxalate Crystals,Urine Occasional /hpf; Color,Urine Yellow; Glucose,Urine (UA) 1+ (Negative); Ketones,Urine 1+ (Negative); Leukocyte Esterase,Urine Moderate (Negative); Mucus,Urine Many /hpf; Nitrite,Urine Negative (Negative); Protein,Urine Trace (Negative); RBC,Urine 2 /hpf (0-5); Specific Gravity,Urine 1.028 (1.001-1.035); Squamous Epithelial Cell,Urine 26 /hpf (0-4); WBC,Urine 15 /hpf (0-5)
[2023-10-18] MEDS: ONDANSETRON 4 MG/2 ML VIAL IVP STA (21:59)
[2023-10-18] MEDS: ACETAMINOPHEN TAB 500 MG TAB PO STA (22:02)
[2023-10-18 22:31] LABS: Basophils % (A) 0 %; Eosinophils # (A) 0.1 k/uL (0-0.7); Eosinophils % (A) 1 %; HCT 41.8 % (34.0-46.0); HGB 13.4 gm/dL (11.4-16.0); Lymphocytes # (A) 2.1 k/uL (1.0-4.8); Lymphocytes % (A) 28 %; MCH 28.8 pg (25.0-35.0); MCHC 32.1 g/dL (31.0-37.0); MCV 89.8 fL (80.0-100.0); Mean Platelet Volume 8.4; Monocytes # (A) 0.4 k/uL (0-1.0); Monocytes % (A) 5 %; Neutrophils # (A) 4.7 k/uL (1.3-7.7); Neutrophils % (A) 63 %; Platelet Count 256 k/uL (150-450); RBC 4.65 m/uL (3.80-5.40); RDW 12.1 % (11.5-15.5); WBC 7.4 k/uL (3.8-10.6)
[2023-10-18 22:50] LABS: ALT 16 U/L (4-34); AST 22 U/L (14-36); African American GFR (CKD) >90 (>60 ml/min/1.73 sqM); Albumin 4.1 g/dL (3.5-5.0); Alkaline Phosphatase 40 U/L (38-126); Anion Gap 7 mmol/L; Blood Urea Nitrogen 4 mg/dL (7-17); Calcium 9.6 mg/dL (8.4-10.2); Carbon Dioxide 23 mmol/L (22-30); Chloride 105 mmol/L (98-107); Glucose 86 mg/dL (74-99); Non-African American GFR(CKD) >90 (>60 ml/min/1.73 sqM); Potassium 3.4 mmol/L (3.5-5.1); Sodium 135 mmol/L (137-145); Total Bilirubin 1.4 mg/dL (0.2-1.3); Total Protein 6.7 g/dL (6.3-8.2)
--- NOTE | 2023-10-18 23:28 | ED ---
Female Urogenital HPI - General Chief complaint: Urogenital Stated complaint: Back Pain - 9 Wks Preg Time Seen by Provider: 10/18/23 21:26 Source: patient Mode of arrival: ambulatory Limitations: no limitations - History of Present Illness Initial comments: 28-year-old female presenting with chief complaint of lower back pain. Patient is currently 9 weeks . She was previously diagnosed with a UTI. States that she has been having lower back pain and is concerned that the UTI is not improving. She denies any dysuria or hematuria. No cramping or vaginal bleeding. No fevers or chills. No flank pain nausea or vomiting. - Related Data Home Medications Medication Instructions Recorded Confirmed Vit No.180/Iron/Folic 1 tab PO DAILY 08/03/20 04/02/22 [ Plus Tablet] Previous Rx's Medication Instructions Recorded Lidocaine 5% Patch [Lidoderm 5% 1 patch TOPICAL DAILY PRN #30 patch 03/06/23 Patch] methocarbamoL [Robaxin-750] 1,500 mg PO TID PRN #30 tab 03/06/23 predniSONE 50 mg PO DAILY 5 Days #5 tab 03/06/23 Cephalexin [Keflex] 500 mg PO Q8HR #21 cap 10/07/23 Metoclopramide [Reglan] 10 mg PO TID PRN #15 tab 10/07/23 Cefpodoxime Proxetil [Vantin] 200 mg PO Q12HR 7 Days #14 tab 10/18/23 Ondansetron Odt [Zofran Odt] 4 mg PO Q8HR PRN #20 tab 10/18/23 Allergies Allergy/AdvReac Type Severity Reaction Status Date / Time No Known Allergies Allergy Verified 10/07/23 08:59 Review of Systems ROS Statement: Those systems with pertinent positive or pertinent negative responses have been documented in the HPI. ROS Other: All systems not noted in ROS Statement are negative. Past Medical History Past Medical History: No Reported History History of Any Multi-Drug Resistant Organisms: None Reported Past Surgical History: Cholecystectomy Additional Past Surgical History / Comment(s): august 2019 gallbladder removed Past Anesthesia/Blood Transfusion Reactions: No Reported Reaction Past Psychological History: No Psychological Hx Reported Smoking Status: Never smoker Past Alcohol Use History: None Reported Past Drug Use History: None Reported - Past Family History Father History Unknown: Yes Mother Family Medical History: Fibromyalgia Additional Family Medical History / Comment(s): emphysema General Exam Limitations: no limitations General appearance: alert, in no apparent distress Head exam: Present: atraumatic, normocephalic Eye exam: Present: normal appearance, EOMI Neck exam: Present: normal inspection. Absent: meningismus Respiratory exam: Absent: respiratory distress Cardiovascular Exam: Present: regular rate Back exam: Present: normal inspection. Absent: CVA tenderness (R), CVA tenderness (L) Neurological exam: Present: alert, oriented X3 Psychiatric exam: Present: normal affect, normal mood Skin exam: Present: warm, dry Course Vital Signs 10/18/23 10/18/23 10/19/23 20:38 21:40 00:56 Temperature 97.9 F Pulse Rate 75 64 65 Respiratory 18 16 16 Rate Blood Pressure 124/81 122/76 118/76 O2 Sat by Pulse 99 98 99 Oximetry Medical Decision Making - Medical Decision Making Was pt. sent in by a medical professional or institution (, PA, PRECISION LENS GRINDER, urgent care, hospital, or detention...) When possible be specific @ -No Did you speak to anyone other than the patient for history (EMS, parent, family, police, friend...)? What history was obtained from this source @ -No Did you review nursing and triage notes (agree or disagree)? Why? @ -I reviewed and agree with nursing and triage notes Were old charts reviewed (outside hosp., previous admission, EMS record, old EKG, old radiological studies, urgent care reports/EKG's, detention records)? Report findings @ -No old charts were reviewed Differential Diagnosis (chest pain, altered mental status, abdominal pain women, abdominal pain men, vaginal bleeding, weakness, fever, dyspnea, syncope, headache, dizziness, GI bleed, back pain, seizure, CVA, palpatations, mental health, musculoskeletal)? @ -Differential includes UTI, pyelonephritis, kidney stone, this is not an all- inclusive list EKG interpreted by me (3pts min.). @ -As above X-rays interpreted by me (1pt min.). @ -None done CT interpreted by me (1pt min.). @ -None done U/S interpreted by me (1pt. min.). @ -None done What testing was considered but not performed or refused? (CT, X-rays, U/S, labs)? Why? @ -None What meds were considered but not given or refused? Why? @ -None Did you discuss the management of the patient with other professionals (professionals i.e. , LISETH, PRECISION LENS GRINDER, lab, RT, psych nurse, school social worker, account support analyst, teacher, bank secrecy act officer, briefcase sewer)? Give summary @ -No Was smoking cessation discussed for >3mins.? @ -No Was critical care preformed (if so, how long)? @ -No Were there social determinants of health that impacted care today? How? (Homelessness, low income, unemployed, alcoholism, drug addiction, transportation, low edu. Level, literacy, decrease access to med. care, usp, rehab)? @ -No Was there de-escalation of care discussed even if they declined (Discuss DNR or withdrawal of care, Hospice)? DNR status @ -No What co-morbidities impacted this encounter? (DM, HTN, Smoking, COPD, CAD, Cancer, CVA, ARF, Chemo, Hep., AIDS, mental health diagnosis, sleep apnea, morbid obesity)? @ -None Was patient admitted / discharged? Hospital course, mention meds given and route, prescriptions, significant lab abnormalities, going to OR and other pertinent info. @ -28-year-old female presenting with chief complaint of lower back pain. Currently 9 weeks . Hide on Keflex, concerned that the infection is not improving. No vaginal bleeding or pelvic pain. Lab work shows no leukocytosis or anemia. Urine shows moderate leukocytes with 15 WBCs and 26 squamous cells. Likely contaminated. Reflex culture was ordered. Patient will be changed to cefpodoxime. Follow-up with PIERCER OPERATOR. Follow-up with PCP. Report back to ER with any new or worsening symptoms. Discussed return parameters and answered all questions. Patient conveyed verbal understanding and agreed to the plan. I discussed this case in detail with my attending Dr. Restrepo Undiagnosed new problem with uncertain prognosis? @ -No Drug Therapy requiring intensive monitoring for toxicity (Heparin, Nitro, Insulin, Cardizem)? @ -No Were any procedures done? @ -No Diagnosis/symptom? @ -UTI in Acute, or Chronic, or Acute on Chronic? @ -Acute Uncomplicated (without systemic symptoms) or Complicated (systemic symptoms)? @ -Uncomplicated Side effects of treatment? @ -No Exacerbation, Progression, or Severe Exacerbation? @ -No Poses a threat to life or bodily function? How? (Chest pain, [place], [place], pneumonia, PE, COPD, DKA, ARF, appy, cholecystitis, CVA, Diverticulitis, Homicidal, Suicidal, threat to staff... and all critical care pts) @ -Low likelihood - Lab Data Result diagrams: 10/18/23 22:00 10/18/23 22:00 Lab Results 10/18/23 10/18/23 10/18/23 Range/Units 20:45 22:00 22:00 WBC 7.4 (3.8-10.6) k/uL RBC 4.65 (3.80-5.40) m/uL Hgb 13.4 (11.4-16.0) gm/dL Hct 41.8 (34.0-46.0) % MCV 89.8 (80.0-100.0) fL MCH 28.8 (25.0-35.0) pg MCHC 32.1 (31.0-37.0) g/dL RDW 12.1 (11.5-15.5) % Plt Count 256 (150-450) k/uL MPV 8.4 Neutrophils % 63 % Lymphocytes % 28 % Monocytes % 5 % Eosinophils % 1 % Basophils % 0 % Neutrophils # 4.7 (1.3-7.7) k/uL Lymphocytes # 2.1 (1.0-4.8) k/uL Monocytes # 0.4 (0-1.0) k/uL Eosinophils # 0.1 (0-0.7) k/uL Basophils # 0.0 (0-0.2) k/uL Sodium 135 L (137-145) mmol/L Potassium 3.4 L (3.5-5.1) mmol/L Chloride 105 (98-107) mmol/L Carbon Dioxide 23 (22-30) mmol/L Anion Gap 7 mmol/L BUN 4 L (7-17) mg/dL Creatinine 0.49 L (0.52-1.04) mg/dL Est GFR (CKD-EPI)AfAm >90 (>60 ml/min/1.73 sqM) Est GFR (CKD-EPI)NonAf >90 (>60 ml/min/1.73 sqM) Glucose 86 (74-99) mg/dL Calcium 9.6 (8.4-10.2) mg/dL Total Bilirubin 1.4 H (0.2-1.3) mg/dL AST 22 (14-36) U/L ALT 16 (4-34) U/L Alkaline Phosphatase 40 (38-126) U/L Total Protein 6.7 (6.3-8.2) g/dL Albumin 4.1 (3.5-5.0) g/dL Urine Color Yellow Urine Appearance Cloudy H (Clear) Urine pH 6.0 (5.0-8.0) Ur Specific [place] 1.028 (1.001-1.035) Urine Protein Trace H (Negative) Urine Glucose (UA) 1+ H (Negative) Urine Ketones 1+ H (Negative) Urine Blood Trace H (Negative) Urine Nitrite Negative (Negative) Urine Bilirubin Negative (Negative) Urine Urobilinogen 2.0 (<2.0) mg/dL Ur Leukocyte Esterase Moderate H (Negative) Urine RBC 2 (0-5) /hpf Urine WBC 15 H (0-5) /hpf Ur Squamous Epith Cells 26 H (0-4) /hpf Calcium Oxalate Crystal Occasional H (None) /hpf Urine Bacteria Occasional H (None) /hpf Urine Mucus Many H (None) /hpf Disposition Clinical Impression: UTI (urinary tract infection) Disposition: HOME SELF-CARE Condition: Good Instructions (If sedation given, give patient instructions): Urinary Tract Infection in (ED) Additional Instructions: Follow-up with your PIERCER OPERATOR. Report back to ER with any new or worsening symptoms. Prescriptions: Cefpodoxime Proxetil [Vantin] 200 mg PO Q12HR 7 Days #14 tab Ondansetron Odt [Zofran Odt] 4 mg PO Q8HR PRN #20 tab PRN Reason: Pain Is patient prescribed a controlled substance at d/c from ED?: No Referrals: Jena Couch MD [Primary Care Provider] - 1-2 days Time of Disposition: 23:27
[2023-10-18 23:51] VITALS: RESP 16
[2023-10-19] MEDS: ONDANSETRON 4 MG ODT STARTER PACK 2 TAB BTL PO STA (00:51)
[2023-10-19] MEDS: CEFDINIR 300 MG CAP PO STA (00:51)
[2023-10-19 00:58] VITALS: BP 118/76; PULSE 65
== END 2023-10-19 00:58 | disposition home or self-care (01) ==
LOC: EC 19:56
DX: O23.41 Unspecified infection of urinary tract in pregnancy, first trimester (principal); N39.0 Urinary tract infection, site not specified; Z3A.01 Less than 8 weeks gestation of pregnancy
CPT/HCPCS: 36415; 80053; 85025; 81001; 87086; 99284; 96374; J2405

== ENCOUNTER 2024-02-28 19:16 | Emergency (ER) | payer OTHER ==
[2024-02-28 19:21] VITALS: TEMP 98.7
[2024-02-28] MEDS: SODIUM CHLORIDE 0.9% 1,000 ML IV STA (20:06)
[2024-02-28] MEDS: ACETAMINOPHEN TAB 325 MG TAB PO STA (20:06)
--- NOTE | 2024-02-28 20:25 | XR ---
EXAMINATION TYPE: XR chest 2V DATE OF EXAM: 02/28/2024 8:17 PM COMPARISON: 09/20/2017 CLINICAL INDICATION: Female, 28 years old with history of Chest Pain, TECHNIQUE: XR chest 2V view(s) obtained. FINDINGS: The heart size is normal. The pulmonary vasculature is normal. The lungs are clear. IMPRESSION: 1. No acute pulmonary process. [facility], , 02/28/2024 8:23 PM
[2024-02-28 20:36] LABS: Basophils % (A) 0 %; Eosinophils # (A) 0.1 k/uL (0-0.7); Eosinophils % (A) 1 %; HCT 38.8 % (34.0-46.0); Lymphocytes # (A) 2.3 k/uL (1.0-4.8); Lymphocytes % (A) 24 %; MCH 30.8 pg (25.0-35.0); MCHC 33.4 g/dL (31.0-37.0); MCV 92.1 fL (80.0-100.0); Mean Platelet Volume 8.3; Monocytes # (A) 0.4 k/uL (0-1.0); Monocytes % (A) 4 %; Neutrophils # (A) 6.6 k/uL (1.3-7.7); Neutrophils % (A) 69 %; Platelet Count 254 k/uL (150-450); RBC 4.22 m/uL (3.80-5.40); RDW 12.8 % (11.5-15.5); WBC 9.5 k/uL (3.8-10.6)
[2024-02-28 20:44] LABS: INR 0.9 (<1.2); Prothrombin Time 9.7 sec (10.0-12.5)
[2024-02-28 20:49] LABS: ALT 7 U/L (4-34); AST 16 U/L (14-36); African American GFR (CKD) >90 (>60 ml/min/1.73 sqM); Albumin 3.5 g/dL (3.5-5.0); Alkaline Phosphatase 77 U/L (38-126); Amylase 56 U/L (30-110); Anion Gap 6 mmol/L; Blood Urea Nitrogen 6 mg/dL (7-17); Calcium 9.1 mg/dL (8.4-10.2); Carbon Dioxide 21 mmol/L (22-30); Chloride 106 mmol/L (98-107); Glucose 72 mg/dL (74-99); Magnesium 1.6 mg/dL (1.6-2.3); Non-African American GFR(CKD) >90 (>60 ml/min/1.73 sqM); Potassium 3.7 mmol/L (3.5-5.1); Sodium 133 mmol/L (137-145); Total Bilirubin 0.9 mg/dL (0.2-1.3); Total Protein 6.3 g/dL (6.3-8.2)
--- NOTE | 2024-02-28 21:08 | ED ---
Chest Pain HPI - General Chief Complaint: Chest Pain Stated Complaint: Chest pain Time Seen by Provider: 02/28/24 19:28 Source: patient Mode of arrival: ambulatory Limitations: no limitations - History of Present Illness Initial Comments: 28-year-old female currently 28 weeks G4, P3 presenting with chief complaint of chest pain. Patient states that earlier today when she woke up she was having some chest pain located in the center of her chest that felt like a stabbing pain that the pain went away after she got started with her day. This evening the pain returned it was a bit stronger. Pain comes and goes, worse when she coughs. Patient just started coughing today. No unequal swelling of the legs. No recent surgery or long travel. No history of blood clots. No fever congestion sore throat. No nausea vomiting abdominal pain or vaginal bleeding. No shortness of breath. - Related Data Home Medications Medication Instructions Recorded Confirmed Vit No.180/Iron/Folic 1 tab PO DAILY 08/03/20 04/02/22 [ Plus Tablet] Previous Rx's Medication Instructions Recorded Lidocaine 5% Patch [Lidoderm 5% 1 patch TOPICAL DAILY PRN #30 patch 03/06/23 Patch] methocarbamoL [Robaxin-750] 1,500 mg PO TID PRN #30 tab 03/06/23 predniSONE 50 mg PO DAILY 5 Days #5 tab 03/06/23 Cephalexin [Keflex] 500 mg PO Q8HR #21 cap 10/07/23 Metoclopramide [Reglan] 10 mg PO TID PRN #15 tab 10/07/23 Cefpodoxime Proxetil [Vantin] 200 mg PO Q12HR 7 Days #14 tab 10/18/23 Ondansetron Odt [Zofran Odt] 4 mg PO Q8HR PRN #20 tab 10/18/23 Cephalexin [Keflex] 500 mg PO Q12HR 5 Days #10 cap 02/29/24 Allergies Allergy/AdvReac Type Severity Reaction Status Date / Time No Known Allergies Allergy Verified 02/28/24 19:21 Review of Systems ROS Statement: Those systems with pertinent positive or pertinent negative responses have been documented in the HPI. ROS Other: All systems not noted in ROS Statement are negative. EKG Findings - EKG Comments: EKG Findings:: Sinus rhythm ventricular rate 67. ID interval 133. QRS 82. QT 3 of 5. QTc 401. Past Medical History Past Medical History: No Reported History History of Any Multi-Drug Resistant Organisms: None Reported Past Surgical History: Cholecystectomy Additional Past Surgical History / Comment(s): august 2019 gallbladder removed Past Anesthesia/Blood Transfusion Reactions: No Reported Reaction Past Psychological History: No Psychological Hx Reported Smoking Status: Never smoker Past Alcohol Use History: None Reported Past Drug Use History: None Reported - Past Family History Father History Unknown: Yes Mother Family Medical History: Fibromyalgia Additional Family Medical History / Comment(s): emphysema General Exam Limitations: no limitations General appearance: alert, in no apparent distress Head exam: Present: atraumatic, normocephalic, normal inspection Eye exam: Present: normal appearance, EOMI Neck exam: Present: normal inspection. Absent: meningismus Respiratory exam: Present: normal lung sounds bilaterally. Absent: respiratory distress, wheezes, rales, rhonchi, stridor Cardiovascular Exam: Present: regular rate, normal rhythm, normal heart sounds. Absent: systolic murmur, diastolic murmur, rubs, gallop, clicks Extremities exam: Present: pedal edema (Equal bilaterally, patient is 28 weeks ) Neurological exam: Present: alert, oriented X3 Psychiatric exam: Present: normal affect, normal mood Skin exam: Present: warm, dry, normal color Course Vital Signs 02/28/24 02/28/24 02/28/24 19:18 19:42 20:20 Temperature 98.7 F Pulse Rate 83 60 Pulse Rate [ 71 Right Supine Radial] Respiratory 16 15 Rate Blood Pressure 135/85 108/73 O2 Sat by Pulse 100 99 Oximetry 02/28/24 02/28/24 02/29/24 21:24 23:00 00:00 Temperature Pulse Rate 67 70 62 Pulse Rate [ Right Supine Radial] Respiratory 18 18 18 Rate Blood Pressure 122/82 120/76 119/61 O2 Sat by Pulse 97 97 95 Oximetry Chest Pain MDM - MDM Was pt. sent in by a medical professional or institution (, [facility], CITY MAINTENANCE MANAGER, urgent care, hospital, or alf...) When possible be specific @ -No Did you speak to anyone other than the patient for history (EMS, parent, family, police, friend...)? What history was obtained from this source @ -No Did you review nursing and triage notes (agree or disagree)? Why? @ -I reviewed and agree with nursing and triage notes Were old charts reviewed (outside hosp., previous admission, EMS record, old EKG, old radiological studies, urgent care reports/EKG's, alf records)? Report findings @ -No old charts were reviewed Differential Diagnosis (chest pain, altered mental status, abdominal pain women, abdominal pain men, vaginal bleeding, weakness, fever, dyspnea, syncope, headache, dizziness, GI bleed, back pain, seizure, CVA, palpatations, mental health, musculoskeletal)? @ -MDM Differential Chest Pain: Stable Angina, Unstable Angina, STEMI, NSTEMI Aortic Dissection, Pneumothorax, Musculoskeletal, Esophageal Spasm GERD, Cholecystitis, Pancreatitis, Zoster This is not meant to be an all-inclusive list. EKG interpreted by me (3pts min.). @ -As above X-rays interpreted by me (1pt min.). @ -Chest x-ray shows no acute process CT interpreted by me (1pt min.). @ -None done U/S interpreted by me (1pt. min.). @ -Ultrasound negative for DVT What testing was considered but not performed or refused? (CT, X-rays, U/S, labs)? Why? @ -None What meds were considered but not given or refused? Why? @ -None Did you discuss the management of the patient with other professionals (professionals i.e. , PA, CITY MAINTENANCE MANAGER, lab, RT, psych nurse, manager social services, machine lead burner, teacher, radiological defense officer, disease case manager rn)? Give summary @ -No Was smoking cessation discussed for >3mins.? @ -No Was critical care preformed (if so, how long)? @ -No Were there social determinants of health that impacted care today? How? (Homelessness, low income, unemployed, alcoholism, drug addiction, transportation, low edu. Level, literacy, decrease access to med. care, penitentiary, rehab)? @ -No Was there de-escalation of care discussed even if they declined (Discuss DNR or withdrawal of care, Hospice)? DNR status @ -No What co-morbidities impacted this encounter? (DM, HTN, Smoking, COPD, CAD, Cancer, CVA, ARF, Chemo, Hep., AIDS, mental health diagnosis, sleep apnea, morbid obesity)? @ -None Was patient admitted / discharged? Hospital course, mention meds given and route, prescriptions, significant lab abnormalities, going to OR and other pertinent info. @ -28-year-old female presenting with chief complaint of chest pain. Currently 28 weeks . History and physical examination are conducted. PERC negative. No leukocytosis or anemia. Negative troponin. Initial glucose 72, repeat 65, patient was given dextrose. Moderate leukocytes and 3 WBCs in the urine, will be treated for asymptomatic bacteria. Ultrasound is negative for DVT. On reassessment the patient is resting comfortably showing no acute signs of distress. She is educated on today's findings and treatment plan. She is eager for discharge home. Follow-up with PCP, may need Holter monitor or echo. Follow-up with OBGYN. Report back to ER with any new or worsening symptoms. Discussed return parameters and answered all questions. Patient conveyed verbal understanding and agreed to the plan. I discussed this case in detail with my attending Dr. Abraham Undiagnosed new problem with uncertain prognosis? @ -No Drug Therapy requiring intensive monitoring for toxicity (Heparin, Nitro, Insulin, Cardizem)? @ -No Were any procedures done? @ -No Diagnosis/symptom? @ -Atypical chest pain, asymptomatic bacteria Acute, or Chronic, or Acute on Chronic? @ -Acute Uncomplicated (without systemic symptoms) or Complicated (systemic symptoms)? @ -uncomplicated Side effects of treatment? @ -No Exacerbation, Progression, or Severe Exacerbation? @ -No Poses a threat to life or bodily function? How? (Chest pain, [place], [place], pneumonia, PE, COPD, DKA, ARF, appy, cholecystitis, CVA, Diverticulitis, Homicidal, Suicidal, threat to staff... and all critical care pts) @ -Low likelihood Disposition Clinical Impression: Atypical chest pain, Asymptomatic bacteriuria Disposition: HOME SELF-CARE Condition: Good Instructions (If sedation given, give patient instructions): Chest Pain (ED) Additional Instructions: Follow-up with PCP and PRODUCTION BOW MAKER. Report back to ER with any new or worsening symptoms. Prescriptions: Cephalexin [Keflex] 500 mg PO Q12HR 5 Days #10 cap Is patient prescribed a controlled substance at d/c from ED?: No Referrals: Jena Couch MD [Primary Care Provider] - 1-2 days Time of Disposition: 01:19
[2024-02-28 21:25] VITALS: RESP 18
[2024-02-28] MEDS: ORPHENADRINE 30 MG/ML 2 ML VIAL IVP STA (21:30)
[2024-02-28] MEDS: KETOROLAC 15 MG/ML 1 ML VIAL IVP STA (21:30)
[2024-02-28 21:33] LABS: Appearance,Urine Cloudy (Clear); Bacteria,Urine Occasional /hpf; Bilirubin,Urine Negative (Negative); Blood,Urine Negative (Negative); Budding Yeast,Urine Occasional /hpf; Color,Urine Light Yellow; Glucose,Urine (UA) Negative (Negative); Ketones,Urine Negative (Negative); Leukocyte Esterase,Urine Moderate (Negative); Mucus,Urine Occasional /hpf; Nitrite,Urine Negative (Negative); PH, Urine 6.5 (5.0-8.0); Protein,Urine Negative (Negative); RBC,Urine 1 /hpf (0-5); Specific Gravity,Urine 1.019 (1.001-1.035); Squamous Epithelial Cell,Urine 8 /hpf (0-4); Urobilinogen,Urine <2.0 mg/dL (<2.0); WBC,Urine 3 /hpf (0-5)
[2024-02-28 22:02] LABS: Glucose,Whole Blood 65 mg/dL (70-110)
[2024-02-28] MEDS: DEXTROSE 50% SYRINGE 50 ML IVP STA (22:09)
[2024-02-28 22:36] LABS: Glucose,Whole Blood 152 mg/dL (70-110)
[2024-02-29 00:28] VITALS: BP 119/61; PULSE 62
--- NOTE | 2024-02-29 01:09 | US ---
EXAM: US Duplex Bilateral Lower Extremities Veins CLINICAL HISTORY: Swelling, CP, TECHNIQUE: Real-time duplex ultrasound scan of the bilateral lower extremity veins integrating B-mode two-dimensional vascular structure, Doppler spectral analysis, color flow Doppler imaging and compression. COMPARISON: No relevant prior studies available. FINDINGS: Study limited by body habitus and edema. Right deep veins: Unremarkable. No DVT in the right common femoral, femoral, proximal deep femoral or popliteal veins. The veins demonstrate normal color flow, are normally compressible, with normal phasic flow and/or augmentation response. Right superficial veins: Unremarkable. No thrombus in the visualized right great saphenous vein. Left deep veins: Unremarkable. No DVT in the left common femoral, femoral, proximal deep femoral or popliteal veins. The veins demonstrate normal color flow, are normally compressible, with normal phasic flow and/or augmentation response. Left superficial veins: Unremarkable. No thrombus in the visualized left great saphenous vein. Soft tissues: Bilateral subcutaneous edema. No popliteal cyst. IMPRESSION: No evidence of deep venous thrombosis. Bilateral subcutaneous edema.
== END 2024-02-29 01:30 | disposition home or self-care (01) ==
LOC: EC 19:16
DX: O99.413 Diseases of the circulatory system complicating pregnancy, third trimester (principal); O26.893 Other specified pregnancy related conditions, third trimester; R82.71 Bacteriuria; R07.89 Other chest pain; Z3A.28 28 weeks gestation of pregnancy
CPT/HCPCS: 36415; 93005; 80053; 82150; 83735; 84484; 85025; 85610; 85730; 81001; 71046; 93970; 99285; 96374; 96375 ×2; 96361; J2360; J1885

== ENCOUNTER 2024-05-08 06:52 | Inpatient (IN) | payer OTHER ==
[2024-05-08] MEDS ORDERED: OXYTOCIN 10 UNIT/ML 1 ML VIAL IM PRN (08:13)
[2024-05-08] MEDS ORDERED: miSOPROStoL 200 MCG TAB RECTAL PRN (08:13)
[2024-05-08] MEDS ORDERED: METHYLERGONOVINE 0.2 MG/ML 1 ML AMP IM PRN (08:13)
[2024-05-08] MEDS ORDERED: CARBOPROST TROMETHAMINE 250 MCG/ML 1 ML AMP IM PRN (08:13)
[2024-05-08] MEDS ORDERED: LIDOCAINE 0.5% (PF) 5 MG/ML (50 ML SDV) SQ PRN (08:13)
[2024-05-08] MEDS ORDERED: miSOPROStoL 200 MCG TAB PO PRN (08:13)
[2024-05-08] MEDS ORDERED: TERBUTALINE 1 MG/ML VIAL SQ PRN (08:13)
[2024-05-08] MEDS ORDERED: TRANEXAMIC 1,000 MG/100ML-NACL 1,000 MG in EMPTY BAG 1 BAG IV PRN (08:13)
[2024-05-08] MEDS: LACTATED RINGERS 1,000 ML IV SCH (08:45)
[2024-05-08 08:52] LABS: Basophils % (A) 0 %; Eosinophils # (A) 0.1 k/uL (0-0.7); Eosinophils % (A) 1 %; HCT 44.2 % (34.0-46.0); HGB 14.7 gm/dL (11.4-16.0); Lymphocytes # (A) 1.8 k/uL (1.0-4.8); Lymphocytes % (A) 18 %; MCH 30.5 pg (25.0-35.0); MCHC 33.3 g/dL (31.0-37.0); MCV 91.8 fL (80.0-100.0); Mean Platelet Volume 8.9; Monocytes # (A) 0.3 k/uL (0-1.0); Monocytes % (A) 3 %; Neutrophils # (A) 7.7 k/uL (1.3-7.7); Neutrophils % (A) 76 %; Platelet Count 242 k/uL (150-450); RBC 4.81 m/uL (3.80-5.40); RDW 13.3 % (11.5-15.5); WBC 10.1 k/uL (3.8-10.6)
--- NOTE | 2024-05-08 10:47 | P.HPOB ---
History of Present Illness H&P Date: 05/08/24 Chief Complaint: 38+ weeks, labor Patient is a 29-year-old 4 para 3-0-0-3 admitted at 38+ weeks as established by 7-week ultrasound. She is admitted in early active labor with all signs reassuring, category 1 heart rate tracing. Her has been complicated only by finding of polyhydramnios for which she has had reassuring testing on a weekly basis since the diagnosis. On labor and delivery, she has had an epidural catheter placed for analgesia. She has just recently undergone artificial rupture of membranes for clear fluid. Group B strep status is negative. Obstetrical history: 4 para 3-0-0-3 with 3 term vaginal deliveries without complications. Current statistics are listed in history of present illness. EDC of 05/19/2024 was established by 7-week ultrasound. Laboratory workup demonstrates a blood type of O+ with a negative antibody screen. Rubella status is immune. The remainder of the laboratory workup is within normal limits. Early Glucola as well as second trimester Glucola were normal and group B strep status is negative. Gynecologic history: Unremarkable with no history of any infections to include STDs. Review of Systems Review of systems is confined to history of present illness. Past Medical History Past Medical History: No Reported History History of Any Multi-Drug Resistant Organisms: None Reported Past Surgical History: Cholecystectomy Additional Past Surgical History / Comment(s): august 2019 gallbladder removed Past Anesthesia/Blood Transfusion Reactions: No Reported Reaction Past Psychological History: No Psychological Hx Reported Smoking Status: Never smoker Past Alcohol Use History: None Reported Past Drug Use History: None Reported - Past Family History Father History Unknown: Yes Mother Family Medical History: Fibromyalgia Additional Family Medical History / Comment(s): emphysema Medications and Allergies Home Medications Medication Instructions Recorded Confirmed Type Vit No.180/Iron/Folic 1 tab PO DAILY 08/03/20 05/08/24 History [ Plus Tablet] Allergies Allergy/AdvReac Type Severity Reaction Status Date / Time No Known Allergies Allergy Verified 05/08/24 06:59 Exam Vital Signs Temp Pulse Resp BP Pulse Ox 05/08/24 08:44 85 18 113/65 05/08/24 06:57 97.6 F 92 18 118/94 100 Intake and Output 05/07/24 05/08/24 05/08/24 22:59 06:59 14:59 Other: Weight 109.769 kg In general, this is a well-developed, well-nourished white female in no acute distress. Her heart has a regular rhythm and rate without murmur. Her lungs clear to auscultation bilateral in all weaver. Her abdomen is gravid, nondistended, has normal active bowel sounds, is soft, nontender, and without any palpable masses aside from the uterine fundus. Her extremities are without any cyanosis, clubbing, or edema and are nontender to palpation bilaterally. Digital cervical examination demonstrates the cervix to be approximately 5 cm dilated, 90% effaced, the vertex and presentation at -2 to -3 station and quite anterior. Artificial rupture of membranes is carried out demonstrating clear fluid. Results Result Diagrams: 05/08/24 08:34 Assessment and Plan (1) Active labor at term Current Visit: Yes Status: Acute Code(s): [id number] - SNOMED Code(s): 73536913 Plan: The patient has been admitted for active management of labor. She will have close maternal and surveillance and expectant management will be practiced. An epidural catheter has been placed for analgesia. Should she make no significant progress over the next hour or 2, Pitocin augmentation will be added. I would anticipate normal spontaneous vaginal delivery in the next several hours.
[2024-05-08] MEDS ORDERED: OXYTOCIN 30 UNITS/500 ML NS 30 UNIT in SALINE 1 500ML.BAG IV SCH (11:30)
[2024-05-08] MEDS: OXYTOCIN 30 UNITS/500 ML NS 30 UNIT in SALINE 1 500ML.BAG IV SCH (11:40)
[2024-05-08] MEDS ORDERED: diphenhydrAMINE 50 MG/ML 1 ML VIAL IVP PRN ×2 (15:56)
[2024-05-08] MEDS ORDERED: diphenhydrAMINE 50 MG CAP PO PRN (15:56)
[2024-05-08] MEDS ORDERED: ACETAMINOPHEN TAB 500 MG TAB PO PRN (15:56)
[2024-05-08] MEDS ORDERED: BENZOCAINE/MENTHOL SPRAY 1 GM/SPRAY AEROSOL TOPICAL PRN (15:56)
[2024-05-08] MEDS ORDERED: LANOLIN CREAM 1 GM TUBE TOPICAL PRN (15:56)
[2024-05-08] MEDS ORDERED: HYDROCORTISONE 2.5% RECTAL CREAM 30 GM TUBE RECTAL PRN (15:56)
[2024-05-08] MEDS ORDERED: diphenhydrAMINE 25 MG CAP PO PRN (15:56)
[2024-05-08] MEDS ORDERED: ZOLPIDEM 5 MG TAB PO PRN (15:56)
[2024-05-08] MEDS ORDERED: SIMETHICONE 80 MG CHEWABLE PO PRN (15:56)
--- NOTE | 2024-05-08 16:00 | P.PROBDLV ---
Vaginal Delivery Note - . Vaginal Delivery Note: The patient is a 29-year-old 4 para 3-0-0-3 admitted at 38-3/7 weeks by good dating parameters. She is admitted in early active labor with all signs reassuring, category 1 heart rate tracing. Her has been uncomplicated aside from polyhydramnios in the third trimester with reassuring testing on a weekly basis since the diagnosis. Group B strep status is negative. On labor and delivery, she made progress to approximately 5 cm of dilation and then underwent artificial rupture of membranes for clear fluid. She made little progress over the next hour or 2 and had Pitocin augmentation started. She then progressed fairly consistently to complete and pushed over the course of approximately 35 minutes to a normal spontaneous vaginal delivery of a viable 7 pound 8 ounce baby girl with Apgars of 8 at 1 minute and 9 at 5 minutes delivered in the direct occiput anterior position. There was a loose nuchal cord x 1 which was reduced following delivery of the . The placenta was delivered spontaneously, intact, and grossly normal with a grossly normal three-vessel cord inserted approximately 5 to 6 cm from the margin of the placental disc. There were no lacerations of the perineum, vagina, or cervix. Estimated blood loss for the case was approximately 150 mL. There were no complications. All sponge, instrument, and needle counts were correct. Both mother and are resting comfortably in recovery.
[2024-05-08] MEDS: INFLUENZA VACC (6 MOS-64 YRS) 45 MCG/0.5 ML SYRINGE IM ONE (16:55)
[2024-05-08 20:26] VITALS: RESP 16
[2024-05-08] MEDS: SENNOSIDES-DOCUSATE SODIUM 1 EACH TAB PO SCH (20:26)
[2024-05-09] MEDS: IBUPROFEN 800 MG TAB PO PRN (03:01)
[2024-05-09 06:42] LABS: Basophils % (A) 0 %; Eosinophils # (A) 0.1 k/uL (0-0.7); Eosinophils % (A) 1 %; HCT 39.8 % (34.0-46.0); HGB 12.9 gm/dL (11.4-16.0); Lymphocytes # (A) 2.1 k/uL (1.0-4.8); Lymphocytes % (A) 21 %; MCH 30.2 pg (25.0-35.0); MCHC 32.3 g/dL (31.0-37.0); MCV 93.4 fL (80.0-100.0); Mean Platelet Volume 8.2; Monocytes # (A) 0.4 k/uL (0-1.0); Monocytes % (A) 4 %; Neutrophils # (A) 7.2 k/uL (1.3-7.7); Neutrophils % (A) 72 %; Platelet Count 230 k/uL (150-450); RBC 4.26 m/uL (3.80-5.40); RDW 12.8 % (11.5-15.5)
[2024-05-09 07:48] VITALS: BP 111/76; PULSE 86; TEMP 98.9
--- NOTE | 2024-05-09 08:46 | P.DS ---
Providers Date of admission: 05/08/24 08:19 Expected date of discharge: 05/09/24 Attending physician: Antonette Arora Primary care physician: Stated None - Discharge Diagnosis(es) (1) Active labor at term Current Visit: Yes Status: Acute (2) Polyhydramnios Current Visit: Yes Status: Acute (3) Status post vaginal delivery Current Visit: Yes Status: Acute Hospital Course: This is a 29-year-old 4 para 4 that presented to labor and delivery on 05/08 with complaints of regular painful contractions at 38-3/7 weeks. Patient had been receiving routine care which was complicated by diagnosis of polyhydramnios. 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 Patient was noted to be 5 cm. Patient underwent amniotomy and clear fluid was obtained. Patient progressed through labor and did become uncomfortable. Epidural was requested and placed by the anesthesia department. Patient progressed to complete began pushing and had a normal spontaneous vaginal delivery of a viable female at 1539, weight of 7 pounds 8 ounces, Apgars of 8 and 9 at 1 and 5 minutes respectively. Patient's course has been uneventful. In this day #1 she is ambulating and voiding without difficulty. She is tolerating a regular diet without nausea or vomiting. States her pain is well-controlled. She would like discharge home at 24 hours. Patient Condition at Discharge: Good Plan - Discharge Summary New Discharge Prescriptions: No Action Vit No.180/Iron/Folic [ Plus Tablet] 1 tab PO DAILY Discharge Medication List Vit No.180/Iron/Folic [ Plus Tablet] 1 tab PO DAILY 08/03/20 [History] Follow up Appointment(s)/Referral(s): Antonette Arora DO [Doctor of Osteopathic Medicine] - 6 Weeks Patient Instructions/Handouts: Vaginal Delivery (GEN), Vaginal Delivery (DC) Activity/Diet/Wound Care/Special Instructions: No tub baths or intercourse until 6 weeks . [id number] ibuprofen 600 mg or 3 tablets every 6 hours as needed for pain. Routine visit in 6 weeks, should she have any concerns prior to this visit she is urged to call the office. Discharge Disposition: HOME SELF-CARE
== END 2024-05-09 16:30 | disposition home or self-care (01) | DRG 807 ==
LOC: FBPOP 06:52 → 4FBP 08:19
PROVIDERS: ADMIT Obstetrics & Gynecology; ATTEND Obstetrics & Gynecology Obstetrics
PROC: 3E02340 Introduction of Influenza Vaccine into Muscle, Percutaneous Approach (ICD-10-PCS; principal; 2024-05-08)
PROC: 10907ZC Drainage of Amniotic Fluid, Therapeutic from Products of Conception, Via Natural or Artificial Opening (ICD-10-PCS; principal; 2024-05-08)
PROC: 10E0XZZ Delivery of Products of Conception, External Approach (ICD-10-PCS; principal; 2024-05-08)
DX: O40.3XX0 Polyhydramnios, third trimester, not applicable or unspecified (principal); O69.81X0 Labor and delivery complicated by cord around neck, without compression, not applicable or unspecified; Z23 Encounter for immunization; Z3A.38 38 weeks gestation of pregnancy; Z37.0 Single live birth
CPT/HCPCS: 59025; 85025; 86850; 86900; 86901; 90656; 99213

== ENCOUNTER → 2024-11-05 | Outpatient (CLI) | payer OTHER ==
[2024-11-05 15:08] LABS: T4, Free (Free Thyroxine) 0.98 ng/dL (0.80-1.80)
== END | disposition home or self-care (01) ==
LOC: LABWHC1 10:38
PROVIDERS: ATTEND Obstetrics & Gynecology Reproductive Endocrinology
DX: E34.9 Endocrine disorder, unspecified (principal)
CPT/HCPCS: 36415; 84439; 84443